=== PATIENT | male | born 1950 | race Caucasian/White ===

== ENCOUNTER 2017-04-11 03:19 | Observation (INO) | payer MEDICAID ==
[2017-04-11] MEDS ORDERED: Enoxaparin(*) 40 MG/0.4 ML SYR SUBCUT SCH (07:00)
[2017-04-11] MEDS ORDERED: LORazepam TAB(*) 0.5 MG PO PRN (07:48)
[2017-04-11] MEDS ORDERED: hydrOXYzine HCL TAB* 25 MG PO PRN (07:48)
[2017-04-11] MEDS ORDERED: Nitroglycerin TAB 0.4 MG* 0.4 MG TAB SL PRN (07:48)
[2017-04-11] MEDS ORDERED: Acetaminophen TAB* 325 MG PO PRN (07:48)
[2017-04-11] MEDS ORDERED: Metoprolol Tartrate TAB* 25 MG PO SCH (09:00)
[2017-04-11] MEDS: Mometasone/Formoter 100/5 MDI INH SCH ×2 (09:47→20:17)
[2017-04-11] MEDS: Rivaroxaban TAB(*) 20 MG TAB PO SCH (10:11)
[2017-04-11] MEDS: levETIRAcetam TAB* 500 MG PO SCH ×2 (10:11→21:23)
[2017-04-11] MEDS: Tamsulosin CAP* 0.4 MG PO SCH (10:12)
[2017-04-11] MEDS: Metoprolol Tartrate TAB* 25 MG PO SCH ×2 (10:12→21:23)
[2017-04-11] MEDS: Omeprazole CAP* 20 MG PO SCH (10:12)
[2017-04-11] MEDS: Docusate CAP* 100 MG PO SCH ×2 (10:12→21:23)
[2017-04-11] MEDS: Aspirin Low Dose CHEW TAB* 81 MG PO SCH (10:13)
[2017-04-11] MEDS: Magnesium Oxide TAB* 400 MG PO SCH (10:13)
[2017-04-11] MEDS: hydrALAZINE TAB* 25 MG PO SCH ×3 (10:13→21:23)
[2017-04-11] MEDS: Multivitamins/Minerals TAB PO SCH (10:14)
[2017-04-11] MEDS: busPIRone TAB* 5 MG PO SCH ×2 (10:14→21:23)
[2017-04-11] MEDS: IPRATROPIUM BROMIDE 0.03% BOTH NARES SCH ×2 (10:35→21:24)
[2017-04-11] MEDS: CMC:Varenicline (NF) 1 MG TAB PO SCH ×2 (10:38→21:23)
--- NOTE | 2017-04-11 12:17 | HP ---
CC: Dr. Zeus Sandoval, [facility] HISTORY AND PHYSICAL: DATE OF ADMISSION: 04/11/17 TIME OF EVALUATION: 7:15 a.m. PRIMARY CARE PROVIDER: Dr. Zeus Sandoval at [facility]. CHIEF COMPLAINT: Chest pain. HISTORY OF PRESENT ILLNESS: Mr. Aguilera is a 66-year-old male with a past medical history of schizop hrenia, seizure disorder, COPD, diverticulosis, hypertension, tobacco abuse, who presented to [facility]'s Emergency Room with complaints of chest pain. The patient states he was in his usual state of health until 4 days ago when he started to have left -sided chest pain, radiating to his axilla, rated at 8/10. He is unable to describe its nature. He states that he was lying in bed watching TV and he did not want to worry anyone, so he just stayed in bed and after 10 to 15 minutes, the pain resolved. It was not associated with dizziness, lighthe adedness, palpitations, shortness of breath, diaphoresis, nausea, vomiting, or other symptoms. He s tates the next day, he was walking to his room and he had another similar episode. He laid in his b ed and after 10 to 15 minutes, the pain resolved once more. Yesterday, as he had an episode for the third time, he decided to ask for help and was taken to the emergency room for further evaluation. The patient states that he received 2 nitroglycerins in the emergency room and his pain resolved, and he states that he is still chest pain-free at this time. As per records from [place], the patient's EKG showed sinus rhythm with a left axis deviation and a right ventricular conduction delay. His first troponin was 0.007 and a repeat one had increased to 0.021, and for that reason, they consulted [place] [facility] [place] t o a facility with a cardiology service. The patient states that 20 years ago, he had a "heart attack." He does not remember in which hospit al he was admitted, but he denies having a stress test or a heart cath. He states that the pain he felt this time is different from the chest pain he experienced in the past. He states he last saw his primary care provider 3 weeks ago and was told that "everything was okay." At the time of our interview, the patient's only complaint is that he is hungry. PAST MEDICAL HISTORY: 1. Hypertension. 2. COPD. 3. Tobacco abuse. 4. Seizure disorder. 5. Schizophrenia. MEDICATION LIST: 1. Acetaminophen 650 mg p.o. q.4 hours p.r.n. pain or fever. 2. Ativan 0.5 mg p.o. daily as needed for anxiety. 3. Buspirone 15 mg p.o. b.i.d. 4. Colace 100 mg p.o. b.i.d. 5. Hydralazine 25 mg p.o. t.i.d. 6. Hydroxyzine 25 mg p.o. at bedtime as needed for insomnia. 7. Ipratropium nasal spray 0.03% to both nares b.i.d. 8. Keppra 1000 mg p.o. b.i.d. 9. Metoprolol tartrate 25 mg p.o. b.i.d. 10. Dulera 100/5 one puff inhaled b.i.d. 11. Multivitamin 1 tablet p.o. daily. 12. Nitroglycerin 0.4 mg sublingual q.5 minutes as needed for chest pain, maximum 3 doses. 13. Olanzapine 15 mg p.o. at bedtime. 14. Omeprazole 20 mg p.o. daily. 15. Xarelto 20 mg p.o. daily. 16. Tamsulosin 0.4 mg p.o. daily. 17. Chantix 1 mg p.o. b.i.d. ALLERGIES: With PENICILLIN and THORAZINE, the patient experienced swelling of his face. FAMILY HISTORY: The patient states he was adopted and does not know his family history. SOCIAL HISTORY: The patient is a smoker since age 17. He states that at his peak, he used to smoke 2 packs a day, but now he is down to 5 cigarettes a day. He denies alcohol use. He states when he was younger, he used marijuana, but denied any recent drug use. Surrogate decision maker is Vasyl Napoles, caregiver at [facility], phone number is [phone]. REVIEW OF SYSTEMS: A 14-point review of systems was performed and all the pertinent negative and po sitive findings are in the HPI. PHYSICAL EXAMINATION GENERAL: The patient is a pleasant elderly male, lying in bed, in no acute distress. VITAL SIGNS: Temperature 98.2, heart rate 62, respiratory rate is 18, oxygen saturation 97% on 2 L nasal cannula, blood pressure is 162/94. HEENT: Pupils are equal, moist mucous membranes. The patient is edentulous. CHEST: Breath sounds present bilaterally with no added sounds. CVS: Normal S1, S2. Regular rate and rhythm. ABDOMEN: Soft. Bowel sounds present. EXTREMITIES: No edema. NEUROLOGIC: He is alert, awake, and oriented x3. Able to move all 4 extremities. SKIN: There are no rashes. The patient has multiple tattoos. LABORATORY AND IMAGING DATA: At [facility], the patient had a troponin that was 0.007 and w ent up to 0.021. INR was 1.06. Urine toxicology was negative for opiates, oxycodone, barbiturates, tricyclic antidepressants, PCP, amphetamines, benzos, cocaine, and cannabis. Urinalysis was normal . Chemistries showed a sodium of 137, potassium of 3.9, chloride of 103, bicarb of 24, BUN of 5, cr eatinine of 1, glucose of 132, calcium of 8.6, third bilirubin of 0.3, AST 27, ALT 24, alk phos 83, CPK 202. CK-MB 3, serum total protein 7.2, albumin 3.8, D-dimer less than 400. CBC showed a WBC of 10, hemoglobin 14.3, hematocrit of 42, platelets 246 with 65% neutrophils. Chest x-ray done at [facility] was read as basilar scarring in the left lung base with no acu te cardiopulmonary disease and no interval change from prior. I did see his film and I did not see any acute pulmonary disease. EKG done at [place] showed sinus rhythm at 66 beats per minute with incomplete right bundle branch block. Left inferior fascicular block, but he had movement artifact. So another one was done and i t showed sinus bradycardia at 52 beats per minute with incomplete right bundle branch block, abnorma l left axis deviation, but no acute ischemic changes. Another E[place] [facility] [place] and it showed sin us rhythm at 62 beats per minute and no other significant changes from his prior EKGs done at [facility]. ASSESSMENT AND PLAN: Mr. Aguilera is a 66-year-old male with a past medical history of hypertension, chronic obstructive pulmonary disease, schizophrenia, seizure disorder, who was sent from [facility] for concern of chest pain with increase in troponins. 1. Chest pain. Rule out acute coronary syndrome. The patient is unable to give much more details about his pain, but it seems to be atypical in joe burger. He will be admitted to telemetry floor. He will be monitored on telemetry. He will have serial tro ponins. The patient states he had a workup for chest pain 20 years ago, but he is unable to give de tails of where it was done or test results. As outpatient, he is on aspirin and metoprolol. So, I will try to obtain records from Dr. Sandoval. The patient is also on Xarelto, but he does not know exactly why and I cannot find any specific dawson cation on his records at this time. We will obtain records from Dr. Sandoval to clarify it. If acute coronary syndrome is ruled out, the patient will undergo an exercise nuclear stress test. He is chest pain-free with no acute EKG changes. So, at this point, I do not think he needs to be a nticoagulated with heparin. If he develops further symptoms or if his troponins continue to trend u p, he may require it and at that point, he may need a Cardiology consultation. 2. Hypertension. We will continue metoprolol and hydralazine. 3. Schizophrenia. We will continue lorazepam, olanzapine, hydroxyzine. 4. Seizure disorder. We will continue Keppra. 5. DVT prophylaxis. The patient has a score of 4 on the DVT Prophylaxis Risk Assessment Guide and eveline burger is already on Xarelto. 6. Code status is full. TIME SPENT: Approximately 65 minutes was spent with the patient interview, medical record review, p hysical examination to complete this admission, and more than half this time was spent [id number] with the patient in coordination of care. [id number]/[facility] #: [id number]
[2017-04-11] MEDS ORDERED: OLANzapine TAB* 5 MG PO SCH (21:00)
[2017-04-12 05:13] LABS: Hematocrit 39 % (42-52); Hemoglobin 13.3 g/dl (14.0-18.0); Mean Corpuscular HGB Conc 34 g/dl (31-36); Mean Corpuscular Hemoglobin 28 pg (27-31); Mean Corpuscular Volume 83 fL (80-94); Mean Platelet Volume 10 um3 (7.4-10.4); Red Blood Count 4.77 10^6/ul (4.0-5.4); Red Cell Distribution Width 14 % (10.5-15); White Blood Count 9.8 10^3/ul (3.5-10.8)
[2017-04-12 05:27] LABS: BUN/Creatinine Ratio 13.3 (8-20); Calcium 8.8 mg/dL (8.6-10.3); EGFR Non-African American 93.3 (>60); HDL Cholesterol 26.9 mg/dL; Potassium 3.5 mmol/L (3.5-5.0)
[2017-04-12] MEDS: Multivitamins/Minerals TAB PO SCH (08:38)
[2017-04-12] MEDS: Rivaroxaban TAB(*) 20 MG TAB PO SCH (08:38)
[2017-04-12] MEDS: Omeprazole CAP* 20 MG PO SCH (08:38)
[2017-04-12] MEDS: CMC:Varenicline (NF) 1 MG TAB PO SCH (08:38)
[2017-04-12] MEDS: Docusate CAP* 100 MG PO SCH (08:39)
[2017-04-12] MEDS: Tamsulosin CAP* 0.4 MG PO SCH (08:39)
[2017-04-12] MEDS: hydrALAZINE TAB* 25 MG PO SCH ×2 (08:39→17:40)
[2017-04-12] MEDS: busPIRone TAB* 5 MG PO SCH (08:40)
[2017-04-12] MEDS: Aspirin Low Dose CHEW TAB* 81 MG PO SCH (08:40)
[2017-04-12] MEDS: Magnesium Oxide TAB* 400 MG PO SCH (08:40)
[2017-04-12] MEDS: levETIRAcetam TAB* 500 MG PO SCH (08:40)
[2017-04-12] MEDS: IPRATROPIUM BROMIDE 0.03% BOTH NARES SCH (08:41)
[2017-04-12] MEDS: Mometasone/Formoter 100/5 MDI INH SCH (09:34)
[2017-04-12] MEDS ORDERED: Regadenoson* 0.4 MG/5 ML SYRINGE ONE ×2 (13:18)
--- NOTE | 2017-04-12 14:08 | RAD ---
Edited for charges. INDICATION: Chest pain, shortness of breath, hypertension, tobacco use. COMPARISON: No relevant prior exams available on the [facility] PACS for comparison. TECHNIQUE: 10.990 mCi of Tc-99m Myoview were administered IV. SPECT images of the heart were obtained. Later on the same day. Under the direction of Dr. Ware, the patient was given an IV injection of a pharmacologic stress agent. Subsequently, the patient was given an IV injection of 25.580 mCi Tc-99m Myoview. SPECT images of the heart were obtained and a gated wall motion study was performed. FINDINGS: Gated wall motion images were obtained at stress and demonstrate wall motion to be within normal limits. The calculated left ventricular ejection fraction is 76 % at stress. Estimated LEFT ventricular end diastolic volume is 67 mL. TID 0.89. Diaphragmatic attenuation and inferior gut activity noted. Based on review of the attenuation corrected and non corrected images the distribution of radiopharmaceutical within the myocardium on the stress and rest images is within normal limits. No fixed or reversible regions of hypoperfusion evident. IMPRESSION: 1. No compelling evidence for stress-induced ischemia or infarct. 2. Normal LEFT ventricular wall motion and estimated ejection fraction. Normal range estimated LEFT ventricular end-diastolic volume. ASSESSMENT: LOW RISK. Based on imaging criteria from ACC/AHA 2002 Guideline Update for the Management of Patients With Chronic Stable Angina Table 23. Noninvasive Risk Stratification. MTDD
--- NOTE | 2017-04-12 15:11 | PN ---
Subjective Date of Service: 04/12/17 Interval History: Mr. Aguilera denies complaint today and is eager for discharge. He specifically denies chest pain, SOB, nausea, or abdominal pain. Objective Active Medications: Acetaminophen (Tylenol Tab*) 650 mg PO Q4HR PRN Aspirin (Aspirin Low Dose Tab*) 81 mg PO DAILY [facility] Buspirone HCl (Buspar Tab*) 15 mg PO BID [facility] Docusate Sodium (Colace Cap*) 100 mg PO BID [facility] Hydralazine HCl (Apresoline Tab*) 25 mg PO TID [facility] Hydroxyzine HCl (Atarax Tab*) 25 mg PO BEDTIME PRN Levetiracetam (Keppra Tab*) 1,000 mg PO BID [facility] Lorazepam (Ativan Tab(*)) 0.5 mg PO DAILY PRN Magnesium Oxide (Magox 400 Tab*) 400 mg PO DAILY [facility] Mometasone Furoate/Formoterol Fumar (Dulera 100/5 Mdi*) 1 puff INH BID [facility] Multivitamins/Minerals (Theragran/Minerals Tab*) 1 tab PO DAILY [facility] Nitroglycerin (Nitroglycerin Tab 0.4 Mg*) 0.4 mg SL Q5M PRN Nf:(Ipratropium [place] (Nasal) [ Ipratropium [place]] 0.03 %) 0.03 % BOTH NARES BID [facility] Olanzapine (Zyprexa Tab*) 15 mg PO BEDTIME [facility] Omeprazole (Prilosec Cap*) 20 mg PO DAILY [facility] Rivaroxaban (Xarelto (*)) 20 mg PO DAILY [facility] Tamsulosin HCl (Flomax Cap*) 0.4 mg PO DAILY [facility] Varenicline (Chantix (Nf)) 1 mg PO BID [facility] Vital Signs 04/11/17 04/11/17 04/11/17 15:14 19:28 23:22 Temperature 98.3 F 99.1 F 98.3 F Pulse Rate 62 82 81 Respiratory 16 16 22 Rate Blood Pressure 130/56 151/73 155/73 (mmHg) O2 Sat by Pulse 94 94 91 Oximetry 04/12/17 04/12/17 04/12/17 02:46 07:36 11:40 Temperature 99.2 F 97.7 F 98.4 F Pulse Rate 70 59 72 Respiratory 22 24 24 Rate Blood Pressure 139/51 148/73 138/73 (mmHg) O2 Sat by Pulse 91 95 90 Oximetry Oxygen Devices in Use Now: None Appearance: Male lying in bed in NAD Eyes: No Scleral Icterus Ears/Nose/Mouth/Throat: Mucous Membranes Moist Neck: NL Appearance and Movements; NL JVP Respiratory: Symmetrical Chest Expansion and Respiratory Effort, Clear to Auscultation Cardiovascular: NL Sounds; No Murmurs; No JVD, No Edema Abdominal: NL Sounds; No Tenderness; No Distention Lymphatic: No Cervical Adenopathy Extremities: No Edema Skin: No Rash or Ulcers Neurological: Alert and Oriented x 3, NL Muscle Strength and Tone Nutrition: Taking PO's Result Diagrams: 04/12/17 04:37 04/12/17 04:37 Microbiology and Other Data: Microbiology 04/11/17 07:30 Nasal Screen MRSA (PCR)(TAYLER) - Final Nasal Mrsa Negative Assess/Plan/Problems-Billing Assessment: Mr. Aguilera is a 66 yo male with a PMH of nicotine abuse, schizophrenia, and COPD who was admitted on 04/12/17 with chest pain. - Patient Problems (1) Chest pain Comment: - Trops negative, EKG without ischemia. - Stress test read as low risk with no evidence of reversible ischemia. (2) COPD (chronic obstructive pulmonary disease) Comment: - No evidence of exacerbation. - Continue dulera. (3) Nicotine abuse Comment: - Continue chantix. (4) Full code status (5) Seizure disorder Comment: - Continue keppra. (6) DVT prophylaxis Comment: - Patient on xarelto without clear indication. Have left a message with [facility] and Dr. Sandoval's nurse (his PCP). Status and Disposition: OBV. Discharge to home.
[2017-04-12 16:29] VITALS: BP 141/80
--- NOTE | 2017-04-13 02:17 | DS ---
CC: Dr. Zeus Sandoval, [place] * DISCHARGE SUMMARY: DATE OF ADMISSION: 04/11/17 DATE OF DISCHARGE: 04/12/17 PRIMARY CARE PROVIDER: Dr. Zeus Sandoval at [place]. ATTENDING PHYSICIAN: Dr. Venkat Morocho * (dictation provided by Umu Zimmer NP ). PRIMARY DIAGNOSIS: Chest pain. SECONDARY DIAGNOSES: 1. Hypertension. 2. Chronic obstructive pulmonary disease. 3. Tobacco abuse. 4. Seizure disorder. 5. Schizophrenia. MEDICATIONS AT THE TIME OF DISCHARGE: Unchanged that are: 1. Tylenol 650 mg p.o. q.4 hours p.r.n. pain or fever. 2. Ativan 0.5 mg p.o. daily as needed for anxiety. 3. BuSpar 15 mg p.o. b.i.d. 4. Colace 100 mg p.o. b.i.d. 5. Hydralazine 25 mg p.o. t.i.d. 6. Hydroxyzine 25 mg p.o. at bedtime as needed for insomnia. 7. Ipratropium nasal spray 0.03% to both nares b.i.d. 8. Keppra 1000 mg p.o. b.i.d. 9. Metoprolol tartrate 25 mg p.o. b.i.d. 10. Dulera 100/5 one puff inhaled b.i.d. 11. Multivitamin 1 tab p.o. daily. 12. Nitroglycerin 0.4 mg sublingually q.5 minutes as needed for chest pain. 13. Olanzapine 15 mg p.o. at bedtime. 14. Omeprazole 20 mg p.o. daily. 15. Xarelto 20 mg p.o. daily. 16. Tamsulosin 0.4 mg p.o. daily. 17. Chantix 1 mg p.o. b.i.d. HOSPITAL COURSE: Mr. Aguilera is a 66-year-old male with past medical history as outlined above, who presented to the emergency room on 04/11/17 with concern for chest pain. Please see the dictated H and P from Dr. Mariola Moncada for complete details. In brief, the patient had chest pain intermittently for about 4 days. In the emergency room, he had an EKG, which showed no evidence of ischemia and troponin, which was negative. Mr. Aguilera was placed on observation in the hospital. He had labs, which showed negative troponins x3. He had a stress test today, which was read as low risk with no evidence of reversible ischemia. Mr. Aguilera has been doing well since admission. He is not complaining of chest pain. His vital signs are stable. His exam is benign. Please see my daily progress note for complete details. Mr. Aguilera is medically stable for discharge back to Dr. Sandoval. I will note that the patient is on Xarelto and I cannot find a clear indication for that medication thoughI have called Dr. Sandoval's office and the [facility]. The [facility] reports that he was admitted there on Xarelto for DVT prophylaxis. It is not clear per our records that there is any history of DVT, PE or AFib. I have left a message both at the [facility] and with Dr. Sandoval's nurse, Annabelle , regarding this and asked them to make sure that they can verify indication for the Xarelto going forward. DISPOSITION: Home. DIET: Low-salt. ACTIVITY: As tolerated. FOLLOWUP PLANS: Please follow up with Dr. Sandoval per routine in the next 1 to 2 weeks regarding this acute hospitalization. UMU ZIMMER NP [id number]/[facility] #: [id number] MATTHIAS
== END 2017-04-12 18:33 | disposition home or self-care (01) ==
LOC: MEDTELE 06:20
PROVIDERS: ADMIT Internal Medicine; ATTEND Internal Medicine
DX: R07.9 Chest pain, unspecified (principal); I10 Essential (primary) hypertension; J44.9 Chronic obstructive pulmonary disease, unspecified; F17.200 Nicotine dependence, unspecified, uncomplicated; G40.909 Epilepsy, unspecified, not intractable, without status epilepticus; F20.9 Schizophrenia, unspecified; Z79.01 Long term (current) use of anticoagulants; Z88.0 Allergy status to penicillin; Z79.82 Long term (current) use of aspirin
CPT/HCPCS: 36415; 78452; 80048; 80061; 84484; 85025; 87641; 93005; 93017; 94640; A9270-GY; A9502; G0378; J2785

== ENCOUNTER 2018-10-13 11:13 | Inpatient (IN) | payer MEDICARE, MEDICAID ==
--- NOTE | 2018-10-13 12:16 | ED ---
Psychiatric Complaint - HPI Summary HPI Summary: 68 year old M brought in by police 941 to [facility] with a chief complaint of suicidal ideation since three days ago, worse since this morning. The patient rates the pain 2/10 in severity. Symptoms aggravated by nothing. Symptoms alleviated by nothing. Patient reports insomnia. He reports suicidal plan to cut his arms. Patient denies decreased appetite. Per police, patient refused to take his medication today. Patient is staying at [facility] in [place]. Patient has hx cutting. - History Of Current Complaint Chief Complaint: EDMentalHealth Time Seen by Provider: 10/13/18 11:53 Hx Obtained From: Patient, Other: - police Onset/Duration: Lasting Days - 3, Still Present, Worse Since - this morning Timing: Constant Severity Currently: Mild Aggravating Factor(s): Nothing Alleviating Factor(s): Nothing Has Suicidal: Reports: Thoughts, With A Plan - Allergies/Home Medications Allergies/Adverse Reactions: Allergies Allergy/AdvReac Type Severity Reaction Status Date / Time chlorpromazine Allergy Swelling Verified 10/13/18 11:54 [From Thorazine] Penicillins Allergy Swelling Verified 10/13/18 11:54 Home Medications: Home Medications Fluticasone-Salmeterol 250-50* [Advair Diskus 250-50*] 1 puff INH BID 10/13/18 [ History Confirmed 10/13/18] OLANzapine TAB* [Zyprexa 10 MG TAB*] 10 mg PO DAILY 10/13/18 [History Confirmed 10/13/18] Sertraline* [Zoloft*] 50 mg PO BEDTIME 10/13/18 [History Confirmed 10/13/18] traMADol TAB* [Ultram*] 50 mg PO DAILY 10/13/18 [History Confirmed 10/13/18] PMH/Surg Hx/FS Hx/Imm Hx Previously Healthy: No Endocrine/Hematology History: Denies: Hx Diabetes Cardiovascular History: Reports: Hx Angina, Hx Hypertension Denies: Hx Coronary Artery Disease, Hx Hypercholesterolemia, Hx Myocardial Infarction, Hx Valvular Heart Disease Respiratory History: Reports: Hx Chronic Obstructive Pulmonary Disease (COPD) Denies: Hx Asthma GI History: Comment Only: Other GI Disorders - c/o intermittent heartburn Sensory History: Reports: Hx Contacts or Glasses Denies: Hx Deafness, Hx Hearing Aid Opthamlomology History: Reports: Hx Contacts or Glasses Neurological History: Reports: Hx Headaches, Hx Seizures Psychiatric History: Reports: Hx Depression, Hx Inpatient Treatment, Hx Community Mental Health Tx, Hx Schizophrenia, Hx Suicide Attempt, Hx Substance Abuse Denies: Hx Eating Disorder, Hx of Violent Episodes Against Others - Surgical History Surgery Procedure, Year, and Place: rhinoplasty 1971. undescended L testicle 1968 Hx Anesthesia Reactions: No Infectious Disease History: No Infectious Disease History: Denies: Traveled Outside the [place] in Last 30 Days - Family History Known Family History: Positive: Other - patient is adopted so he does not know his family history - Social History Alcohol Amount: "as much as I can get" Hx Substance Use: Yes Substance Use Type: Reports: Marijuana Hx Tobacco Use: Yes Smoking Status (MU): Heavy Every Day Tobacco Smoker Type: Cigarettes Amount Used/How Often: 1 PPD Length of Time of Smoking/Using Tobacco: "years" Review of Systems Gastrointestinal: Negative - decreased appetite Positive: Other - suicidal ideation, suicidal plan, insomnia All Other Systems Reviewed And Are Negative: Yes Physical Exam - Summary Physical Exam Summary: Appearance: The patient is well-nourished in no acute distress and in no acute pain. Skin: Patient has well-healed scars on his L left forearm HEENT: The head is normocephalic and atraumatic. The pupils are equal and reactive. The conjunctivae are clear and without drainage. Nares are patent and without drainage. Mouth reveals moist mucous membranes and the throat is without erythema and exudate. The external ears are intact. The ear canals are patent and without drainage. The tympanic membranes are intact. Neck: The neck is supple with full range of motion and non-tender. There are no carotid bruits. There is no neck vein distension. Respiratory: Chest is non-tender. Lungs are clear to auscultation and breath sounds are symmetrical and equal. Cardiovascular: Heart is regular rate and rhythm. There is no murmur or rub auscultated. There is no peripheral edema and pulses are symmetrical and equal. Abdomen: The abdomen is soft and non-tender. There are normal bowel sounds heard in all four quadrants and there is no organomegaly palpated. Musculoskeletal: There is no back tenderness noted. Extremities are non-tender with full range of motion. There is good capillary refill. There is no peripheral edema or calf tenderness elicited. Neurological: Patient is alert and oriented to person, place and time. The patient has symmetrical motor strength in all four extremities. Cranial nerves are grossly intact. Deep tendon reflexes are symmetrical and equal in all four extremities. Psychiatric: The patient has an appropriate affect and does not exhibit any anxiety or depression Triage Information Reviewed: Yes Vital Signs On Initial Exam: Initial Vitals Temp Pulse Resp BP Pulse Ox 99.8 F 92 16 166/71 92 10/13/18 11:15 10/13/18 11:15 10/13/18 11:15 10/13/18 11:15 10/13/18 11:15 Vital Signs Reviewed: Yes Diagnostics - Vital Signs Vital Signs Temp Pulse Resp BP Pulse Ox 10/13/18 11:44 97 29 140/79 92 10/13/18 11:42 18 10/13/18 11:15 99.8 F 92 16 166/71 92 - Laboratory Result Diagrams: 10/13/18 12:52 10/13/18 16:10 Lab Statement: Any lab studies that have been ordered have been reviewed, and results considered in the medical decision making process. Course/Dx - Course Course Of Treatment: E spoke with Dr. Archer, psychiatry who offered Mr. Aguilera a voluntary admission which she accepted. - Differential Dx/Clinical Impression Provider Diagnosis: Unspecified mood [affective] disorder Discharge - Sign-Out/Discharge Documenting (check all that apply): Patient Departure - Admit Patient Received Moderate/Deep Sedation with Procedure: No - Discharge Plan Condition: Stable Disposition: PSYCHIATRIC FACILITY-OTHER - Billing Disposition and Condition Condition: STABLE Disposition: Psychiatric Facility Other - Attestation Statements Document Initiated by Scribe: Yes Documenting Scribe: Indy Carpenter Provider For Whom Gwen is Documenting (Include Credential): Juan José Frankel MD Scribe Attestation: IIndy, scribed for Juan José Frankel MD on 10/13/18 at 2044. Scribe Documentation Reviewed: Yes Provider Attestation: The documentation as recorded by the karinibIndy burger accurately reflects the service I personally performed and the decisions made by me, Juan José Frankel MD Status of Scribe Document: Viewed
[2018-10-13 13:07] LABS: ABS Basophils 0 10^3/ul (0-0.2); ABS Eosinophils 0 10^3/ul (0-0.6); ABS Lymphocytes 1.3 10^3/ul (1.0-4.8); ABS Monocytes 0.8 10^3/ul (0-0.8); ABS Neutrophils 5.7 10^3/ul (1.5-7.7); ABS Nucleated RBC 0 10^3/ul; Eosinophil % 0.6 %; Hematocrit 42 % (42-52); Hemoglobin 13.3 g/dl (14.0-18.0); Lymphocyte % 16.9 %; Mean Corpuscular HGB Conc 32 g/dl (31-36); Mean Corpuscular Hemoglobin 26 pg (27-31); Mean Corpuscular Volume 79 fL (80-94); Mean Platelet Volume 9.2 fL (7.4-10.4); Nucleated Red Blood Cells % 0; Platelet Count 175 10^3/ul (150-450); Red Blood Count 5.22 10^6/ul (4.00-5.40); Red Cell Distribution Width 16 % (10.5-15); White Blood Count 7.9 10^3/ul (3.5-10.8)
[2018-10-13 13:52] LABS: Acetaminophen < 15 mcg/mL; Alcohol < 10 mg/dL (<10); Salicylate < 2.50 mg/dL (<30)
[2018-10-13 15:40] LABS: Albumin 4.5 g/dL (3.2-5.2); Albumin/Globulin Ratio 1.8 (1-3); Alkaline Phosphatase 77 U/L (34-104); Anion Gap 15 mmol/L (2-11); BUN/Creatinine Ratio 6.8 (8-20); Blood Urea Nitrogen 7 mg/dL (6-24); CO2 Carbon Dioxide 17 mmol/L (22-32); Calcium 9.1 mg/dL (8.6-10.3); Chloride 106 mmol/L (101-111); EGFR African American 87.4 (>60); EGFR Non-African American 72.3 (>60); Globulin 2.5 g/dL (2-4); Glucose 86 mg/dL (70-100); Sodium 138 mmol/L (135-145)
[2018-10-13 15:41] LABS: ALT 12 U/L (7-52)
--- NOTE | 2018-10-13 16:07 | CONSULT ---
Consult Consult: Vital Signs Temp Pulse Resp BP Pulse Ox 98.8 F 66 16 171/67 97 10/13/18 15:06 10/13/18 15:06 10/13/18 15:06 10/13/18 15:06 10/13/18 15:06 Patient currently suicidal with plan to cut wrist with a razor. Patient requires Inpatient Psychiatric Hospitalization once medically cleared, Blood pressure currently 171/67.
[2018-10-13 16:46] LABS: Potassium Redraw 3.8 mmol/L (3.5-5.0)
[2018-10-13 17:03] LABS: TSH (Thyroid Stimulating Horm) 1.55 mcIU/mL (0.34-5.60)
[2018-10-13] MEDS ORDERED: Metoprolol Tartrate TAB* 25 MG PO ONE (17:41)
[2018-10-13] MEDS ORDERED: traMADol TAB* 50 MG PO ONE (17:41)
[2018-10-13] MEDS ORDERED: hydrALAZINE TAB* 25 MG PO ONE (17:41)
[2018-10-13 18:22] LABS: Urine Appearance Clear; Urine Bilirubin Negative (Negative); Urine Blood Negative (Negative); Urine Color Yellow; Urine Glucose Negative (Negative); Urine Ketones Negative (Negative); Urine Nitrite Negative (Negative); Urine Protein Negative (Negative); Urine Specific Gravity 1.012 (1.010-1.030); Urine Urobilinogen Negative (Negative)
[2018-10-13 18:40] LABS: Barbiturates Urine Screen None Detected (None Detect); Benzodiazepine Urine Screen None Detected (None Detect); Urine Cannabinoids Screen None Detected (None Detect)
[2018-10-13] MEDS ORDERED: Acetaminophen TAB* 325 MG PO PRN (21:15)
[2018-10-13] MEDS ORDERED: Nicotine GUM* 2 MG PO PRN (21:15)
[2018-10-13] MEDS ORDERED: Al Hydrox/Mg Hydrox/Simet LIQ* 30 ML UDC PO PRN (21:15)
[2018-10-13] MEDS ORDERED: Nitroglycerin TAB 0.4 MG* 0.4 MG TAB SL PRN (21:44)
[2018-10-13] MEDS ORDERED: Sertraline* 50 MG TAB PO SCH (22:15)
[2018-10-13] MEDS: Metoprolol Tartrate TAB* 25 MG PO SCH (22:55)
[2018-10-13] MEDS: hydrALAZINE TAB* 25 MG PO SCH (22:55)
[2018-10-13] MEDS: busPIRone TAB* 15 MG PO SCH (22:55)
[2018-10-13] MEDS: levETIRAcetam TAB* 500 MG PO SCH (22:55)
[2018-10-14 06:58] LABS: HDL Cholesterol 30.2 mg/dL
[2018-10-14] MEDS: Tamsulosin CAP* 0.4 MG PO SCH (12:39)
[2018-10-14] MEDS: Pantoprazole TAB * 40 MG TAB PO SCH (12:39)
[2018-10-14] MEDS: busPIRone TAB* 15 MG PO SCH ×2 (12:39→22:06)
[2018-10-14] MEDS: Vitamin THERAPEUTIC TAB PO SCH (12:39)
[2018-10-14] MEDS: levETIRAcetam TAB* 500 MG PO SCH ×2 (12:40→22:06)
[2018-10-14] MEDS: hydrALAZINE TAB* 25 MG PO SCH ×3 (12:40→22:06)
[2018-10-14] MEDS: traMADol TAB* 50 MG PO SCH (12:40)
[2018-10-14] MEDS: Rivaroxaban TAB(*) 20 MG TAB PO SCH (12:40)
[2018-10-14] MEDS: Metoprolol Tartrate TAB* 25 MG PO SCH ×2 (12:40→22:06)
[2018-10-14] MEDS: OLANzapine TAB* 10 MG PO SCH (12:41)
[2018-10-14] MEDS: FLUTICASONE SALMETEROL INH SCH ×2 (13:31→19:05)
--- NOTE | 2018-10-14 13:48 | HP ---
H&P (Free Text) History and Physical: Justification for admission: Immediate Safety. CC " I thought about cutting my wrist" The patient was brought to [facility] by ambulance after he stated he was going to the bathroom and cut his wrist with a razor blade. He denied access to firearms or stockpiles of medications. He reported adequate sleep and appetite. He reports that he has been staying at the [facility] and doesnt get to do the things he wants to do and that makes him feel depressed . He did not note what things he would like to do. He reported taking his medications The patient denied homicidal ideation intent or plan. The patient denied auditory and/ or visual hallucinations. MDD He reported feeling depressed for most of the time, lasting more than 2 weeks. He reported feelings of hopelessness and unintentional weight loss. Denied interruption of sleep or feeling tired throughout the day. He reported loss of energy or lack of motivation to complete tasks. He denied overwhelming feelings of guilt, or decreased concentration. Bipolar Denied symptoms of jocelynn such as having many ideas at once. Denied increased talkativeness where no one can interrupt. Denied feeling irritable most of the time while having an persistent abundance of energy most of the day without the use of energy drinks, stimulants, or recreational drug use. Denied an increase in intensity in goal directed activities. Denied having the decreased need to sleep for days , having prolonged elevated heighted mood , or feeling on top of the world. Denied impulsive risky sexual encounters. Denied spending money recklessly , going on spending sprees wiping out savings. Denied impulsively traveling out of town or country, having super fragoso, and unrealistic wealth or fame. Anxiety Denied having symptoms of anxiety such as having times where heart feels that it is beating out of chest , sweaty palms, or shallow breathing. Denied having uncomfortable or intrusive thoughts. Denied feeling restless, high strung, or worrying too much most of the time. Psychosis Does not endorse hearing things that other people do not hear or seeing things other people do not see. Denied feeling that TV is making references. Denied feeling that people are spying , following , or reading their thoughts. Phobias: Patient denied having excessive fear of a particular thing or situation. Eating disorders: Patient denied having excessive eating habits or feelings of guilt after eating. Denied repeated episodes of self induced vomiting after eating. PTSD Denied flashbacks, nightmares and avoidance of a prior traumatic event. PAST PSYCHIATRIC HISTORY: Prior Diagnosis : Major Depressive Disorder History of past Psychiatric Hospitalizations: 1 prior psychiatric admission in 1978 for cutting his wrist History of past suicide/homicide attempts : 1 past suicide attempt in 1978. Denied past homicidal incidents. Outpatient follow-up: Unable to recall the name of his doctor Medications: Past trials of medications include zoloft 50mg and buspar 15mg BID, zyprexa 10mg daily FAMILY HISTORY: - Suicide: Denied family history of suicide. - Mental illness: Denied history mental health in the family. - Substance abuse: Denied substance abuse among family members. SUBSTANCE ABUSE HISTORY: Denied using alcohol, heroin and cocaine other illicit substances. Denied abusing pills not prescribed . Denied past Substance abuse treatment. - Tobacco: 1/2 Pack per day SOCIAL HISTORY: - Childhood: Born and raised in [facility]. Raised by both parents who are both from unknown causes. 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 He is currently retired and living at the [facility]. He has no supportive contacts of family or friends. PAST MEDICAL HISTORY: Hypertension - Allergies: Penicillin and Thorazine Physical Exam: Please see ED note Mental Status Exam on Admission APPEARANCE : 68 year old white male who appears much older than stated age. He is laying in bed with long cadet and appears disheveled. BEHAVIOR: Cooperative , calm EYE CONTACT: Fair PSYCHOMOTOR ACTIVITY: psychomotor retardation. MOVEMENTS: No abnormal movements observed. SPEECH : Normal rate, rhythm, volume and tone. MOOD : " Okay " AFFECT : Constricted THOUGHT PROCESS: formulated and organized in a logical, linear goal directed manner. THOUGHT CONTENT: no delusions, preoccupations, obsessions, phobias or preoccupations. PERCEPTION: No current auditory or visual hallucinations. Doesnt appear to be responding to internal cues. No evidence of depersonalization , de-realization, or illusions SUICIDALITY Suicidal with plan to cut wrist HOMICIDALITY Denied homicidal ideation, intent or plan. ORIENTATION: Oriented to self, location, and time. Insight/judgment: Poor insight and judgment Diagnosis on Admission: Major depressive disorder. Nicotine use disorder Assessment: 68 year old with history of Major depressive disorder with plan to cut wrist with razor came to the hospital and was admitted to the [facility] at [facility]. Plan # Justification for Admission: For immediate safety per outlined in the [facility] Hygiene Code. # Voluntary admission. The patient requires inpatient admission at this time to assure safety, receive treatment and work toward stabilization. # Labs ordered: CBC, CMP, UDS, TSH, HbA1c, TSH, EKG #Admit to BSU, Q15 minute observation. Start regular diet. Encourage participation in activities on the milieu. # Obtain collateral information once release is signed. #Patient evaluated in ED and was determined by the emergency room Physician to be medically stable for admission to the BSU. # Collaboration with Social Work to work toward discharge planning. #Fall precautions #Order for wheelchair if he requires it to ambulate with constant observation. He currently has a walker. #Increase Zoloft to 75mg at nighttime. #Medicine consult placed for uncontrolled hypertension which seems to be fluctuating erratically during the times of medication administration #Goals before discharge include: Decrease depression and eradicate suicidal thoughts The risks, benefits, and alternative treatment options were discussed as well as of the risks of refusing treatment. After this discussion and an acknowledgement of this understanding was made. A risk benefit assessment of treatment was considered and discussed with the patient. When comparing the risks of treatment with the dangers of current clinical presentation. The benefits of treatment outweigh the treatment risks at this time. Risks of behavioral changes, Serotonin syndrome, metabolic risks and were among some of the risks discussed. Acetaminophen (Tylenol Tab*) 650 mg PO Q4H PRN PRN Reason: PAIN or TEMP > 101 F Last Admin: 10/13/18 23:01 Dose: 650 mg Al Hydrox/Mg Hydrox/Simethicone (Maalox Plus*) 30 ml PO Q4H PRN PRN Reason: INDIGESTION Buspirone HCl (Buspar Tab *) 15 mg PO BID [facility] Last Admin: 10/14/18 12:39 Dose: 15 mg Hydralazine HCl (Apresoline Tab*) 25 mg PO TID [facility] Last Admin: 10/14/18 13:31 Dose: Not Given Levetiracetam (Keppra Tab*) 1,000 mg PO BID [facility] Last Admin: 10/14/18 12:40 Dose: 1,000 mg Metoprolol Tartrate (Lopressor Tab*) 25 mg PO BID [facility] Last Admin: 10/14/18 12:40 Dose: 25 mg Multivitamins (Theragran Tab*) 1 tab PO DAILY [facility] Last Admin: 10/14/18 12:39 Dose: 1 tab Nicotine (Nicotine Inhaler*) 10 mg INH Q2H PRN PRN Reason: CRAVING Nicotine Polacrilex (Nicotine Gum*) 2 mg PO Q2H PRN PRN Reason: CRAVING Nitroglycerin (Nitroglycerin Tab 0.4 Mg*) 0.4 mg SL Q5M PRN PRN Reason: CHEST PAIN Olanzapine (Zyprexa Tab*) 10 mg PO DAILY [facility] Last Admin: 10/14/18 12:41 Dose: 10 mg Pantoprazole Sodium (Protonix Tab*) 40 mg PO DAILY [facility] Last Admin: 10/14/18 12:39 Dose: 40 mg Rivaroxaban (Xarelto(*)) 20 mg PO DAILY [facility] Last Admin: 10/14/18 12:40 Dose: 20 mg Fluticasone/Salmeterol (Advair Diskus 250-50*) 1 puff INH RT.BID [facility] Last Admin: 10/14/18 13:31 Dose: Not Given Sertraline HCl (Zoloft*) 75 mg PO BEDTIME [facility] Tamsulosin HCl (Flomax Cap*) 0.4 mg PO DAILY [facility] Last Admin: 10/14/18 12:39 Dose: 0.4 mg Tramadol HCl (Ultram*) 50 mg PO DAILY [facility] Last Admin: 10/14/18 12:40 Dose: 50 mg Sodium 138 mmol/L (135-145) 10/13/18 12:52 Potassium 3.8 mmol/L (3.5-5.0) 10/13/18 16:10 BUN 7 mg/dL (6-24) 10/13/18 12:52 Creatinine 1.03 mg/dL (0.67-1.17) 10/13/18 12:52 Hemoglobin A1c 5.6 % (4.0-5.6) 10/14/18 06:17 Calcium 9.1 mg/dL (8.6-10.3) 10/13/18 12:52 AST 17 U/L (13-39) 10/13/18 16:10 ALT 12 U/L (7-52) 10/13/18 12:52 Triglycerides 171 mg/dL 10/14/18 06:17 Cholesterol 163 mg/dL 10/14/18 06:17 LDL Cholesterol 99 mg/dL 10/14/18 06:17 Acetaminophen (Tylenol Tab*) 650 mg PO Q4H PRN PRN Reason: PAIN or TEMP > 101 F Last Admin: 10/13/18 23:01 Dose: 650 mg Al Hydrox/Mg Hydrox/Simethicone (Maalox Plus*) 30 ml PO Q4H PRN PRN Reason: INDIGESTION Buspirone HCl (Buspar Tab *) 15 mg PO BID [facility] Last Admin: 10/14/18 12:39 Dose: 15 mg Hydralazine HCl (Apresoline Tab*) 25 mg PO TID [facility] Last Admin: 10/14/18 13:31 Dose: Not Given Levetiracetam (Keppra Tab*) 1,000 mg PO BID [facility] Last Admin: 10/14/18 12:40 Dose: 1,000 mg Metoprolol Tartrate (Lopressor Tab*) 25 mg PO BID [facility] Last Admin: 10/14/18 12:40 Dose: 25 mg Multivitamins (Theragran Tab*) 1 tab PO DAILY [facility] Last Admin: 10/14/18 12:39 Dose: 1 tab Nicotine (Nicotine Inhaler*) 10 mg INH Q2H PRN PRN Reason: CRAVING Nicotine Polacrilex (Nicotine Gum*) 2 mg PO Q2H PRN PRN Reason: CRAVING Nitroglycerin (Nitroglycerin Tab 0.4 Mg*) 0.4 mg SL Q5M PRN PRN Reason: CHEST PAIN Olanzapine (Zyprexa Tab*) 10 mg PO DAILY [facility] Last Admin: 10/14/18 12:41 Dose: 10 mg Pantoprazole Sodium (Protonix Tab*) 40 mg PO DAILY [facility] Last Admin: 10/14/18 12:39 Dose: 40 mg Rivaroxaban (Xarelto(*)) 20 mg PO DAILY [facility] Last Admin: 10/14/18 12:40 Dose: 20 mg Fluticasone/Salmeterol (Advair Diskus 250-50*) 1 puff INH RT.BID [facility] Last Admin: 10/14/18 13:31 Dose: Not Given Sertraline HCl (Zoloft*) 75 mg PO BEDTIME [facility] Tamsulosin HCl (Flomax Cap*) 0.4 mg PO DAILY [facility] Last Admin: 10/14/18 12:39 Dose: 0.4 mg Tramadol HCl (Ultram*) 50 mg PO DAILY [facility] Last Admin: 10/14/18 12:40 Dose: 50 mg Vital Signs Temp Pulse Resp BP Pulse Ox 98.1 F 68 16 120/43 95 10/14/18 08:28 10/14/18 14:07 10/14/18 14:07 10/14/18 14:07 10/14/18 14:07
--- NOTE | 2018-10-14 19:06 | CONS ---
CC: Dr. Sandoval * CONSULTATION REPORT: DATE OF CONSULT: 10/14/18 PRIMARY CARE PROVIDER: Dr. Sandoval. MY ATTENDING WHILE IN THE HOSPITAL: Dr. Mariola Moncada. CONSULTING PROVIDER: Dr. Ramsey Archer. REASON FOR CONSULTATION: Hypertension. HISTORY OF PRESENT ILLNESS: Mr. Aguilera is a 68-year-old male with past medical history significant for hypertension, COPD, seizure disorder, schizophrenia, and depression who is currently admitted to behavioral services unit for management of suicidal ideation and thoughts of self-harm. The patient is otherwise feeling well. The patient has not had any recent illnesses. The patient has had some unintentional weight loss, but has been eating much less than he normally does. The patient at the time of evaluation is lying in bed. He denies chest pain, shortness of breath. The patient states he occasionally gets dizzy upon standing, but this usually passes after several seconds. The patient cannot put a time-frame on how long this has occurred. The patient has never passed out from this. The patient denies shortness of breath, swelling in his legs, nausea, vomiting, dyspnea on exertion, orthopnea, PND. The patient denies changes in his urine, abdominal pain, diarrhea, fevers, chills, sick contacts, or recent changes in his medication. The patient seems very disinterested in the conversation, however, and the patient denies recent seizures. The patient states he has been taking all of his medications as prescribed. The patient's blood pressure at the time of evaluation was 120/68. PAST MEDICAL HISTORY: Hypertension, COPD, tobacco abuse, seizure disorder, schizophrenia, depression. PAST SURGICAL HISTORY: None. MEDICATIONS: On admission: 1. Xarelto 20 mg p.o. daily. 2. Lopressor 25 mg p.o. b.i.d. 3. Tamsulosin 0.4 mg p.o. daily. 4. Keppra 1000 units p.o. b.i.d. 5. BuSpar 15 p.o. b.i.d. 6. Omeprazole 20 mg p.o. daily. 7. Nitroglycerin 0.4 mg sublingually q.5 minutes as needed for chest pain. 8. Hydralazine 25 mg p.o. t.i.d. 9. Tylenol 325 mg p.o. q.4 hours as needed. 10. Olanzapine 10 mg p.o. daily. 11. Sertraline 50 mg p.o. at bedtime. 12. Tramadol 50 mg p.o. daily. 13. Advair Diskus 1 puff inhalation b.i.d. ALLERGIES: PENICILLIN, CHLORPROMAZINE. FAMILY HISTORY: The patient is unable or unwilling to provide any family history. He states he noticed nothing about it. SOCIAL HISTORY: The patient smokes about a pack a day. Denies alcohol or illicit drug abuse. The patient used to work training horses. The patient has never been and has no children. The patient declines to appoint a surrogate decision maker. REVIEW OF SYSTEMS: A 14-point review of systems was reviewed and is negative except as above in the HPI. PHYSICAL EXAM: General: The patient is a 68-year-old male who appears older than stated age, sitting comfortably in the bed, in no acute distress. Vital Signs: At the time of evaluation, temperature 98.1, pulse rate 68, respiratory rate 16, oxygen saturation 98% on room air, blood pressure 120/43. HEENT: Head : Normocephalic, atraumatic. Sclerae anicteric. No conjunctival injection. Nasal mucosa moist. Oral mucosa moist. No pharyngeal erythema, discharge, or exudate. Neck: Supple, nontender. No lymphadenopathy. No carotid bruit auscultated. No JVD. Cardiac: Regular rate and rhythm. No clicks, murmurs, gallops, or rubs. Pulses are 2+ in the bilateral dorsalis pedis, posterior tibialis, and radial areas. Respiratory: Clear to auscultation bilaterally. No wheezes, rales, or rhonchi. Good air exchange bilaterally. Abdomen: Soft, nontender, nondistended. Bowel sounds present and normoactive in all 4 quadrants. No hepatospleno-megaly. No abdominal bruits auscultated. No hepatojugular reflux. Genitourinary: No suprapubic or CVA tenderness. Skin: Clean, dry, and intact. No rash. Neuro: Cranial nerves II through XII intact. No focal deficits. Alert and oriented x3. Psychiatric: Flat affect. Minimally interactive. DIAGNOSTIC STUDIES/LAB DATA: White blood cell count 7.9, hemoglobin 13.3, MCV 79, MCH 26, RDW 16, platelet count 175. Sodium 138, potassium 3.8, chloride 106 , carbon dioxide 17, anion gap 15, BUN 17, creatinine 1.03, glucose 86, hemoglobin A1c 5.6, calcium 9.1. Bilirubin 0.3, AST 17, ALT 12, alkaline phosphatase 77. Total protein 7, albumin 4.5, globulin 2.5. Triglycerides 171, cholesterol 163, LDL cholesterol 99, HDL cholesterol 30. TSH 1.55. Urine and tox screen unremarkable. Studies: Electrocardiogram shows normal sinus rhythm, left axis deviation, no ST segment abnormalities, rate of 61, QTc of 446, type 1 AV block; no other blocks, hypertrophy, or enlargement. ASSESSMENT AND PLAN: Impression: Mr. Aguilera is a 68-year-old male with a past medical history significant for hypertension, chronic obstructive pulmonary disease, schizophrenia, depression, seizure disorder who is currently admitted to behavioral services unit for suicidal ideation. The patient was found to be hypertensive, but is now normotensive on his home medications. The patient will be monitored closely. 1. Hypertension. The patient is currently normotensive. The patient also complains of orthostatic dizziness. Orthostatic vital signs will be obtained. Consideration will be made for holding the patient's tamsulosin. The patient's blood pressure will be continued to be monitored. No further changes will be made at this time pending further blood pressure readings. The patient is not symptomatic and has no signs of end-organ damage. 2. Chronic obstructive pulmonary disease. The patient is currently in exacerbation. Continue nicotine inhaler and controller medication. 3. Depression. Management per Psychiatry. The patient still seems depressed. 4. DVT prophylaxis. The patient is currently on Xarelto for unknown reason. We will attempt ascertain what this reason is by obtaining old records from his primary care provider. 5. Seizure disorder. Continue the patient's Keppra. This may be contributing to the patient's depression and consideration should be made to transitioning him to a different medication at some point in the future. 6. Disposition per Psychiatry. TIME SPENT: Approximately 60 minutes was spent on this consultation, 30 of which was spent [id number] with the patient obtaining history and physical and discussing treatment plan. This plan was discussed with my attending, Dr. Mariola Moncada; she is in agreement. GAEL HOFF [id number]/[facility] #: [id number] MATTHIAS
[2018-10-14] MEDS ORDERED: Fluticasone-Salmeterol 250-50* DISKUS INH SCH (21:00)
[2018-10-14] MEDS: Sertraline* 50 MG TAB PO SCH (22:07)
[2018-10-15] MEDS: Mouth Piece, Nicotine* 1 EACH CARTRIDGE INH ONE ×2 (02:31→14:02)
[2018-10-15] MEDS: Tamsulosin CAP* 0.4 MG PO SCH (09:07)
[2018-10-15] MEDS: levETIRAcetam TAB* 500 MG PO SCH ×2 (09:07→20:03)
[2018-10-15] MEDS: Vitamin THERAPEUTIC TAB PO SCH (09:07)
[2018-10-15] MEDS: busPIRone TAB* 15 MG PO SCH ×2 (09:07→20:02)
[2018-10-15] MEDS: Rivaroxaban TAB(*) 20 MG TAB PO SCH (09:08)
[2018-10-15] MEDS: OLANzapine TAB* 10 MG PO SCH (09:08)
[2018-10-15] MEDS: Metoprolol Tartrate TAB* 25 MG PO SCH ×2 (09:08→20:03)
[2018-10-15] MEDS: Pantoprazole TAB * 40 MG TAB PO SCH (09:08)
[2018-10-15] MEDS: amLODIPine TAB* 5 MG PO SCH (09:09)
[2018-10-15] MEDS: traMADol TAB* 50 MG PO SCH (09:09)
[2018-10-15] MEDS: hydrALAZINE TAB* 25 MG PO SCH ×3 (09:09→20:03)
[2018-10-15] MEDS: FLUTICASONE SALMETEROL INH SCH ×2 (09:10→20:04)
--- NOTE | 2018-10-15 11:22 | PN ---
Subjective Date of Service: 10/15/18 Interval History: Patient more alert and interactive than previously. Patient has persistent dizziness on standing that has not changed. Patient denies CP, SOB, F/C, N/V, abdominal pain, diarrhea, or other pain. Family History: Unchanged from Admission Social History: Unchanged from Admission Past Medical History: Unchanged from Admission Objective Active Medications: Acetaminophen (Tylenol Tab*) 650 mg PO Q4H PRN PRN Reason: PAIN or TEMP > 101 F Last Admin: 10/13/18 23:01 Dose: 650 mg Al Hydrox/Mg Hydrox/Simethicone (Maalox Plus*) 30 ml PO Q4H PRN PRN Reason: INDIGESTION Amlodipine Besylate (Norvasc Tab*) 5 mg PO DAILY [facility] Last Admin: 10/15/18 09:09 Dose: 5 mg Buspirone HCl (Buspar Tab *) 15 mg PO BID [facility] Last Admin: 10/15/18 09:07 Dose: 15 mg Hydralazine HCl (Apresoline Tab*) 25 mg PO TID [facility] Last Admin: 10/15/18 09:09 Dose: 25 mg Levetiracetam (Keppra Tab*) 1,000 mg PO BID [facility] Last Admin: 10/15/18 09:07 Dose: 1,000 mg Metoprolol Tartrate (Lopressor Tab*) 25 mg PO BID [facility] Last Admin: 10/15/18 09:08 Dose: 25 mg Multivitamins (Theragran Tab*) 1 tab PO DAILY [facility] Last Admin: 10/15/18 09:07 Dose: 1 tab Nicotine (Nicotine Inhaler*) 10 mg INH Q2H PRN PRN Reason: CRAVING Nicotine Polacrilex (Nicotine Gum*) 2 mg PO Q2H PRN PRN Reason: CRAVING Nitroglycerin (Nitroglycerin Tab 0.4 Mg*) 0.4 mg SL Q5M PRN PRN Reason: CHEST PAIN Olanzapine (Zyprexa Tab*) 10 mg PO DAILY [facility] Last Admin: 10/15/18 09:08 Dose: 10 mg Pantoprazole Sodium (Protonix Tab*) 40 mg PO DAILY [facility] Last Admin: 10/15/18 09:08 Dose: 40 mg Rivaroxaban (Xarelto(*)) 20 mg PO DAILY [facility] Last Admin: 10/15/18 09:08 Dose: 20 mg Fluticasone/Salmeterol (Advair Diskus 250-50*) 1 puff INH RT.BID [facility] Last Admin: 10/15/18 09:10 Dose: Not Given Sertraline HCl (Zoloft*) 75 mg PO BEDTIME [facility] Last Admin: 10/14/18 22:07 Dose: 75 mg Tamsulosin HCl (Flomax Cap*) 0.4 mg PO DAILY [facility] Last Admin: 10/15/18 09:07 Dose: 0.4 mg Tramadol HCl (Ultram*) 50 mg PO DAILY [facility] Last Admin: 10/15/18 09:09 Dose: 50 mg Vital Signs - 8 hr 10/15/18 10/15/18 07:38 09:09 Temperature 98.9 F Pulse Rate 54 Respiratory 17 16 Rate Blood Pressure 144/60 (mmHg) O2 Sat by Pulse 94 Oximetry Oxygen Devices in Use Now: None Appearance: Patient is a 68yo male who appears older than stated age and is sitting in the bed in [facility]. Eyes: No Scleral Icterus, PERRLA Respiratory: Symmetrical Chest Expansion and Respiratory Effort, Clear to Auscultation Cardiovascular: NL Sounds; No Murmurs; No JVD, RRR, No Edema, - Skin: No Rash or Ulcers Neurological: Alert and Oriented x 3 Result Diagrams: 10/13/18 12:52 10/13/18 16:10 Assess/Plan/Problems-Billing Assessment: Patient is a 68yo male with a PMH for COPD, HTN, Schizophrenia, Depression, who is admitted to BSU involuntarily who is hypertensive and improving with treatment. - Patient Problems (1) HTN (hypertension) Current Visit: Yes Status: Acute Code(s): I10 - ESSENTIAL (PRIMARY) HYPERTENSION SNOMED Code(s): 92094185 Comment: - Improving on Amlodipine - Not Orthostatic - Continue Metoprolol, Amlodipine, and Hydralazine. (2) COPD (chronic obstructive pulmonary disease) Current Visit: No Status: Acute Code(s): J44.9 - CHRONIC OBSTRUCTIVE PULMONARY DISEASE, UNSPECIFIED SNOMED Code(s): 02656588 Comment: - No evidence of exacerbation. - Continue dulera. (3) Seizure disorder Current Visit: No Status: Acute Code(s): G40.909 - EPILEPSY, UNSP, NOT INTRACTABLE, WITHOUT STATUS EPILEPTICUS SNOMED Code(s): 674557823 Comment: - Continue keppra. - Consider outpatient transitioning to a different antiepileptic with positive psychiatric effects. (4) Full code status Current Visit: No Status: Acute Code(s): Z78.9 - OTHER SPECIFIED HEALTH STATUS SNOMED Code(s): 121002718 (5) DVT prophylaxis Current Visit: No Status: Acute Code(s): WFK8259 - SNOMED Code(s): 933596209 Comment: - Patient on xarelto without clear indication. Attempting to get records from PCP. Status and Disposition: -Disposition per Psychiatry, we will continue to follow along from afar. Please Feel Free to call with questions. Thank you for this consult.
[2018-10-15] MEDS: Nicotine Inhaler* 10 MG AMP INH PRN (14:02)
[2018-10-15] MEDS: Sertraline* 50 MG TAB PO SCH (20:02)
[2018-10-16] MEDS: levETIRAcetam TAB* 500 MG PO SCH ×2 (14:28→21:16)
[2018-10-16] MEDS: Vitamin THERAPEUTIC TAB PO SCH (14:28)
[2018-10-16] MEDS: OLANzapine TAB* 10 MG PO SCH (14:28)
[2018-10-16] MEDS: Rivaroxaban TAB(*) 20 MG TAB PO SCH (14:28)
[2018-10-16] MEDS: traMADol TAB* 50 MG PO SCH (14:29)
[2018-10-16] MEDS: busPIRone TAB* 15 MG PO SCH ×2 (14:29→21:16)
[2018-10-16] MEDS: hydrALAZINE TAB* 25 MG PO SCH ×3 (14:29→21:16)
[2018-10-16] MEDS: amLODIPine TAB* 5 MG PO SCH (14:29)
[2018-10-16] MEDS: Metoprolol Tartrate TAB* 25 MG PO SCH ×2 (14:29→21:16)
[2018-10-16] MEDS: Pantoprazole TAB * 40 MG TAB PO SCH (14:30)
[2018-10-16] MEDS: Tamsulosin CAP* 0.4 MG PO SCH (14:30)
[2018-10-16] MEDS: FLUTICASONE SALMETEROL INH SCH ×2 (14:32→21:15)
[2018-10-16] MEDS ORDERED: Mouth Piece, Nicotine* 1 EACH CARTRIDGE ONE (14:55)
[2018-10-16] MEDS: Mouth Piece, Nicotine* 1 EACH CARTRIDGE INH ONE (14:55)
[2018-10-16] MEDS: Nicotine Inhaler* 10 MG AMP INH PRN (14:56)
--- NOTE | 2018-10-16 18:16 | PN ---
Subjective - Subjective Date of Service: 10/15/18 Service Type: [id number] Hosp care 15 min low complexity Subjective: Franca stays to self mostly laying in bed, comes out for meals. Says he is doing great and no more suicidal. Also denies hallucinations or delusions. Meds have helped he reports. Objective - Appearance Appearance: Thin Framed Dysmorphic Features: No Hygiene: Mal-odorous Grooming: Disheveled - Behavior Psychomotor Activities: Abnormal-Decreased Exhibits Abnormal Movement: No - Attitude and Relatedness Attitude and Relatedness: Appropriate Eye Contact: Fair - Speech Quality: Unpressured Latencies: Normal Quantity: Appropriate - Mood Patient's Decription of Mood: "Fine" - Affect Observed Affect: Non-labile Affect Consistent with: Euthymia - Thought Process Patient's Thought Process: Coherent, Goal Directed Thought Content: No Passive Wish, No Suicidal Planning, No Homicidal Ideation, No Paranoid Ideation - Sensorium Experiencing Hallucinations: No, Sensorium is Clear Type of Hallucinations: Visual: No, Auditory: No, Command: No - Level of Consciousness Level of Consciousness: Alert Orientation: Yes Intact, Yes Orientated to Time, Yes Orientated to Place, Yes Orientated to Person - Impulse Control Impulse Control: Intact - Insight and Judgement Insight and Judgement: Fair - Group Participation Particating in Group Activities: No - Medication Management Medication Management Adherence: Yes Assessment - Assessment Merits Inpatient Hospitalization: Consolidate Improvements, Pending Safe DC Plan Clinical Impression: Franca appears to have improved significantly. Plan - Plan Treatment Plan: Name: FRANCA BERUMEN Birthdate: 1950 [id number] Continued Medication Management: Continue Outpt Medication Medications: Current Medications Acetaminophen (Tylenol Tab*) 650 mg PO Q4H PRN PRN Reason: PAIN or TEMP > 101 F Last Admin: 10/13/18 23:01 Dose: 650 mg Al Hydrox/Mg Hydrox/Simethicone (Maalox Plus*) 30 ml PO Q4H PRN PRN Reason: INDIGESTION Amlodipine Besylate (Norvasc Tab*) 5 mg PO DAILY [facility] Last Admin: 10/16/18 14:29 Dose: 5 mg Buspirone HCl (Buspar Tab *) 15 mg PO BID [facility] Last Admin: 10/16/18 14:29 Dose: 15 mg Hydralazine HCl (Apresoline Tab*) 25 mg PO TID [facility] Last Admin: 10/16/18 14:29 Dose: 25 mg Levetiracetam (Keppra Tab*) 1,000 mg PO BID [facility] Last Admin: 10/16/18 14:28 Dose: 1,000 mg Metoprolol Tartrate (Lopressor Tab*) 25 mg PO BID [facility] Last Admin: 10/16/18 14:29 Dose: 25 mg Multivitamins (Theragran Tab*) 1 tab PO DAILY [facility] Last Admin: 10/16/18 14:28 Dose: 1 tab Nicotine (Nicotine Inhaler*) 10 mg INH Q2H PRN PRN Reason: CRAVING Last Admin: 10/16/18 14:56 Dose: 10 mg Nicotine Polacrilex (Nicotine Gum*) 2 mg PO Q2H PRN PRN Reason: CRAVING Nitroglycerin (Nitroglycerin Tab 0.4 Mg*) 0.4 mg SL Q5M PRN PRN Reason: CHEST PAIN Olanzapine (Zyprexa Tab*) 10 mg PO DAILY [facility] Last Admin: 10/16/18 14:28 Dose: 10 mg Pantoprazole Sodium (Protonix Tab*) 40 mg PO DAILY [facility] Last Admin: 10/16/18 14:30 Dose: 40 mg Rivaroxaban (Xarelto(*)) 20 mg PO DAILY [facility] Last Admin: 10/16/18 14:28 Dose: 20 mg Fluticasone/Salmeterol (Advair Diskus 250-50*) 1 puff INH RT.BID [facility] Last Admin: 10/16/18 14:32 Dose: Not Given Sertraline HCl (Zoloft*) 75 mg PO BEDTIME [facility] Last Admin: 10/15/18 20:02 Dose: 75 mg Tamsulosin HCl (Flomax Cap*) 0.4 mg PO DAILY [facility] Last Admin: 10/16/18 14:30 Dose: 0.4 mg Tramadol HCl (Ultram*) 50 mg PO DAILY [facility] Last Admin: 10/16/18 14:29 Dose: 50 mg - Discharge Plan Discharge Plan: Outpatient Follow Up Outpatient Program: [facility]
[2018-10-16] MEDS: Sertraline* 50 MG TAB PO SCH (21:17)
[2018-10-17] MEDS: FLUTICASONE SALMETEROL INH SCH ×2 (09:42→18:46)
[2018-10-17] MEDS: Rivaroxaban TAB(*) 20 MG TAB PO SCH (10:00)
[2018-10-17] MEDS: traMADol TAB* 50 MG PO SCH (10:00)
[2018-10-17] MEDS: Vitamin THERAPEUTIC TAB PO SCH (10:00)
[2018-10-17] MEDS: Pantoprazole TAB * 40 MG TAB PO SCH (10:01)
[2018-10-17] MEDS: OLANzapine TAB* 10 MG PO SCH (10:01)
[2018-10-17] MEDS: Metoprolol Tartrate TAB* 25 MG PO SCH ×2 (10:01→20:07)
[2018-10-17] MEDS: levETIRAcetam TAB* 500 MG PO SCH ×2 (10:01→20:06)
[2018-10-17] MEDS: busPIRone TAB* 15 MG PO SCH ×2 (10:01→20:05)
[2018-10-17] MEDS: amLODIPine TAB* 5 MG PO SCH (10:01)
[2018-10-17] MEDS: hydrALAZINE TAB* 25 MG PO SCH ×3 (10:02→20:06)
[2018-10-17] MEDS: Tamsulosin CAP* 0.4 MG PO SCH (10:02)
--- NOTE | 2018-10-17 13:19 | PN ---
Subjective - Subjective Date of Service: 10/17/18 Service Type: [id number] Hosp care 35 min high complexity Subjective: Nursing Report: Patient was visible on unit, no chemical restraints or PRNs. Slept overnight without incident. NOT Attending group activities. CC: "[place] not [facility] [place]" Patient reported that he is unhappy with his current living situation. He reported he would be happy if he moved somewhere else. He reports sleeping most of the day and over the weekend. Patient was seen and evaluated by this provider. The patient reported he feels safe on the unit. He reported having an adequate appetite and sleep. The patient is not attending and participating in day groups. Per nursing no behavioral issues or overnight events reported. Patient reported that he is tolerating medications without side effects. He reported that he still felt suicidal. He denied homicidal ideation intent or plan. He denied auditory and or visual hallucinations. Objective - Appearance Appearance: Thin Framed Dysmorphic Features: No Hygiene: Mal-odorous Grooming: Disheveled - Behavior Psychomotor Activities: Abnormal-Decreased Exhibits Abnormal Movement: No - Attitude and Relatedness Attitude and Relatedness: Cooperative Eye Contact: Fair - Speech Quality: Unpressured Latencies: Normal Quantity: Appropriate - Mood Patient's Decription of Mood: "Fine" - Thought Process Thought Content: Yes Passive Wish, No Suicidal Planning, No Paranoid Ideation - Sensorium Experiencing Hallucinations: No, Sensorium is Clear Type of Hallucinations: Visual: No, Auditory: No, Command: No - Level of Consciousness Level of Consciousness: Alert Orientation: Yes Intact, Yes Orientated to Time, Yes Orientated to Place, Yes Orientated to Person - Impulse Control Impulse Control: Tenuous - Insight and Judgement Insight and Judgement: Fair - Group Participation Particating in Group Activities: No - Medication Management Medication Management Adherence: Yes Assessment - Assessment Merits Inpatient Hospitalization: For Immediate Safety Clinical Impression: 68 year old white male with a history of depression admitted for suicidal ideation, doesnt like living at his current assisted living facility. Plan - Plan Treatment Plan: Name: FRANCA BERUMEN Birthdate: 1950 [id number] # Patient continues to require psychiatric inpatient hospitalization to assure safety. # Collaboration with Social Work to work toward discharge planning. #Fall precautions #Continue Zoloft to 75mg at nighttime. #Medicine consult completed #Goals before discharge include: Increase mobility. Decrease depression and eradicate suicidal thoughts PT consult to increase mobility Vital Signs Temp Pulse Resp BP Pulse Ox 98.6 F 73 16 121/88 95 10/17/18 09:50 10/17/18 09:50 10/17/18 12:00 10/17/18 09:50 10/17/18 09:50 Vital Signs 10/16/18 10/16/18 10/16/18 14:26 14:29 14:51 Temperature Pulse Rate 80 Respiratory 16 16 16 Rate Blood Pressure 138/83 (mmHg) O2 Sat by Pulse 93 Oximetry 10/16/18 10/16/18 10/17/18 17:49 21:16 09:25 Temperature Pulse Rate 82 Respiratory 18 16 Rate Blood Pressure 141/55 (mmHg) O2 Sat by Pulse 95 Oximetry 10/17/18 10/17/18 10/17/18 09:50 10:00 12:00 Temperature 98.6 F Pulse Rate 73 Respiratory 16 16 16 Rate Blood Pressure 121/88 (mmHg) O2 Sat by Pulse 95 Oximetry Acetaminophen (Tylenol Tab*) 650 mg PO Q4H PRN PRN Reason: PAIN or TEMP > 101 F Last Admin: 10/13/18 23:01 Dose: 650 mg Al Hydrox/Mg Hydrox/Simethicone (Maalox Plus*) 30 ml PO Q4H PRN PRN Reason: INDIGESTION Amlodipine Besylate (Norvasc Tab*) 5 mg PO DAILY [facility] Last Admin: 10/17/18 10:01 Dose: 5 mg Buspirone HCl (Buspar Tab *) 15 mg PO BID [facility] Last Admin: 10/17/18 10:01 Dose: 15 mg Hydralazine HCl (Apresoline Tab*) 25 mg PO TID [facility] Last Admin: 10/17/18 10:02 Dose: 25 mg Levetiracetam (Keppra Tab*) 1,000 mg PO BID [facility] Last Admin: 10/17/18 10:01 Dose: 1,000 mg Metoprolol Tartrate (Lopressor Tab*) 25 mg PO BID [facility] Last Admin: 10/17/18 10:01 Dose: 25 mg Multivitamins (Theragran Tab*) 1 tab PO DAILY [facility] Last Admin: 10/17/18 10:00 Dose: 1 tab Nicotine (Nicotine Inhaler*) 10 mg INH Q2H PRN PRN Reason: CRAVING Last Admin: 10/16/18 14:56 Dose: 10 mg Nicotine Polacrilex (Nicotine Gum*) 2 mg PO Q2H PRN PRN Reason: CRAVING Nitroglycerin (Nitroglycerin Tab 0.4 Mg*) 0.4 mg SL Q5M PRN PRN Reason: CHEST PAIN Olanzapine (Zyprexa Tab*) 10 mg PO DAILY [facility] Last Admin: 10/17/18 10:01 Dose: 10 mg Pantoprazole Sodium (Protonix Tab*) 40 mg PO DAILY [facility] Last Admin: 10/17/18 10:01 Dose: 40 mg Rivaroxaban (Xarelto(*)) 20 mg PO DAILY [facility] Last Admin: 10/17/18 10:00 Dose: 20 mg Fluticasone/Salmeterol (Advair Diskus 250-50*) 1 puff INH RT.BID [facility] Last Admin: 10/17/18 09:42 Dose: 1 puff Sertraline HCl (Zoloft*) 75 mg PO BEDTIME [facility] Last Admin: 10/16/18 21:17 Dose: 75 mg Tamsulosin HCl (Flomax Cap*) 0.4 mg PO DAILY [facility] Last Admin: 10/17/18 10:02 Dose: 0.4 mg Tramadol HCl (Ultram*) 50 mg PO DAILY [facility] Last Admin: 10/17/18 10:00 Dose: 50 mg Continued Medication Management: Continue Outpt Medication Medications: Current Medications Acetaminophen (Tylenol Tab*) 650 mg PO Q4H PRN PRN Reason: PAIN or TEMP > 101 F Last Admin: 10/13/18 23:01 Dose: 650 mg Al Hydrox/Mg Hydrox/Simethicone (Maalox Plus*) 30 ml PO Q4H PRN PRN Reason: INDIGESTION Amlodipine Besylate (Norvasc Tab*) 5 mg PO DAILY [facility] Last Admin: 10/17/18 10:01 Dose: 5 mg Buspirone HCl (Buspar Tab *) 15 mg PO BID [facility] Last Admin: 10/17/18 10:01 Dose: 15 mg Hydralazine HCl (Apresoline Tab*) 25 mg PO TID [facility] Last Admin: 10/17/18 10:02 Dose: 25 mg Levetiracetam (Keppra Tab*) 1,000 mg PO BID [facility] Last Admin: 10/17/18 10:01 Dose: 1,000 mg Metoprolol Tartrate (Lopressor Tab*) 25 mg PO BID [facility] Last Admin: 10/17/18 10:01 Dose: 25 mg Multivitamins (Theragran Tab*) 1 tab PO DAILY [facility] Last Admin: 10/17/18 10:00 Dose: 1 tab Nicotine (Nicotine Inhaler*) 10 mg INH Q2H PRN PRN Reason: CRAVING Last Admin: 10/16/18 14:56 Dose: 10 mg Nicotine Polacrilex (Nicotine Gum*) 2 mg PO Q2H PRN PRN Reason: CRAVING Nitroglycerin (Nitroglycerin Tab 0.4 Mg*) 0.4 mg SL Q5M PRN PRN Reason: CHEST PAIN Olanzapine (Zyprexa Tab*) 10 mg PO DAILY [facility] Last Admin: 10/17/18 10:01 Dose: 10 mg Pantoprazole Sodium (Protonix Tab*) 40 mg PO DAILY [facility] Last Admin: 10/17/18 10:01 Dose: 40 mg Rivaroxaban (Xarelto(*)) 20 mg PO DAILY [facility] Last Admin: 10/17/18 10:00 Dose: 20 mg Fluticasone/Salmeterol (Advair Diskus 250-50*) 1 puff INH RT.BID [facility] Last Admin: 10/17/18 09:42 Dose: 1 puff Sertraline HCl (Zoloft*) 75 mg PO BEDTIME [facility] Last Admin: 10/16/18 21:17 Dose: 75 mg Tamsulosin HCl (Flomax Cap*) 0.4 mg PO DAILY [facility] Last Admin: 10/17/18 10:02 Dose: 0.4 mg Tramadol HCl (Ultram*) 50 mg PO DAILY [facility] Last Admin: 10/17/18 10:00 Dose: 50 mg - Discharge Plan Discharge Plan: Inpatient Hospitalization
[2018-10-17] MEDS: Nicotine PATCH 14 MG/24 HR* PATCH TRANSDERM SCH (14:42)
[2018-10-17] MEDS: Sertraline* 50 MG TAB PO SCH (20:07)
[2018-10-17] MEDS: Nicotine Patch Removal NOTE PATCH OFF SCH (20:10)
[2018-10-18] MEDS: Nicotine PATCH 14 MG/24 HR* PATCH TRANSDERM SCH (08:12)
[2018-10-18] MEDS: FLUTICASONE SALMETEROL INH SCH ×2 (08:12→19:49)
[2018-10-18] MEDS: Rivaroxaban TAB(*) 20 MG TAB PO SCH (08:13)
[2018-10-18] MEDS: Pantoprazole TAB * 40 MG TAB PO SCH (08:13)
[2018-10-18] MEDS: Vitamin THERAPEUTIC TAB PO SCH (08:13)
[2018-10-18] MEDS: amLODIPine TAB* 5 MG PO SCH (08:13)
[2018-10-18] MEDS: OLANzapine TAB* 10 MG PO SCH (08:13)
[2018-10-18] MEDS: Tamsulosin CAP* 0.4 MG PO SCH (08:13)
[2018-10-18] MEDS: levETIRAcetam TAB* 500 MG PO SCH ×2 (08:13→19:49)
[2018-10-18] MEDS: busPIRone TAB* 15 MG PO SCH ×2 (08:13→19:49)
[2018-10-18] MEDS: hydrALAZINE TAB* 25 MG PO SCH ×3 (08:13→19:49)
[2018-10-18] MEDS: Metoprolol Tartrate TAB* 25 MG PO SCH ×2 (08:14→19:49)
[2018-10-18] MEDS: traMADol TAB* 50 MG PO SCH (08:14)
--- NOTE | 2018-10-18 09:53 | PN ---
Subjective - Subjective Date of Service: 10/18/18 Service Type: 80657 Hosp care 35 min high complexity Subjective: Nursing Report: Patient was visible on unit, no chemical restraints or PRNs. Slept overnight without incident. He is not attending group activities. CC: " Patient was seen and evaluated in his room . The patient reported he feels safe on the unit. He reported having an adequate appetite and did not get very good sleep overnight. He reported that [place] Per nursing no behavioral issues or overnight events reported. Patient reported that he is tolerating medications without side effects. He denied suicidal ideation, intent or plan. He denied homicidal ideation intent or plan. He denied auditory and or visual hallucinations. Patient reported that he attended AA meeting yesterday evening. He said that he prefers to take zoloft during the daytime so it doesnt interfere with his sleep. He reported that he has been getting assistance with walking and mobility. Objective - Appearance Appearance: Thin Framed Dysmorphic Features: No Hygiene: Mal-odorous Grooming: Disheveled - Behavior Psychomotor Activities: Abnormal-Decreased Exhibits Abnormal Movement: No - Attitude and Relatedness Attitude and Relatedness: Cooperative Eye Contact: Fair - Speech Quality: Unpressured Latencies: Long Quantity: Appropriate - Mood Patient's Decription of Mood: "Okay" - Affect Observed Affect: Constricted Affect Consistent with: Euthymia - Thought Process Patient's Thought Process: Goal Directed Thought Content: No Passive Wish, No Suicidal Planning, No Homicidal Ideation, No Paranoid Ideation - Sensorium Experiencing Hallucinations: No, Sensorium is Clear Type of Hallucinations: Visual: No, Auditory: No, Command: No - Level of Consciousness Level of Consciousness: Alert Orientation: Yes Intact, Yes Orientated to Time, Yes Orientated to Place, Yes Orientated to Person - Impulse Control Impulse Control: Tenuous - Insight and Judgement Insight and Judgement: Fair - Group Participation Particating in Group Activities: No - Medication Management Medication Management Adherence: Yes Assessment - Assessment Clinical Impression: 68 year old white male with a history of depression admitted for suicidal ideation, doesnt like living at his current assisted living facility. Plan - Plan Treatment Plan: Name: FRANCA BERUMEN Birthdate: 1950 [id number] # Patient continues to require psychiatric inpatient hospitalization to assure safety. # Collaboration with Social Work to work toward discharge planning. #Fall precautions # Zoloft to 75mg PO daily #Medicine consult completed #Goals before discharge include: Increase mobility. Decrease depression and eradicate suicidal thoughts PT consult to increase mobility # Plan to discharge tomorrow. Acetaminophen (Tylenol Tab*) 650 mg PO Q4H PRN PRN Reason: PAIN or TEMP > 101 F Last Admin: 10/13/18 23:01 Dose: 650 mg Al Hydrox/Mg Hydrox/Simethicone (Maalox Plus*) 30 ml PO Q4H PRN PRN Reason: INDIGESTION Amlodipine Besylate (Norvasc Tab*) 5 mg PO DAILY [facility] Last Admin: 10/18/18 08:13 Dose: 5 mg Buspirone HCl (Buspar Tab *) 15 mg PO BID [facility] Last Admin: 10/18/18 08:13 Dose: 15 mg Hydralazine HCl (Apresoline Tab*) 25 mg PO TID [facility] Last Admin: 10/18/18 08:13 Dose: 25 mg Levetiracetam (Keppra Tab*) 1,000 mg PO BID [facility] Last Admin: 10/18/18 08:13 Dose: 1,000 mg Metoprolol Tartrate (Lopressor Tab*) 25 mg PO BID [facility] Last Admin: 10/18/18 08:14 Dose: 25 mg Multivitamins (Theragran Tab*) 1 tab PO DAILY [facility] Last Admin: 10/18/18 08:13 Dose: 1 tab Nicotine (Nicotine Inhaler*) 10 mg INH Q2H PRN PRN Reason: CRAVING Last Admin: 10/16/18 14:56 Dose: 10 mg Nicotine (Nicotine Patch 14 Mg/24 Hr*) 1 patch TRANSDERM DAILY [facility] Last Admin: 10/18/18 08:12 Dose: 1 patch Nicotine Polacrilex (Nicotine Gum*) 2 mg PO Q2H PRN PRN Reason: CRAVING Nitroglycerin (Nitroglycerin Tab 0.4 Mg*) 0.4 mg SL Q5M PRN PRN Reason: CHEST PAIN Olanzapine (Zyprexa Tab*) 10 mg PO DAILY [facility] Last Admin: 10/18/18 08:13 Dose: 10 mg Pantoprazole Sodium (Protonix Tab*) 40 mg PO DAILY [facility] Last Admin: 10/18/18 08:13 Dose: 40 mg Pharmacy Profile Note (Nicotine Patch Removal Note*) 1 note PATCH OFF 2100 [facility] Last Admin: 10/17/18 20:10 Dose: 1 note Rivaroxaban (Xarelto(*)) 20 mg PO DAILY [facility] Last Admin: 10/18/18 08:13 Dose: 20 mg Fluticasone/Salmeterol (Advair Diskus 250-50*) 1 puff INH RT.BID [facility] Last Admin: 10/18/18 08:12 Dose: 1 puff Sertraline HCl (Zoloft*) 75 mg PO [address] [facility] Tamsulosin HCl (Flomax Cap*) 0.4 mg PO DAILY [facility] Last Admin: 10/18/18 08:13 Dose: 0.4 mg Tramadol HCl (Ultram*) 50 mg PO DAILY [facility] Last Admin: 10/18/18 08:14 Dose: 50 mg Vital Signs Temp Pulse Resp BP Pulse Ox 98.9 F 75 16 109/41 91 10/18/18 07:34 10/18/18 07:34 10/18/18 09:02 10/18/18 07:34 10/18/18 07:34 Laboratory Results WBC 7.9 10^3/ul (3.5-10.8) 10/13/18 12:52 RBC 5.22 10^6/ul (4.00-5.40) 10/13/18 12:52 Hgb 13.3 g/dl (14.0-18.0) L 10/13/18 12:52 Hct 42 % (42-52) 10/13/18 12:52 MCV 79 fL (80-94) L 10/13/18 12:52 MCH 26 pg (27-31) L 10/13/18 12:52 MCHC 32 g/dl (31-36) 10/13/18 12:52 RDW 16 % (10.5-15) H 10/13/18 12:52 Plt Count 175 10^3/ul (150-450) 10/13/18 12:52 MPV 9.2 fL (7.4-10.4) 10/13/18 12:52 Neut % (Auto) 72.1 % 10/13/18 12:52 Lymph % (Auto) 16.9 % 10/13/18 12:52 [place] % (Auto) 10.2 % 10/13/18 12:52 Eos % (Auto) 0.6 % 10/13/18 12:52 Baso % (Auto) 0.2 % 10/13/18 12:52 Absolute Neuts (auto) 5.7 10^3/ul (1.5-7.7) 10/13/18 12:52 Absolute Lymphs (auto) 1.3 10^3/ul (1.0-4.8) 10/13/18 12:52 Absolute Monos (auto) 0.8 10^3/ul (0-0.8) 10/13/18 12:52 Absolute Eos (auto) 0 10^3/ul (0-0.6) 10/13/18 12:52 Absolute Basos (auto) 0 10^3/ul (0-0.2) 10/13/18 12:52 Absolute Nucleated RBC 0 10^3/ul 10/13/18 12:52 Nucleated RBC % 0 10/13/18 12:52 Sodium 138 mmol/L (135-145) 10/13/18 12:52 Potassium 3.8 mmol/L (3.5-5.0) 10/13/18 16:10 Chloride 106 mmol/L (101-111) 10/13/18 12:52 Carbon Dioxide 17 mmol/L (22-32) L 10/13/18 12:52 Anion Gap 15 mmol/L (2-11) H 10/13/18 12:52 BUN 7 mg/dL (6-24) 10/13/18 12:52 Creatinine 1.03 mg/dL (0.67-1.17) 10/13/18 12:52 Est GFR ( Amer) 87.4 (>60) 10/13/18 12:52 Est GFR (Non-Af Amer) 72.3 (>60) 10/13/18 12:52 BUN/Creatinine Ratio 6.8 (8-20) L 10/13/18 12:52 Glucose 86 mg/dL (70-100) 10/13/18 12:52 Hemoglobin A1c 5.6 % (4.0-5.6) 10/14/18 06:17 Calcium 9.1 mg/dL (8.6-10.3) 10/13/18 12:52 Total Bilirubin 0.30 mg/dL (0.2-1.0) 10/13/18 12:52 AST 17 U/L (13-39) 10/13/18 16:10 ALT 12 U/L (7-52) 10/13/18 12:52 Alkaline Phosphatase 77 U/L (34-104) 10/13/18 12:52 Total Protein 7.0 g/dL (6.4-8.9) 10/13/18 12:52 Albumin 4.5 g/dL (3.2-5.2) 10/13/18 12:52 Globulin 2.5 g/dL (2-4) 10/13/18 12:52 Albumin/Globulin Ratio 1.8 (1-3) 10/13/18 12:52 Triglycerides 171 mg/dL 10/14/18 06:17 Cholesterol 163 mg/dL 10/14/18 06:17 LDL Cholesterol 99 mg/dL 10/14/18 06:17 HDL Cholesterol 30.2 mg/dL 10/14/18 06:17 TSH 1.55 mcIU/mL (0.34-5.60) 10/13/18 16:10 Urine Color Yellow 10/13/18 17:40 Urine Appearance Clear 10/13/18 17:40 Urine pH 6.0 (5-9) 10/13/18 17:40 Ur Specific [place] 1.012 (1.010-1.030) 10/13/18 17:40 Urine Protein Negative (Negative) 10/13/18 17:40 Urine Ketones Negative (Negative) 10/13/18 17:40 Urine Blood Negative (Negative) 10/13/18 17:40 Urine Nitrate Negative (Negative) 10/13/18 17:40 Urine Bilirubin Negative (Negative) 10/13/18 17:40 Urine Urobilinogen Negative (Negative) 10/13/18 17:40 Ur Leukocyte Esterase Negative (Negative) 10/13/18 17:40 Urine Glucose Negative (Negative) 10/13/18 17:40 Salicylates < 2.50 mg/dL (<30) 10/13/18 12:52 Urine Opiates Screen None detected (None Detect) 10/13/18 17:40 Acetaminophen < 15 mcg/mL 10/13/18 12:52 Ur Barbiturates Screen None detected (None Detect) 10/13/18 17:40 Ur Phencyclidine Scrn None detected (None Detect) 10/13/18 17:40 Ur Amphetamines Screen None detected (None Detect) 10/13/18 17:40 U Benzodiazepines Scrn None detected (None Detect) 10/13/18 17:40 Urine Cocaine Screen None detected (None Detect) 10/13/18 17:40 U Cannabinoids Screen None detected (None Detect) 10/13/18 17:40 Serum Alcohol < 10 mg/dL (<10) 10/13/18 12:52 Continued Medication Management: Continue Outpt Medication Medications: Current Medications Acetaminophen (Tylenol Tab*) 650 mg PO Q4H PRN PRN Reason: PAIN or TEMP > 101 F Last Admin: 10/13/18 23:01 Dose: 650 mg Al Hydrox/Mg Hydrox/Simethicone (Maalox Plus*) 30 ml PO Q4H PRN PRN Reason: INDIGESTION Amlodipine Besylate (Norvasc Tab*) 5 mg PO DAILY [facility] Last Admin: 10/18/18 08:13 Dose: 5 mg Buspirone HCl (Buspar Tab *) 15 mg PO BID [facility] Last Admin: 10/18/18 08:13 Dose: 15 mg Hydralazine HCl (Apresoline Tab*) 25 mg PO TID [facility] Last Admin: 10/18/18 08:13 Dose: 25 mg Levetiracetam (Keppra Tab*) 1,000 mg PO BID [facility] Last Admin: 10/18/18 08:13 Dose: 1,000 mg Metoprolol Tartrate (Lopressor Tab*) 25 mg PO BID [facility] Last Admin: 10/18/18 08:14 Dose: 25 mg Multivitamins (Theragran Tab*) 1 tab PO DAILY [facility] Last Admin: 10/18/18 08:13 Dose: 1 tab Nicotine (Nicotine Inhaler*) 10 mg INH Q2H PRN PRN Reason: CRAVING Last Admin: 10/16/18 14:56 Dose: 10 mg Nicotine (Nicotine Patch 14 Mg/24 Hr*) 1 patch TRANSDERM DAILY [facility] Last Admin: 10/18/18 08:12 Dose: 1 patch Nicotine Polacrilex (Nicotine Gum*) 2 mg PO Q2H PRN PRN Reason: CRAVING Nitroglycerin (Nitroglycerin Tab 0.4 Mg*) 0.4 mg SL Q5M PRN PRN Reason: CHEST PAIN Olanzapine (Zyprexa Tab*) 10 mg PO DAILY [facility] Last Admin: 10/18/18 08:13 Dose: 10 mg Pantoprazole Sodium (Protonix Tab*) 40 mg PO DAILY [facility] Last Admin: 10/18/18 08:13 Dose: 40 mg Pharmacy Profile Note (Nicotine Patch Removal Note*) 1 note PATCH OFF 2100 [facility] Last Admin: 10/17/18 20:10 Dose: 1 note Rivaroxaban (Xarelto(*)) 20 mg PO DAILY [facility] Last Admin: 10/18/18 08:13 Dose: 20 mg Fluticasone/Salmeterol (Advair Diskus 250-50*) 1 puff INH RT.BID [facility] Last Admin: 10/18/18 08:12 Dose: 1 puff Sertraline HCl (Zoloft*) 75 mg PO 1100 [facility] Tamsulosin HCl (Flomax Cap*) 0.4 mg PO DAILY [facility] Last Admin: 10/18/18 08:13 Dose: 0.4 mg Tramadol HCl (Ultram*) 50 mg PO DAILY [facility] Last Admin: 10/18/18 08:14 Dose: 50 mg - Discharge Plan Discharge Plan: Inpatient Hospitalization
[2018-10-18] MEDS: Sertraline* 25 MG TAB PO SCH (11:00)
[2018-10-18] MEDS: Nicotine Patch Removal NOTE PATCH OFF SCH (19:51)
--- NOTE | 2018-10-19 10:39 | DS ---
Subjective - Subjective Service Types: [id number] [facility] Day Mgmt complex over 30 min Discharge Date: 10/19/18 Subjective: CC" I am ready to go" Patient was seen and evaluated in his room today. He was future orientated about getting cataract surgery. He did not have suicidal ideation intent or plan. He has been compliant with medications. The patient denied auditory and/ or visual hallucinations. No behavioral issues overnight. Slept overnight. Justification for admission: Immediate Safety. CC " I thought about cutting my wrist" The patient was brought to [facility] by ambulance after he stated he was going to the bathroom and cut his wrist with a razor blade. He denied access to firearms or stockpiles of medications. He reported adequate sleep and appetite. He reports that he has been staying at the [facility] and doesnt get to do the things he wants to do and that makes him feel depressed . He did not note what things he would like to do. He reported taking his medications The patient denied homicidal ideation intent or plan. The patient denied auditory and/ or visual hallucinations. MDD He reported feeling depressed for most of the time, lasting more than 2 weeks. He reported feelings of hopelessness and unintentional weight loss. Denied interruption of sleep or feeling tired throughout the day. He reported loss of energy or lack of motivation to complete tasks. He denied overwhelming feelings of guilt, or decreased concentration. Bipolar Denied symptoms of jocelynn such as having many ideas at once. Denied increased talkativeness where no one can interrupt. Denied feeling irritable most of the time while having an persistent abundance of energy most of the day without the use of energy drinks, stimulants, or recreational drug use. Denied an increase in intensity in goal directed activities. Denied having the decreased need to sleep for days , having prolonged elevated heighted mood , or feeling on top of the world. Denied impulsive risky sexual encounters. Denied spending money recklessly , going on spending sprees wiping out savings. Denied impulsively traveling out of town or country, having super fragoso, and unrealistic wealth or fame. Anxiety Denied having symptoms of anxiety such as having times where heart feels that it is beating out of chest , sweaty palms, or shallow breathing. Denied having uncomfortable or intrusive thoughts. Denied feeling restless, high strung, or worrying too much most of the time. Psychosis Does not endorse hearing things that other people do not hear or seeing things other people do not see. Denied feeling that TV is making references. Denied feeling that people are spying , following , or reading their thoughts. Phobias: Patient denied having excessive fear of a particular thing or situation. Eating disorders: Patient denied having excessive eating habits or feelings of guilt after eating. Denied repeated episodes of self induced vomiting after eating. PTSD Denied flashbacks, nightmares and avoidance of a prior traumatic event. PAST PSYCHIATRIC HISTORY: Prior Diagnosis : Major Depressive Disorder History of past Psychiatric Hospitalizations: 1 prior psychiatric admission in 1978 for cutting his wrist History of past suicide/homicide attempts : 1 past suicide attempt in 1978. Denied past homicidal incidents. Outpatient follow-up: Unable to recall the name of his doctor Medications: Past trials of medications include zoloft 50mg and buspar 15mg BID, zyprexa 10mg daily FAMILY HISTORY: - Suicide: Denied family history of suicide. - Mental illness: Denied history mental health in the family. - Substance abuse: Denied substance abuse among family members. SUBSTANCE ABUSE HISTORY: Denied using alcohol, heroin and cocaine other illicit substances. Denied abusing pills not prescribed . Denied past Substance abuse treatment. - Tobacco: 1/2 Pack per day SOCIAL HISTORY: - Childhood: Born and raised in [facility]. Raised by both parents who are both from unknown causes. 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 He is currently retired and living at the [facility]. He has no supportive contacts of family or friends. PAST MEDICAL HISTORY: Hypertension - Allergies: Penicillin and Thorazine Physical Exam: Please see ED note Mental Status Exam on Admission APPEARANCE : 68 year old white male who appears much older than stated age. He is laying in bed with long cadet and appears disheveled. BEHAVIOR: Cooperative , calm EYE CONTACT: Fair PSYCHOMOTOR ACTIVITY: psychomotor retardation. MOVEMENTS: No abnormal movements observed. SPEECH : Normal rate, rhythm, volume and tone. MOOD : " Okay " AFFECT : Constricted THOUGHT PROCESS: formulated and organized in a logical, linear goal directed manner. THOUGHT CONTENT: no delusions, preoccupations, obsessions, phobias or preoccupations. PERCEPTION: No current auditory or visual hallucinations. Doesnt appear to be responding to internal cues. No evidence of depersonalization , de-realization, or illusions SUICIDALITY Suicidal with plan to cut wrist HOMICIDALITY Denied homicidal ideation, intent or plan. ORIENTATION: Oriented to self, location, and time. Insight/judgment: Poor insight and judgment Diagnosis on Admission: Major depressive disorder. Nicotine use disorder Assessment: 68 year old with history of Major depressive disorder with plan to cut wrist with razor came to the hospital and was admitted to the [facility] at [facility]. Diagnosis on Discharge:Schizophrenia, Nicotine use disorder, Hypertension, Seizure Disorder, COPD, Coronary Artery Disease. Condition at the time of discharge: At the time of discharge patient showed improvement of sleep and appetite. The patient was not a danger to self or others. The patient denied suicidal ideations , intent or plans. The patient denied homicidal targets, ideations, intents or plans. The patient took medication as prescribed. The patient denied side effects of medication and objective signs of side effects were not evident. Therapy Resources were offered to the patient. Patient was given a supply of prescriptions at the time of discharge. The patient plans to attend follow up care with the follow up arrangements that were discussed and put in place. Patient was asked to keep appointments as scheduled, take medication as prescribed, have routine follow up care with their primary care physician and refrain from any use of alcohol or drugs. Objective - Appearance Appearance: Thin Framed Dysmorphic Features: No Hygiene: Normal Grooming: Disheveled - Behavior Psychomotor Activities: Abnormal-Decreased Exhibits Abnormal Movement: No - Attitude and Relatedness Attitude and Relatedness: Cooperative Eye Contact: Fair - Speech Quality: Unpressured Latencies: Normal Quantity: Appropriate - Mood Patient's Decription of Mood: "Okay" - Affect Observed Affect: Constricted Affect Consistent with: Euthymia - Thought Process Patient's Thought Process: Goal Directed Thought Content: No Passive Wish, No Suicidal Planning, No Homicidal Ideation, No Paranoid Ideation - Sensorium Experiencing Hallucinations: No, Sensorium is Clear Type of Hallucinations: Visual: No, Auditory: No, Command: No - Level of Consciousness Level of Consciousness: Alert Orientation: Yes Intact, Yes Orientated to Time, Yes Orientated to Place, Yes Orientated to Person - Impulse Control Impulse Control: Tenuous - Insight and Judgement Insight and Judgement: Fair - Group Participation Particating in Group Activities: No - Medication Management Medication Management Adherence: Yes Treatment Course & Assessment Clinical Course & Impression: Hospital course part A: 68 year old white male with a history of schizophrenia admitted for suicidal ideation, Hospital course part B: Labs ordered included CBC, CMP, UDS, TSH, HBA1c, TSH, EKG, Toxicology screen, Urine analysis, and lipid profile. EKG performed and evaluated by medical team and determined to be normal. Vital signs were monitored and consult was placed for treatment of medical conditions during the course of his admission. His blood pressure was addressed and controlled over the course of admission. The patient was admitted to the adult behavioral unit and placed on 15 minute check for safety. PT was consulted to help with mobility and strength. Speech therapy was consulted to help with swallowing. Patient tolerated medication changes without side effects. Group therapy and services were offered. The risks , benefits, and alternative treatment options were discussed as well as of the risks of refusing treatment. Treatment associated risks discussed . After this discussion and an acknowledgement of this understanding , made the decision for the current type of treatment. Follow up care appointments were put in place for follow up care within 7 days of discharge. AUDIO VISUAL TECHNICIAN was checked no indications of prescription abuse or diversion were present. Patient advised of the lethality and dangerousness of combining medications with pain medications and/ or with alcohol and acknowledged this understanding. AIMS was not significant for signs of TD. Dr. Sandoval PCP was contacted and verified diagnosis and medications. The patient was informed of the dangers of using antipsychotics in the elderly. The patient was in bed and mobility was encouraged. He was picked up by the [facility] staff before discharge. He reported that he would tell staff member if he had thoughts of suicide. He was future orientated about getting cataract surgery. The patient was advised of the 24 hour / 7 days a week availability of the emergency room and to call 911 in the event of becoming suicidal and/ or homicidal and for all other emergencies. The patient was informed of the contact information for [facility], Suicide Prevention and Crisis Services, National Suicide Prevention Lifeline, [facility], Alcoholics Anonymous, and [facility]. His Medications were restarted. Zoloft was increased from 50mg at night to 75mg daily. He receives medication from staff at the [facility] assisted living facility. Improvements in patient from the time of admission include: No longer suicidal and no longer having feelings of hopelessness. Risk factors:Patient has a history of mental illness is male, white, single, history of service, has history of suicide attempt, multiple physical illnesses. Protective factors: Doesnt have current substance abuse, future orientation of going to [facility], adherence to treatment.Doesnt have access to firearms. Has support from staff at the [facility]. No recent stressors such as break up or of loved one. He was future orientated about getting cataract surgery. Vital Signs Temp Pulse Resp BP Pulse Ox 98.3 F 72 16 138/61 93 10/19/18 07:27 10/19/18 07:27 10/19/18 13:25 10/19/18 07:27 10/19/18 07:27 Laboratory Tests 10/13/18 10/13/18 10/13/18 12:52 12:52 16:10 WBC 7.9 RBC 5.22 Hgb 13.3 L Hct 42 MCV 79 L MCH 26 L MCHC 32 RDW 16 H Plt Count 175 MPV 9.2 Neut % (Auto) 72.1 Lymph % (Auto) 16.9 Powell % (Auto) 10.2 Eos % (Auto) 0.6 Baso % (Auto) 0.2 Absolute Neuts (auto) 5.7 Absolute Lymphs (auto) 1.3 Absolute Monos (auto) 0.8 Absolute Eos (auto) 0 Absolute Basos (auto) 0 Absolute Nucleated RBC 0 Nucleated RBC % 0 Sodium 138 Potassium TNP 3.8 Chloride 106 Carbon Dioxide 17 L Anion Gap 15 H BUN 7 Creatinine 1.03 Est GFR ( Amer) 87.4 Est GFR (Non-Af Amer) 72.3 BUN/Creatinine Ratio 6.8 L Glucose 86 Hemoglobin A1c Calcium 9.1 Total Bilirubin 0.30 AST TNP 17 ALT 12 Alkaline Phosphatase 77 Total Protein 7.0 Albumin 4.5 Globulin 2.5 Albumin/Globulin Ratio 1.8 Triglycerides Cholesterol LDL Cholesterol HDL Cholesterol TSH Cancelled 1.55 Urine Color Urine Appearance Urine pH Ur Specific [place] Urine Protein Urine Ketones Urine Blood Urine Nitrate Urine Bilirubin Urine Urobilinogen Ur Leukocyte Esterase Urine Glucose Salicylates < 2.50 Urine Opiates Screen Acetaminophen < 15 Ur Barbiturates Screen Ur Phencyclidine Scrn Ur Amphetamines Screen U Benzodiazepines Scrn Urine Cocaine Screen U Cannabinoids Screen Serum Alcohol < 10 10/13/18 10/13/18 10/14/18 17:40 17:40 06:17 WBC RBC Hgb Hct MCV MCH MCHC RDW Plt Count MPV Neut % (Auto) Lymph % (Auto) Powell % (Auto) Eos % (Auto) Baso % (Auto) Absolute Neuts (auto) Absolute Lymphs (auto) Absolute Monos (auto) Absolute Eos (auto) Absolute Basos (auto) Absolute Nucleated RBC Nucleated RBC % Sodium Potassium Chloride Carbon Dioxide Anion Gap BUN Creatinine Est GFR ( Amer) Est GFR (Non-Af Amer) BUN/Creatinine Ratio Glucose Hemoglobin A1c Calcium Total Bilirubin AST ALT Alkaline Phosphatase Total Protein Albumin Globulin Albumin/Globulin Ratio Triglycerides 171 Cholesterol 163 LDL Cholesterol 99 HDL Cholesterol 30.2 TSH Urine Color Yellow Urine Appearance Clear Urine pH 6.0 Ur Specific [place] 1.012 Urine Protein Negative Urine Ketones Negative Urine Blood Negative Urine Nitrate Negative Urine Bilirubin Negative Urine Urobilinogen Negative Ur Leukocyte Esterase Negative Urine Glucose Negative Salicylates Urine Opiates Screen None detected Acetaminophen Ur Barbiturates Screen None detected Ur Phencyclidine Scrn None detected Ur Amphetamines Screen None detected U Benzodiazepines Scrn None detected Urine Cocaine Screen None detected U Cannabinoids Screen None detected Serum Alcohol 10/14/18 06:17 WBC RBC Hgb Hct MCV MCH MCHC RDW Plt Count MPV Neut % (Auto) Lymph % (Auto) Powell % (Auto) Eos % (Auto) Baso % (Auto) Absolute Neuts (auto) Absolute Lymphs (auto) Absolute Monos (auto) Absolute Eos (auto) Absolute Basos (auto) Absolute Nucleated RBC Nucleated RBC % Sodium Potassium Chloride Carbon Dioxide Anion Gap BUN Creatinine Est GFR ( Amer) Est GFR (Non-Af Amer) BUN/Creatinine Ratio Glucose Hemoglobin A1c 5.6 Calcium Total Bilirubin AST ALT Alkaline Phosphatase Total Protein Albumin Globulin Albumin/Globulin Ratio Triglycerides Cholesterol LDL Cholesterol HDL Cholesterol TSH Urine Color Urine Appearance Urine pH Ur Specific [place] Urine Protein Urine Ketones Urine Blood Urine Nitrate Urine Bilirubin Urine Urobilinogen Ur Leukocyte Esterase Urine Glucose Salicylates Urine Opiates Screen Acetaminophen Ur Barbiturates Screen Ur Phencyclidine Scrn Ur Amphetamines Screen U Benzodiazepines Scrn Urine Cocaine Screen U Cannabinoids Screen Serum Alcohol Merits Inpatient Hospitalization: No Clear for Discharge: Adequate Clinical Respons Discharge Planning - Discharge Planning Discharge Plan: Outpatient Follow Up Outpatient Program: Private Clinician(s) Recommendations for Continuing Care: Medication Management Medications: Current Medications Acetaminophen (Tylenol Tab*) 650 mg PO Q4H PRN PRN Reason: PAIN or TEMP > 101 F Last Admin: 10/13/18 23:01 Dose: 650 mg Al Hydrox/Mg Hydrox/Simethicone (Maalox Plus*) 30 ml PO Q4H PRN PRN Reason: INDIGESTION Amlodipine Besylate (Norvasc Tab*) 5 mg PO DAILY [facility] Last Admin: 10/18/18 08:13 Dose: 5 mg Buspirone HCl (Buspar Tab *) 15 mg PO BID [facility] Last Admin: 10/18/18 19:49 Dose: 15 mg Hydralazine HCl (Apresoline Tab*) 25 mg PO TID [facility] Last Admin: 10/18/18 19:49 Dose: 25 mg Levetiracetam (Keppra Tab*) 1,000 mg PO BID [facility] Last Admin: 10/18/18 19:49 Dose: 1,000 mg Metoprolol Tartrate (Lopressor Tab*) 25 mg PO BID [facility] Last Admin: 10/18/18 19:49 Dose: 25 mg Multivitamins (Theragran Tab*) 1 tab PO DAILY [facility] Last Admin: 10/18/18 08:13 Dose: 1 tab Nicotine (Nicotine Inhaler*) 10 mg INH Q2H PRN PRN Reason: CRAVING Last Admin: 10/16/18 14:56 Dose: 10 mg Nicotine (Nicotine Patch 14 Mg/24 Hr*) 1 patch TRANSDERM DAILY [facility] Last Admin: 10/18/18 08:12 Dose: 1 patch Nicotine Polacrilex (Nicotine Gum*) 2 mg PO Q2H PRN PRN Reason: CRAVING Nitroglycerin (Nitroglycerin Tab 0.4 Mg*) 0.4 mg SL Q5M PRN PRN Reason: CHEST PAIN Olanzapine (Zyprexa Tab*) 10 mg PO DAILY [facility] Last Admin: 10/18/18 08:13 Dose: 10 mg Pantoprazole Sodium (Protonix Tab*) 40 mg PO DAILY [facility] Last Admin: 10/18/18 08:13 Dose: 40 mg Pharmacy Profile Note (Nicotine Patch Removal Note*) 1 note PATCH OFF 2100 [facility] Last Admin: 10/18/18 19:51 Dose: 1 note Rivaroxaban (Xarelto(*)) 20 mg PO DAILY [facility] Last Admin: 10/18/18 08:13 Dose: 20 mg Fluticasone/Salmeterol (Advair Diskus 250-50*) 1 puff INH RT.BID [facility] Last Admin: 10/18/18 19:49 Dose: 1 puff Sertraline HCl (Zoloft*) 75 mg PO 1100 [facility] Last Admin: 10/18/18 11:00 Dose: 75 mg Tamsulosin HCl (Flomax Cap*) 0.4 mg PO DAILY [facility] Last Admin: 10/18/18 08:13 Dose: 0.4 mg Tramadol HCl (Ultram*) 50 mg PO DAILY [facility] Last Admin: 10/18/18 08:14 Dose: 50 mg Discharge Planning: Prescriptions provided for discharge [x] Yes [] No Follow up care details as per social work arrangements. Patient response to discharge plan: [] eager for discharge [x] agreeable with discharge plan [] ambivalent about discharge [] disagrees with discharge today
[2018-10-19 13:18] VITALS: BP 138/61
[2018-10-19] MEDS: FLUTICASONE SALMETEROL INH SCH (13:24)
[2018-10-19] MEDS: levETIRAcetam TAB* 500 MG PO SCH (13:25)
[2018-10-19] MEDS: Metoprolol Tartrate TAB* 25 MG PO SCH (13:25)
[2018-10-19] MEDS: traMADol TAB* 50 MG PO SCH (13:25)
[2018-10-19] MEDS: Vitamin THERAPEUTIC TAB PO SCH (13:25)
[2018-10-19] MEDS: amLODIPine TAB* 5 MG PO SCH (13:25)
[2018-10-19] MEDS: hydrALAZINE TAB* 25 MG PO SCH (13:26)
[2018-10-19] MEDS: Pantoprazole TAB * 40 MG TAB PO SCH (13:26)
[2018-10-19] MEDS: Tamsulosin CAP* 0.4 MG PO SCH (13:26)
[2018-10-19] MEDS: OLANzapine TAB* 10 MG PO SCH (13:26)
[2018-10-19] MEDS: Nicotine PATCH 14 MG/24 HR* PATCH TRANSDERM SCH (13:27)
[2018-10-19] MEDS: busPIRone TAB* 15 MG PO SCH (13:27)
[2018-10-19] MEDS: Rivaroxaban TAB(*) 20 MG TAB PO SCH (13:28)
[2018-10-19] MEDS: Sertraline* 25 MG TAB PO SCH (13:28)
== END 2018-10-19 13:00 | DRG 885 ==
LOC: ED 11:13 → BSU 18:51
PROVIDERS: ADMIT Psychiatry & Neurology Psychiatry; ATTEND Psychiatry & Neurology Psychiatry
DX: F20.9 Schizophrenia, unspecified (principal); R45.851 Suicidal ideations; G40.909 Epilepsy, unspecified, not intractable, without status epilepticus; J44.9 Chronic obstructive pulmonary disease, unspecified; I25.10 Atherosclerotic heart disease of native coronary artery without angina pectoris; I11.9 Hypertensive heart disease without heart failure; F17.210 Nicotine dependence, cigarettes, uncomplicated; Z88.0 Allergy status to penicillin; Z88.8 Allergy status to other drugs, medicaments and biological substances; Z79.1 Long term (current) use of non-steroidal anti-inflammatories (NSAID); Z79.51 Long term (current) use of inhaled steroids; Z79.899 Other long term (current) drug therapy
CPT/HCPCS: 36415; 80053; 80061; 80307; 80320; 80329; 81003; 83036; 84443; 85025; 93005; 99222; 99231; 99233; 99238; 99284; A9270-GY; G0480; G8978-GP-CI; G8979-GP-CI; G8980-GP-CI

== ENCOUNTER 2019-09-26 02:34 | Inpatient (IN) | payer MEDICARE, MEDICAID ==
--- NOTE | 2019-09-26 03:06 | ED ---
Psychiatric Complaint - HPI Summary HPI Summary: This pt is a 69 Y/O M presenting to [facility] with a CC of suicidal ideations and anxiety. He states that he usually takes Klonopin to help him sleep at night but his PCP canceled his prescription tonight. He states that he has been eating well and currently denies any HI, fevers, chills, headaches, SOB, N/V, and CP. He states no alleviating factors. He states that he has a PMHx of suicidal ideations, depression, and self-harm but denies any HI Hx. - History Of Current Complaint Chief Complaint: EDSuicidal Time Seen by Provider: 09/26/19 02:56 Hx Obtained From: Patient Onset/Duration: Sudden Onset, Lasting Hours - 3 Timing: Constant Severity Initially: Moderate Severity Currently: Moderate Character: Anxious Aggravating Factor(s): Other - pt reports his PCP cancelled his klonopin prescription Alleviating Factor(s): Nothing Associated Signs And Symptoms: Positive: Sleep Disturbance Related History: Positive For: Prior Psychiatric Issues Has Suicidal: Reports: Thoughts, Demonstrates Gesture, Has Prior Attempt(s) Has Homicidal: Denies: Thoughts, With A Plan Recent Stressor(s): medication prescription was cancelled - Allergies/Home Medications Allergies/Adverse Reactions: Allergies Allergy/AdvReac Type Severity Reaction Status Date / Time chlorpromazine Allergy Swelling Verified 09/26/19 02:39 [From Thorazine] Penicillins Allergy Swelling Verified 09/26/19 02:39 Home Medications: Home Medications Albuterol Sulfate 1.25 mg INH Q6H 09/26/19 [History Confirmed 09/26/19] Aspirin EC TAB* [Ecotrin EC Low Dose 81 MG*] 81 mg PO DAILY 09/26/19 [History Confirmed 09/26/19] Atorvastatin* [Lipitor*] 40 mg PO DAILY 09/26/19 [History Confirmed 09/26/19] Magnesium Oxide TAB* [MagOx 400 TAB*] 400 mg PO BEDTIME 09/26/19 [History Confirmed 09/26/19] Melatonin (NF) 1 tab PO BEDTIME 09/26/19 [History Confirmed 09/26/19] Multivitamins/Minerals TAB* [Theragran/minerals TAB*] 1 tab PO DAILY 09/26/19 [ History Confirmed 09/26/19] OLANzapine TAB* [Zyprexa 10 MG TAB*] 10 mg PO BEDTIME 09/26/19 [History Confirmed 09/26/19] Ondansetron HCl [Zofran] 8 mg PO Q8H PRN 09/26/19 [History Confirmed 09/26/19] Sertraline* [Zoloft*] 100 mg PO DAILY 09/26/19 [History Confirmed 09/26/19] clonazePAM TAB(*) [KlonoPIN TAB(*)] 0.5 mg PO BID PRN 09/26/19 [History Confirmed 09/26/19] hydrOXYzine pamoate [Vistaril] 25 mg PO BEDTIME 09/26/19 [History Confirmed 12/10] levETIRAcetam TAB* [Keppra TAB*] 500 mg PO BID 09/26/19 [History Confirmed 09/26] PMH/Surg Hx/FS Hx/Imm Hx Previously Healthy: Yes Endocrine/Hematology History: Denies: Hx Diabetes Cardiovascular History: Reports: Hx Angina, Hx Hypertension Denies: Hx Coronary Artery Disease, Hx Hypercholesterolemia, Hx Myocardial Infarction, Hx Valvular Heart Disease Respiratory History: Reports: Hx Chronic Obstructive Pulmonary Disease (COPD) Denies: Hx Asthma GI History: Reports: Hx Gastroesophageal Reflux Disease Comment Only: Other GI Disorders - c/o intermittent heartburn Sensory History: Reports: Hx Contacts or Glasses Denies: Hx Deafness, Hx Hearing Aid Opthamlomology History: Reports: Hx Contacts or Glasses Neurological History: Reports: Hx Headaches, Hx Seizures Psychiatric History: Reports: Hx Depression, Hx Inpatient Treatment, Hx Community Mental Health Tx, Hx Schizophrenia, Hx Suicide Attempt, Hx Substance Abuse Denies: Hx Eating Disorder, Hx of Violent Episodes Against Others - Cancer History Hx Chemotherapy: No Hx Radiation Therapy: No - Surgical History Surgical History: Yes Surgery Procedure, Year, and Place: rhinoplasty 1971. undescended L testicle 1968 Hx Anesthesia Reactions: No - Immunization History Immunizations Up to Date: Yes Infectious Disease History: No Infectious Disease History: Denies: Traveled Outside the [place] in Last 30 Days - Family History Known Family History: Positive: Other - patient is adopted so he does not know his family history - Social History Occupation: Retired Lives: [facility] [place] Alcohol Use: None Hx Substance Use: Yes Substance Use Type: Reports: Marijuana Hx Tobacco Use: Yes Smoking Status (MU): Heavy Every Day Tobacco Smoker Type: Cigarettes Amount Used/How Often: 1 PPD Length of Time of Smoking/Using Tobacco: "years" Review of Systems Negative: Fever, Chills Negative: Chest Pain Negative: Shortness Of Breath Negative: Vomiting, Nausea Negative: Headache Psychological: Other - POSITIVE: SI NEGATIVE: HI Positive: Anxious All Other Systems Reviewed And Are Negative: Yes Physical Exam - Summary Physical Exam Summary: Appearance: Well-appearing, Well-nourished, lying in bed comfortable Skin: Warm, dry, no obvious rash Eyes: sclera anicteric, no conjunctival pallor ENT: mucous membranes moist Neck: deferred Respiratory: No signs of respiratory distress Cardiovascular: Appears well perfused, pulses are nml Abdomen: deferred Musculoskeletal: Moving all 4 extremities without obvious discomfort Neurological: Awake and alert, mentation is normal, speech is fluent and appropriate Psychiatric: affect is normal, does not appear anxious or depressed Triage Information Reviewed: Yes Vital Signs On Initial Exam: Initial Vitals Temp Pulse Resp BP Pulse Ox 97.8 F 62 16 138/65 93 09/26/19 02:35 09/26/19 02:35 09/26/19 02:35 09/26/19 02:35 09/26/19 02:35 Vital Signs Reviewed: Yes Procedures - Sedation Patient Received Moderate/Deep Sedation with Procedure: No Diagnostics - Vital Signs Vital Signs Temp Pulse Resp BP Pulse Ox 09/26/19 02:35 97.8 F 62 16 138/65 93 - Laboratory Result Diagrams: 09/26/19 03:57 09/26/19 03:57 Lab Statement: Any lab studies that have been ordered have been reviewed, and results considered in the medical decision making process. Course/Dx - Course Course Of Treatment: This pt is a 69 Y/O M presenting to [facility] with a CC of suicidal ideations. He states that he usually takes Klinopin to help him sleep at night but his PCP canceled his prescription tonight. He states that he has been eating well and currently denies any HI, fevers, chills, headaches, SOB, N/ V, and CP. He states no alleviating factors. He states that he has a PMHx of suicidal ideations and self-harm but denies any HI Hx. His PE found no acute abnormalities. Pt was medically cleared for a MHE at 0300. This pt will be a sign out to Dr. Montemayor at shift change 0700 09/26/2019 pending a MHE and disposition. - Differential Dx/Clinical Impression Provider Diagnosis: Depressive disorder - Physician Notifications Patient Is Medically Stable For: Psych Evaluation - 0300 Discharge ED - Sign-Out/Discharge Documenting (check all that apply): Sign-Out Patient Signing out patient TO: Ephraim Montemayor - Discharge Plan Condition: Stable [place] [place] Disposition and Condition Condition: STABLE Disposition: [place] [facility] [place] Attestation Statements Document Initiated by Mattiibe: Yes Documenting Scribe: Dayton Maradiaga Provider For Whom Gwen is Documenting (Include Credential): Juan José Yeager MD Scribe Attestation: Dayton Roy scribed for Juan José Yeager MD on 09/27/19 at 0522. Scribe Documentation Reviewed: Yes Provider Attestation: The documentation as recorded by the Dayton cavazos accurately reflects the service I personally performed and the decisions made by me, Juan José Yeager MD Status of Scribe Document: Viewed
[2019-09-26 04:06] LABS: ABS Eosinophils 0.1 10^3/ul (0-0.6); ABS Lymphocytes 2.2 10^3/ul (1.0-4.8); ABS Neutrophils 5.3 10^3/ul (1.5-7.7); Eosinophil % 1.7 %; Hematocrit 36 % (42-52); Hemoglobin 11.6 g/dL (14.0-18.0); Lymphocyte % 24.8 %; Mean Corpuscular HGB Conc 32 g/dL (31-36); Mean Corpuscular Hemoglobin 25 pg (27-31); Mean Corpuscular Volume 76 fL (80-94); Mean Platelet Volume 9.4 fL (7.4-10.4); Nucleated Red Blood Cells % 0.1; Platelet Count 151 10^3/uL (150-450); Red Blood Count 4.73 10^6 /uL (4.18-5.48); Red Cell Distribution Width 18 % (10-15); White Blood Count 8.7 10^3/uL (3.5-10.8)
[2019-09-26 04:12] LABS: Urine Appearance Clear; Urine Bilirubin Negative (Negative); Urine Blood Negative (Negative); Urine Color Straw; Urine Glucose Negative (Negative); Urine Ketones Negative (Negative); Urine Nitrite Negative (Negative); Urine Protein Negative (Negative); Urine Specific Gravity 1.005 (1.010-1.030); Urine Urobilinogen Negative (Negative)
[2019-09-26 04:27] LABS: Urine Benzodiazepine Screen None Detected (None Detect); Urine Opiates Screen None Detected (None Detect)
[2019-09-26 04:31] LABS: ALT 12 U/L (7-52); AST 14 U/L (13-39); Albumin/Globulin Ratio 1.8 (1-3); Alkaline Phosphatase 67 U/L (34-104); Anion Gap 6 mmol/L (2-11); BUN/Creatinine Ratio 18.8 (8-20); Blood Urea Nitrogen 15 mg/dL (6-24); CO2 Carbon Dioxide 26 mmol/L (22-32); Calcium 8.9 mg/dL (8.6-10.3); Chloride 106 mmol/L (101-111); EGFR African American 116.7 (>60); EGFR Non-African American 96.4 (>60); Globulin 2.2 g/dL (2-4); Glucose 73 mg/dL (70-100); Potassium 3.6 mmol/L (3.5-5.0); Sodium 138 mmol/L (135-145); Total Protein 6.2 g/dL (6.4-8.9)
[2019-09-26 04:34] LABS: Acetaminophen < 15 mcg/mL; Alcohol < 10 mg/dL (<10); Salicylate < 2.50 mg/dL (<30)
[2019-09-26 04:50] LABS: TSH (Thyroid Stimulating Horm) 3.14 mcIU/mL (0.34-5.60)
--- NOTE | 2019-09-26 07:19 | ED ---
Progress - Progress Note Progress Note: The patient is a sign-out from Dr. Juan José Yeager MD, to Dr. James Montemayor DO, at change of shift at 0700 on 09/26/19, pending mental health evaluation and disposition. Dr. Salas and mental health staff have evaluated the patient and determined that he is appropriate for admission, which the patient agrees to voluntarily. Dr. Archer has placed admission orders. Course/Dx - Course Course Of Treatment: The patient is a sign-out from Dr. Juan José Yeager MD, to Dr. James Montemayor DO, at change of shift at 0700 on 09/26/19, pending mental health evaluation and disposition. Dr. Salas and mental health staff have evaluated the patient and determined that he is appropriate for admission, which the patient agrees to voluntarily. Dr. Archer has placed admission orders. - Diagnoses Provider Diagnoses: Depressive disorder - Provider Notifications Discussed Care Of Patient With: Frank Salas - psychiatry Time Discussed With Above Provider: 10:15 Instructed by Provider To: Admit As Inpatient - Dr. Salas and mental health staff have evaluated the patient and determined that he is appropriate for admission, which the patient agrees to voluntarily. Discharge ED - Sign-Out/Discharge Documenting (check all that apply): Patient Departure - Patient admitted by Dr. Salas., Receiving Sign-Out Receiving patient FROM: Juan José Yeager - Patient is a sign-out from Dr. Juan José Yeager MD, at change of shift at 0700 on 09/26/19, pending MHE and disposition. - Discharge Plan Condition: Stable [place] [place]errals: Zeus Sandoval MD [Primary Care Provider] - - Billing Disposition and Condition Condition: STABLE Disposition: [place] [facility] [place] Attestation Statements Document Initiated by Mattiibtao: Yes Documenting Scribe: Nickie Foster Provider For Whom Gwen is Documenting (Include Credential): Dr. James Montemayor DO Scribe Attestation: Nickie Roy scribed for Dr. James Montemayor DO on 09/26/19 at 1246. Scribe Documentation Reviewed: Yes Provider Attestation: The documentation as recorded by the Nickie cavazos accurately reflects the service I personally performed and the decisions made by me, Dr. James Montemayor, DO Status of Scribe Document: Viewed Procedures - Sedation Patient Received Moderate/Deep Sedation with Procedure: No
[2019-09-26] MEDS ORDERED: Nicotine* 4MG (FRUIT FLAVOR) GUM PO PRN (10:14)
[2019-09-26] MEDS ORDERED: Nitroglycerin TAB 0.4 MG* 0.4 MG TAB SL PRN (10:15)
--- NOTE | 2019-09-26 13:28 | HP ---
H&P (Free Text) History and Physical: Justification for admission: Immediate Safety. CC " I want to cut myself with a razor " The patient was brought to [facility] by ambulance after he expressed to a staff member at the [place] home that he was going to cut his wrist with a razor. Patient did not note any recent changes or stressful life events in his life. He reported that he is getting along with others at the [place]. He enjoys watching TV. He denied access to firearms or stockpiles of medications. He reported adequate sleep and appetite. He reported taking his medications that are provided by the staff at the [place]. He reported that yesterday he went to see his primary care doctor and he discontinued klonopin that he was taking for the last 2 months. He denied tremor or seizures. The patient denied homicidal ideation intent or plan. The patient denied auditory and/ or visual hallucinations. MDD He reported feeling depressed for most of the time, lasting more than 2 weeks. He reported feelings of hopelessness and unintentional weight loss. Denied interruption of sleep or feeling tired throughout the day. He reported loss of energy or lack of motivation to complete tasks. He denied overwhelming feelings of guilt, or decreased concentration. Bipolar Denied symptoms of jocelynn such as having many ideas at once. Denied increased talkativeness where no one can interrupt. Denied feeling irritable most of the time while having an persistent abundance of energy most of the day without the use of energy drinks, stimulants, or recreational drug use. Denied an increase in intensity in goal directed activities. Denied having the decreased need to sleep for days , having prolonged elevated heighted mood , or feeling on top of the world. Denied impulsive risky sexual encounters. Denied spending money recklessly , going on spending sprees wiping out savings. Denied impulsively traveling out of town or country, having super fragoso, and unrealistic wealth or fame. Anxiety Denied having symptoms of anxiety such as having times where heart feels that it is beating out of chest , sweaty palms, or shallow breathing. Denied having uncomfortable or intrusive thoughts. Denied feeling restless, high strung, or worrying too much most of the time. Psychosis Does not endorse hearing things that other people do not hear or seeing things other people do not see. Denied feeling that TV is making references. Denied feeling that people are spying , following , or reading their thoughts. Phobias: Patient denied having excessive fear of a particular thing or situation. Eating disorders: Patient denied having excessive eating habits or feelings of guilt after eating. Denied repeated episodes of self induced vomiting after eating. PTSD Denied flashbacks, nightmares and avoidance of a prior traumatic event. PAST PSYCHIATRIC HISTORY: Prior Diagnosis : Major Depressive Disorder History of past Psychiatric Hospitalizations: 3 prior psychiatric admission in 1978 for cutting his wrist, 2015, and last admission at [facility] in September 2018 History of past suicide/homicide attempts : 1 past suicide attempt in 1978 by cutting his wrist. Denied past homicidal incidents. [facility] PCP Dr[facility] Sandoval Medications: Past trials of medications include zoloft 75mg and buspar 15mg BID, zyprexa 10mg daily FAMILY HISTORY: - Suicide: Denied family history of suicide. - Mental illness: Denied history mental health in the family. - Substance abuse: Denied substance abuse among family members. SUBSTANCE ABUSE HISTORY: Denied using alcohol, heroin and cocaine other illicit substances. Denied abusing pills not prescribed . Denied past Substance abuse treatment. - Tobacco: 1/2 Pack per day SOCIAL HISTORY: - Childhood: Born and raised in [place]. Raised by both parents who are both from unknown causes. 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 He is currently retired and living at the [facility]. He has no supportive contacts of family or friends. PAST MEDICAL HISTORY: Hypertension, COPD, BPH, seizure disorder - Allergies: Penicillin and Thorazine Physical Exam: Please see ED note Mental Status Exam on Admission APPEARANCE : 68 year old white male who appears much older than stated age. He is laying in bed with long cadet and appears disheveled. BEHAVIOR: Cooperative , calm EYE CONTACT: Fair PSYCHOMOTOR ACTIVITY: psychomotor retardation. MOVEMENTS: No abnormal movements observed. SPEECH : Normal rate, rhythm, volume and tone. MOOD : " Sad " AFFECT : Constricted THOUGHT PROCESS: formulated and organized in a logical, linear goal directed manner. THOUGHT CONTENT: no delusions, preoccupations, obsessions, phobias or preoccupations. PERCEPTION: No current auditory or visual hallucinations. Doesnt appear to be responding to internal cues. No evidence of depersonalization , de-realization, or illusions SUICIDALITY Suicidal with plan to cut wrist with a razor HOMICIDALITY Denied homicidal ideation, intent or plan. ORIENTATION: Oriented to self, location, and time. Insight/judgment: Poor insight and judgment Diagnosis on Admission: Schizophrenia. 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 Plan # Admit to BSU, Q15 minute observation. Start regular diet. Encourage participation in activities on the milieu. # Patient evaluated in ED and was determined by the emergency room Physician to be medically stable for admission to the BSU. # Justification for Admission: For immediate safety per outlined in the [facility] Hygiene Code. # Voluntary admission. The patient requires inpatient admission at this time to assure safety, receive treatment and work toward stabilization. # Labs ordered: CBC, CMP, UDS, TSH, HbA1c, TSH, EKG # Obtain collateral information once release is signed. # Collaboration with Social Work #Fall precautions/ Seizure precautions #Order for walker and PT #Continue home medications and Zoloft to 75mg po qhs. # Will not continue benzodiazepines due to cognitive and fall risk and will monitor for signs of withdrawal, given dose 0.5mg BID, half life of clonazepam withdrawal protocol not indicated. #Goals before discharge include: Reduce/ eliminate suicidal thoughts The risks, benefits, and alternative treatment options were discussed as well as the risks of refusing treatment. After this discussion and an acknowledgement of this understanding was made. A risk/ benefit assessment of treatment was considered and discussed with the patient. When comparing the risks of treatment with the dangers of not receiving treatment, the benefits of treatment outweigh the treatment risks at this time. Risks of allergy, suicidal ideation, behavioral changes, dystonia, rashes, electrolyte imbalances, movement disorders, cardiac conduction changes, serotonin syndrome, metabolic risks and NMS were among some of the risks discussed. Buspirone HCl (Buspar Tab *) 15 mg PO BID HONG Hydralazine HCl (Apresoline Tab*) 25 mg PO TID HONG Levetiracetam (Keppra Tab*) 1,000 mg PO BID HONG Metoprolol Tartrate (Lopressor Tab*) 25 mg PO BID HONG Mometasone Furoate/Formoterol Fumar (Dulera 200/5 Mdi*) 2 puff INH BID HONG Nicotine Polacrilex (Nicotine Gum*) 4 mg PO Q2H PRN PRN Reason: CRAVING Nitroglycerin (Nitroglycerin Tab 0.4 Mg*) 0.4 mg SL Q5M PRN PRN Reason: ANGINA Olanzapine (Zyprexa Tab*) 10 mg PO DAILY [facility] Last Admin: 09/26/19 13:48 Dose: Not Given Pantoprazole Sodium (Protonix Tab*) 40 mg PO DAILY [facility] Last Admin: 09/26/19 13:48 Dose: Not Given Rivaroxaban (Xarelto(*)) 20 mg PO DAILY [facility] Last Admin: 09/26/19 13:48 Dose: Not Given Sertraline HCl (Zoloft*) 75 mg PO DAILY [facility] Last Admin: 09/26/19 13:48 Dose: Not Given Tamsulosin HCl (Flomax Cap*) 0.4 mg PO DAILY [facility] Last Admin: 09/26/19 13:48 Dose: Not Given Tramadol HCl (Ultram*) 50 mg PO DAILY [facility] Last Admin: 09/26/19 13:48 Dose: Not Given Sodium 138 mmol/L (135-145) 09/26/19 03:57 Potassium 3.6 mmol/L (3.5-5.0) 09/26/19 03:57 BUN 15 mg/dL (6-24) 09/26/19 03:57 Creatinine 0.80 mg/dL (0.67-1.17) 09/26/19 03:57 Hemoglobin A1c 5.7 % (4.0-5.6) H 09/27/19 07:35 Calcium 8.9 mg/dL (8.6-10.3) 09/26/19 03:57 AST 14 U/L (13-39) 09/26/19 03:57 ALT 12 U/L (7-52) 09/26/19 03:57 Triglycerides 100 mg/dL 09/27/19 07:35 Cholesterol 101 mg/dL 09/27/19 07:35 LDL Cholesterol 43 mg/dL 09/27/19 07:35
[2019-09-26] MEDS: Rivaroxaban TAB(*) 20 MG TAB PO SCH (13:48)
[2019-09-26] MEDS: Tamsulosin CAP* 0.4 MG PO SCH (13:48)
[2019-09-26] MEDS: traMADol TAB* 50 MG PO SCH (13:48)
[2019-09-26] MEDS: Pantoprazole TAB * 40 MG TAB PO SCH (13:48)
[2019-09-26] MEDS: OLANzapine TAB* 10 MG PO SCH (13:48)
[2019-09-26] MEDS: Sertraline* 25 MG TAB PO SCH (13:48)
[2019-09-26] MEDS: hydrALAZINE TAB* 25 MG PO SCH ×2 (15:34→20:36)
[2019-09-26] MEDS ORDERED: Acetaminophen TAB* 325 MG PO PRN (15:53)
[2019-09-26] MEDS ORDERED: Al Hydrox/Mg Hydrox/Simet LIQ* 30 ML UDC PO PRN (15:54)
[2019-09-26] MEDS: levETIRAcetam TAB* 500 MG PO SCH (20:36)
[2019-09-26] MEDS: busPIRone TAB* 15 MG PO SCH (20:36)
[2019-09-26] MEDS: Metoprolol Tartrate TAB* 25 MG PO SCH (20:37)
[2019-09-26] MEDS: Mometasone/Formoter 200/5 MDI INH SCH (20:38)
[2019-09-27 08:13] LABS: HDL Cholesterol 38.2 mg/dL
[2019-09-27] MEDS: Mometasone/Formoter 200/5 MDI INH SCH ×2 (09:28→20:26)
[2019-09-27] MEDS: busPIRone TAB* 15 MG PO SCH ×2 (09:28→20:25)
[2019-09-27] MEDS: levETIRAcetam TAB* 500 MG PO SCH ×2 (09:29→20:24)
[2019-09-27] MEDS: OLANzapine TAB* 10 MG PO SCH (09:29)
[2019-09-27] MEDS: Vitamin THERAPEUTIC TAB PO SCH (09:30)
[2019-09-27] MEDS: Tamsulosin CAP* 0.4 MG PO SCH (09:30)
[2019-09-27] MEDS: Pantoprazole TAB * 40 MG TAB PO SCH (09:30)
[2019-09-27] MEDS: Rivaroxaban TAB(*) 20 MG TAB PO SCH (09:31)
[2019-09-27] MEDS: Sertraline* 25 MG TAB PO SCH (09:31)
[2019-09-27] MEDS: Metoprolol Tartrate TAB* 25 MG PO SCH ×2 (09:32→20:24)
[2019-09-27] MEDS: traMADol TAB* 50 MG PO SCH (09:32)
[2019-09-27] MEDS: hydrALAZINE TAB* 25 MG PO SCH ×3 (09:33→20:25)
--- NOTE | 2019-09-27 13:19 | PN ---
Subjective - Subjective Date of Service: 09/27/19 Service Type: 94605 Hosp care 35 min high complexity Subjective: Nursing Report: Patient mostly in his room, no behavioral incidents. CC: "okay" Patient was seen and evaluated in his room. The patient denied tremor, seizures , hallucinations. He reported having adequate appetite and sleep. Per nursing no behavioral issues or overnight events reported. Patient reported that he is tolerating medications without side effects. Patient reported feeling tired with low energy throughout the day. Objective - General Observations Appearance: Disheveled Appears Stated Age: Yes Stature: Thin Posture: Slumped Eye Contact: Average Behavior/Activity: Slowed - Interaction Observations Attitude Towards Examiner: Cooperative Stated Mood: Dysphoric Speech Pattern/Tone: Quiet Volume Thought Process: Coherent Perception: WNL Thought Content: Self-Deprecatory Hallucination Type: None Delusion Type: None - Cognitive Function Orientation: A&O x 4 Level of Consciousness: Awake - Medication Compliance Cooperative with Inpatient Medication Regimen: Yes - Group Participation Participates in Group Activities: No Assessment - Assessment Merits Inpatient Hospitalization: For Immediate Safety Clinical Impression: 69 year old with history of Major depressive disorder with plan to cut wrist with razor came to the hospital and was admitted to the [facility] at [facility]. Plan - Plan Treatment Plan: Name: FRANCA BERUMEN Birthdate: 1950 [id number] Plan #Q15 minute observation # The patient requires inpatient admission at this time to assure safety, receive treatment and work toward stabilization. # Collaboration with Handkerchief Maker Altagracia Henriquez # Fall precautions/ seizure precautions #Order for walker and PT #Increase Zoloft to 100mg po qhs. # Hospital consult placed to assess medical needs and abnormal CBC results #Goals before discharge include: Reduce suicidal ideation Sodium 138 mmol/L (135-145) 09/26/19 03:57 Potassium 3.6 mmol/L (3.5-5.0) 09/26/19 03:57 BUN 15 mg/dL (6-24) 09/26/19 03:57 Creatinine 0.80 mg/dL (0.67-1.17) 09/26/19 03:57 Hemoglobin A1c 5.7 % (4.0-5.6) H 09/27/19 07:35 Calcium 8.9 mg/dL (8.6-10.3) 09/26/19 03:57 AST 14 U/L (13-39) 09/26/19 03:57 ALT 12 U/L (7-52) 09/26/19 03:57 Triglycerides 100 mg/dL 09/27/19 07:35 Cholesterol 101 mg/dL 09/27/19 07:35 LDL Cholesterol 43 mg/dL 09/27/19 07:35 09/26/19 09/26/19 09/26/19 03:57 03:57 04:00 WBC 8.7 RBC 4.73 Hgb 11.6 L Hct 36 L MCV 76 L MCH 25 L MCHC 32 RDW 18 H Plt Count 151 MPV 9.4 Neut % (Auto) 61.3 Lymph % (Auto) 24.8 [place] % (Auto) 12.0 Eos % (Auto) 1.7 Baso % (Auto) 0.2 Absolute Neuts (auto) 5.3 Absolute Lymphs (auto) 2.2 Absolute Monos (auto) 1.0 H Absolute Eos (auto) 0.1 Absolute Basos (auto) 0.0 Absolute Nucleated RBC 0.0 Nucleated RBC % 0.1 Sodium 138 Potassium 3.6 Chloride 106 Carbon Dioxide 26 Anion Gap 6 BUN 15 Creatinine 0.80 Est GFR ( Amer) 116.7 Est GFR (Non-Af Amer) 96.4 BUN/Creatinine Ratio 18.8 Glucose 73 Hemoglobin A1c Calcium 8.9 Iron TIBC % Saturation Unsat Iron Binding Transferrin Ferritin Total Bilirubin 0.20 AST 14 ALT 12 Alkaline Phosphatase 67 Total Protein 6.2 L Albumin 4.0 Globulin 2.2 Albumin/Globulin Ratio 1.8 Triglycerides Cholesterol LDL Cholesterol HDL Cholesterol Vitamin B12 Folate TSH 3.14 Urine Color Straw Urine Appearance Clear Urine pH 6.0 Ur Specific [place] 1.005 L Urine Protein Negative Urine Ketones Negative Urine Blood Negative Urine Nitrate Negative Urine Bilirubin Negative Urine Urobilinogen Negative Ur Leukocyte Esterase Negative Urine Glucose Negative Salicylates < 2.50 Urine Opiates Screen Acetaminophen < 15 Ur Barbiturates Screen Ur Phencyclidine Scrn Ur Amphetamines Screen U Benzodiazepines Scrn Urine Cocaine Screen U Cannabinoids Screen Serum Alcohol < 10 09/26/19 09/27/19 09/27/19 04:00 07:35 07:35 WBC RBC Hgb Hct MCV MCH MCHC RDW Plt Count MPV Neut % (Auto) Lymph % (Auto) [place] % (Auto) Eos % (Auto) Baso % (Auto) Absolute Neuts (auto) Absolute Lymphs (auto) Absolute Monos (auto) Absolute Eos (auto) Absolute Basos (auto) Absolute Nucleated RBC Nucleated RBC % Sodium Potassium Chloride Carbon Dioxide Anion Gap BUN Creatinine Est GFR ( Amer) Est GFR (Non-Af Amer) BUN/Creatinine Ratio Glucose Hemoglobin A1c 5.7 H Calcium Iron TIBC % Saturation Unsat Iron Binding Transferrin Ferritin Total Bilirubin AST ALT Alkaline Phosphatase Total Protein Albumin Globulin Albumin/Globulin Ratio Triglycerides 100 Cholesterol 101 LDL Cholesterol 43 HDL Cholesterol 38.2 Vitamin B12 Folate TSH Urine Color Urine Appearance Urine pH Ur Specific [place] Urine Protein Urine Ketones Urine Blood Urine Nitrate Urine Bilirubin Urine Urobilinogen Ur Leukocyte Esterase Urine Glucose Salicylates Urine Opiates Screen None detected Acetaminophen Ur Barbiturates Screen None detected Ur Phencyclidine Scrn None detected Ur Amphetamines Screen None detected U Benzodiazepines Scrn None detected Urine Cocaine Screen None detected U Cannabinoids Screen None detected Serum Alcohol 09/28/19 09/28/19 08:16 08:16 WBC 8.0 RBC 5.17 Hgb 12.8 L Hct 39 L MCV 75 L MCH 25 L MCHC 33 RDW 18 H Plt Count 163 MPV 9.5 Neut % (Auto) 66.2 Lymph % (Auto) 21.2 [place] % (Auto) 10.4 Eos % (Auto) 1.9 Baso % (Auto) 0.3 Absolute Neuts (auto) 5.3 Absolute Lymphs (auto) 1.7 Absolute Monos (auto) 0.8 Absolute Eos (auto) 0.2 Absolute Basos (auto) 0.0 Absolute Nucleated RBC 0.0 Nucleated RBC % 0.0 Sodium Potassium Chloride Carbon Dioxide Anion Gap BUN Creatinine Est GFR ( Amer) Est GFR (Non-Af Amer) BUN/Creatinine Ratio Glucose Hemoglobin A1c Calcium Iron 26 L TIBC 451 H % Saturation 6 L Unsat Iron Binding < 436 Transferrin 322 Ferritin 8.4 L Total Bilirubin AST ALT Alkaline Phosphatase Total Protein Albumin Globulin Albumin/Globulin Ratio Triglycerides Cholesterol LDL Cholesterol HDL Cholesterol Vitamin B12 558 Folate > 20.00 TSH Urine Color Urine Appearance Urine pH Ur Specific [place] Urine Protein Urine Ketones Urine Blood Urine Nitrate Urine Bilirubin Urine Urobilinogen Ur Leukocyte Esterase Urine Glucose Salicylates Urine Opiates Screen Acetaminophen Ur Barbiturates Screen Ur Phencyclidine Scrn Ur Amphetamines Screen U Benzodiazepines Scrn Urine Cocaine Screen U Cannabinoids Screen Serum Alcohol Continued Medication Management: Continue Outpt Medication Medications: Current Medications Acetaminophen (Tylenol Tab*) 325 mg PO Q6H PRN PRN Reason: PAIN - MILD Last Admin: 09/26/19 18:20 Dose: 325 mg Al Hydrox/Mg Hydrox/Simethicone (Maalox Plus*) 30 ml PO Q4H PRN PRN Reason: INDIGESTION Buspirone HCl (Buspar Tab *) 15 mg PO BID [facility] Last Admin: 09/27/19 09:28 Dose: 15 mg Hydralazine HCl (Apresoline Tab*) 25 mg PO TID [facility] Last Admin: 09/27/19 09:33 Dose: 25 mg Levetiracetam (Keppra Tab*) 1,000 mg PO BID [facility] Last Admin: 09/27/19 09:29 Dose: 1,000 mg Metoprolol Tartrate (Lopressor Tab*) 25 mg PO BID [facility] Last Admin: 09/27/19 09:32 Dose: 25 mg Mometasone Furoate/Formoterol Fumar (Dulera 200/5 Mdi*) 2 puff INH BID [facility] Last Admin: 09/27/19 09:28 Dose: 2 puff Multivitamins (Theragran Tab*) 1 tab PO DAILY [facility] Last Admin: 09/27/19 09:30 Dose: 1 tab Nicotine Polacrilex (Nicotine Gum*) 4 mg PO Q2H PRN PRN Reason: CRAVING Nitroglycerin (Nitroglycerin Tab 0.4 Mg*) 0.4 mg SL Q5M PRN PRN Reason: ANGINA Olanzapine (Zyprexa Tab*) 10 mg PO DAILY [facility] Last Admin: 09/27/19 09:29 Dose: 10 mg Pantoprazole Sodium (Protonix Tab*) 40 mg PO DAILY [facility] Last Admin: 09/27/19 09:30 Dose: 40 mg Rivaroxaban (Xarelto(*)) 20 mg PO DAILY [facility] Last Admin: 09/27/19 09:31 Dose: 20 mg Sertraline HCl (Zoloft*) 75 mg PO DAILY [facility] Last Admin: 09/27/19 09:31 Dose: 75 mg Tamsulosin HCl (Flomax Cap*) 0.4 mg PO DAILY [facility] Last Admin: 09/27/19 09:30 Dose: 0.4 mg Tramadol HCl (Ultram*) 50 mg PO DAILY [facility] Last Admin: 09/27/19 09:32 Dose: 50 mg - Discharge Plan Discharge Plan: Inpatient Hospitalization
--- NOTE | 2019-09-27 20:14 | CONS ---
CONSULTATION REPORT: DATE OF CONSULT: 09/27/19 REQUESTED BY: Dr. Archer. REASON FOR CONSULT: Decrease in H and H. HISTORY OF PRESENT ILLNESS: Mr. Aguilera is a 56-year-old male, he presented to the emergency department on 09/26/19 with a chief complaint of suicidal ideation and anxiety. It was reported that his Klonopin prescription was not renewed, which he states made him very anxious and was the catalyst for this episode. Currently complains of a 6/10 headache to the frontal area, states that this is a sharp pain. Believes it will go away with rest. He states he gets headaches every couple of days, but believes that they have been slightly worse since he has been hospitalized. The patient states that he has been taking his usual medications, as he is a resident at the [facility]. He is unable to give specific information in relation to his last doctor's appointment or when this was. He states that he did have a colonoscopy about 1 year ago at [facility] and believes that the results were unremarkable. He denies any fevers, chills, shortness of breath, chest pain, nausea, vomiting , diarrhea, injuries or accidents, history of bleeding disorders or blood clots , rashes, wounds, unusual muscle aches or joint aches, blood in stool, blood in urine, difficulty with urination, palpitations. C/o feeling tired prior to his recent psychiatric episode but cannot say for how long this has been happening. He states he feels depressed, but denies any out of the ordinary anxiety at this time. PAST MEDICAL HISTORY: 1. Suicidal ideation. 2. Self-harm. 3. Anxiety. 4. Major depressive disorder. 5. Angina. 6. Hypertension. 7. COPD. 8. Headaches. 9. Seizures, last noted 2 years ago per his report. 10. BPH. 11. Schizophrenia. PAST SURGICAL HISTORY: 1. Rhinoplasty in 1971. 2. Repair of undescended left testicle in 1968. 3. Cataract surgery about 1 year ago. HOME MEDICATIONS: Please note that these are per hospital records as the patient is unsure of what he takes. 1. Amlodipine 5 mg p.o. daily. 2. Magnesium oxide 400 mg p.o. at bedtime. 3. Hydralazine 25 mg p.o. t.i.d. 4. Tamsulosin 0.4 mg p.o. daily. 5. Hydroxyzine pamoate 25 mg p.o. at bedtime. 6. Aspirin 81 mg p.o. daily. 7. Levetiracetam 500 mg p.o. b.i.d. 8. Melatonin 1 tab p.o. at bedtime. 9. Advair Diskus 250/50 one puff inhaled b.i.d. 10. Pantoprazole 40 mg p.o. daily. 11. Ondansetron 8 mg p.o. q.8 hours p.r.n. 12. Acetaminophen 650 mg p.o. q.6 hours p.r.n. 13. Sertraline 100 mg p.o. daily. 14. Olanzapine 10 mg p.o. at bedtime. 15. Albuterol sulfate 1.25 mg inhaled q.6 hours. 16. Multivitamins and minerals 1 tab p.o. daily. 17. Nitroglycerin 0.4 mg sublingual q.5 minutes p.r.n. 18. Atorvastatin 40 mg p.o. daily. ALLERGIES: PENICILLIN, THORAZINE. FAMILY HISTORY: The patient states he was adopted and does not know any history of first-degree relatives. SOCIAL HISTORY: Lives at the [facility]. 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 He smokes up to a half a pack per day. He states he started smoking when he was about 12 or 13 years old. Denies any alcohol use. Denies any illicit drug use. REVIEW OF SYSTEMS: A 10-point review of systems was completed with the patient. Please see HPI for all pertinent positives and negatives. PHYSICAL EXAM: Constitutional: The patient is lying in bed, appears to be in no acute distress. Last Vital Signs: Temp 98.4, heart rate 59, respiratory rate 16, O2 sat 95% on room air, blood pressure 145/64. HEENT: PERRL. Pupils are approximately 2 mm in diameter. No scleral icterus noted. Cardiovascular: Heart rate regular. S1 and S2 present. No murmurs, rubs or gallops noted. Extremities: Pedal pulses present 2+ bilaterally. No edema. Respiratory: Lung sounds clear throughout, but diminished. Regular rhythm and effort. GI: Bowel sounds x4. Soft, nontender. Musculoskeletal: Range of motion and strength within normal limits to all extremities. Skin: Warm, dry and intact. Neuro: Alert and oriented x4. Cranial nerves grossly intact. Psych: Responds appropriately. Flat affect at times, but does engage in conversation. DIAGNOSTIC STUDIES/LAB DATA: WBC 8.7, RBC 4.73, hemoglobin 11.6, hematocrit 36 , MCV 76, MCH 25, RDW 18, platelet count 151. Sodium 138, potassium 3.6, chloride 106, BUN 15, creatinine 0.8, estimated GFR 96.4, glucose 73, hemoglobin A1c 5.7, calcium 8.9, total protein 6.2, triglycerides 100, cholesterol 101, LDL 43, HDL 38.2, TSH 3.14. UA is unremarkable. ASSESSMENT AND PLAN: Mr. Aguilera is a pleasant 69-year-old male, who has a past medical history significant for hypertension, chronic obstructive pulmonary disease, headaches, seizures, angina, benign prostatic hypertrophy, schizophrenia, anxiety, major depressive disorder and inpatient psychiatric treatment. He presented to the emergency department on 09/26/19 for a suicidal ideation. He was admitted to BSU. Hospital Medicine has been asked to evaluate him regarding his drop in H and H and MCV. DIAGNOSES: 1. History of mental health disorders and inpatient management. Presented to ED on 09/26/19 with suicidal ideation. Continue management of various mental health disorders per Psychiatry. 2. Anemia. H and H 11.6 and 36. Most recent prior values from December 2018 were within normal limits. MCV is 76, which has been declining slowly since 2016. RDW 18. The patient states he had a colonoscopy about a year ago. Order entered to obtain prior endoscopy and PCP records. There is an H and P from 11/[address] Sandoval in [place] as the patient is a resident of [facility]. CBC, iron studies, B12 and folate are ordered for tomorrow morning, EKG ordered by Dr. Archer, but is yet to be captured. Hospital Medicine will follow up on results of tomorrow's CBC and anemia studies. Depending upon results the patient may need to follow up on this issue as an outpatient, but this is to be determined. 3. Hypertension. BP is stable. Continue current medication regimen. 4. Chronic obstructive pulmonary disease. No signs or symptoms of exacerbation. Continue current medication regimen. 5. FEN: Per Psychiatry. 6. Code status: Full code. 7. DVT prophylaxis: Per Psychiatry. DISPOSITION: BSU. CONDITION: Stable but guarded. Thank you for allowing us to participate in the care of this patient. We will follow up during this admission. The plan has been discussed with my attending physician, Dr. Morocho and he agrees with this plan. BAKARI CLARKE, BOX [employer] [id number]/CPS #: [id number] MATTHIAS
[2019-09-28 08:42] LABS: Hematocrit 39 % (42-52); Hemoglobin 12.8 g/dL (14.0-18.0); Mean Corpuscular HGB Conc 33 g/dL (31-36); Mean Corpuscular Hemoglobin 25 pg (27-31); Mean Corpuscular Volume 75 fL (80-94); Mean Platelet Volume 9.5 fL (7.4-10.4); Platelet Count 163 10^3/uL (150-450); Red Blood Count 5.17 10^6 /uL (4.18-5.48); Red Cell Distribution Width 18 % (10-15)
[2019-09-28 08:44] LABS: ABS Eosinophils 0.2 10^3/ul (0-0.6); ABS Lymphocytes 1.7 10^3/ul (1.0-4.8); ABS Monocytes 0.8 10^3/ul (0-0.8); ABS Neutrophils 5.3 10^3/ul (1.5-7.7); Eosinophil % 1.9 %; Lymphocyte % 21.2 %
[2019-09-28 09:13] LABS: % Iron Saturation 6 % (15-55); Iron 26 ug/dL (50-212); Total Iron Binding Capacity 451 mcg/dL (250-450); Transferrin 322 mg/dL (203-362)
[2019-09-28 09:34] LABS: Ferritin 8.4 ng/mL (24-336)
[2019-09-28 09:38] LABS: Folate > 20.00 ng/mL (>3.99)
[2019-09-28] MEDS: OLANzapine TAB* 10 MG PO SCH (10:10)
[2019-09-28] MEDS: busPIRone TAB* 15 MG PO SCH ×2 (10:10→20:15)
[2019-09-28] MEDS: Sertraline* 100 MG TAB PO SCH (10:10)
[2019-09-28] MEDS: traMADol TAB* 50 MG PO SCH (10:10)
[2019-09-28] MEDS: levETIRAcetam TAB* 500 MG PO SCH ×2 (10:11→20:17)
[2019-09-28] MEDS: hydrALAZINE TAB* 25 MG PO SCH ×3 (10:11→20:16)
[2019-09-28] MEDS: Pantoprazole TAB * 40 MG TAB PO SCH (10:11)
[2019-09-28] MEDS: Vitamin THERAPEUTIC TAB PO SCH (10:11)
[2019-09-28] MEDS: Tamsulosin CAP* 0.4 MG PO SCH (10:11)
[2019-09-28] MEDS: Metoprolol Tartrate TAB* 25 MG PO SCH ×2 (10:11→20:18)
[2019-09-28] MEDS: Rivaroxaban TAB(*) 20 MG TAB PO SCH (10:12)
--- NOTE | 2019-09-28 10:15 | PN ---
Subjective - Subjective Date of Service: 09/28/19 Service Type: 09053 Hosp care 35 min high complexity Subjective: Nursing Report: No behavioral incidents. mostly in his room. CC: "Alright" Patient was seen and evaluated in his room. The patient reported he feels okay and is requesting something to help him sleep. The patient doesnt interact much with others. He reported having adequate appetite. Per nursing no behavioral issues or overnight events reported. Patient reported that he is tolerating medications without side effects. Objective - General Observations Appearance: Disheveled Appears Stated Age: Yes Stature: Thin Posture: Slumped Eye Contact: Avoidant Behavior/Activity: Slowed - Interaction Observations Attitude Towards Examiner: Cooperative Stated Mood: Dysphoric Affect: Restricted Speech Pattern/Tone: Quiet Volume Thought Process: Impoverished Perception: WNL Thought Content: Self-Deprecatory Thought Process: Lethality: Passive Wish Hallucination Type: None Delusion Type: None - Cognitive Function Orientation: A&O x 4 Level of Consciousness: Awake - Medication Compliance Cooperative with Inpatient Medication Regimen: Yes - Group Participation Participates in Group Activities: No Assessment - Assessment Merits Inpatient Hospitalization: For Immediate Safety Clinical Impression: 69 year old with history of Major depressive disorder with plan to cut wrist with razor came to the hospital and was admitted to the B[facility] at [facility]. Plan - Plan Treatment Plan: Name: FRANCA BERUMEN Birthdate: 1950 [id number] Plan #Q15 minute observation # The patient requires inpatient admission at this time to assure safety, receive treatment and work toward stabilization. # Collaboration with Program Schedule Clerk Altagracia Henriquez # Fall precautions/ seizure precautions #Order for walker and PT # Continue Zoloft to 100mg po qhs. # Hospital consult completed and appreciate recommendations # Obtain Collateral information from the falls home and confirm that he can return # Start remeron 7.5mg qhs #EKG Ordered for being on QTc prolonging treatment # Nicotine replacement provided #Goals before discharge include: Reduce suicidal ideation # Tentative Discharge Wednesday Sodium 138 mmol/L (135-145) 09/26/19 03:57 Potassium 3.6 mmol/L (3.5-5.0) 09/26/19 03:57 BUN 15 mg/dL (6-24) 09/26/19 03:57 Creatinine 0.80 mg/dL (0.67-1.17) 09/26/19 03:57 Hemoglobin A1c 5.7 % (4.0-5.6) H 09/27/19 07:35 Calcium 8.9 mg/dL (8.6-10.3) 09/26/19 03:57 AST 14 U/L (13-39) 09/26/19 03:57 ALT 12 U/L (7-52) 09/26/19 03:57 Triglycerides 100 mg/dL 09/27/19 07:35 Cholesterol 101 mg/dL 09/27/19 07:35 LDL Cholesterol 43 mg/dL 09/27/19 07:35 09/26/19 09/26/19 09/26/19 03:57 03:57 04:00 WBC 8.7 RBC 4.73 Hgb 11.6 L Hct 36 L MCV 76 L MCH 25 L MCHC 32 RDW 18 H Plt Count 151 MPV 9.4 Neut % (Auto) 61.3 Lymph % (Auto) 24.8 [place] % (Auto) 12.0 Eos % (Auto) 1.7 Baso % (Auto) 0.2 Absolute Neuts (auto) 5.3 Absolute Lymphs (auto) 2.2 Absolute Monos (auto) 1.0 H Absolute Eos (auto) 0.1 Absolute Basos (auto) 0.0 Absolute Nucleated RBC 0.0 Nucleated RBC % 0.1 Sodium 138 Potassium 3.6 Chloride 106 Carbon Dioxide 26 Anion Gap 6 BUN 15 Creatinine 0.80 Est GFR ( Amer) 116.7 Est GFR (Non-Af Amer) 96.4 BUN/Creatinine Ratio 18.8 Glucose 73 Hemoglobin A1c Calcium 8.9 Iron TIBC % Saturation Unsat Iron Binding Transferrin Ferritin Total Bilirubin 0.20 AST 14 ALT 12 Alkaline Phosphatase 67 Total Protein 6.2 L Albumin 4.0 Globulin 2.2 Albumin/Globulin Ratio 1.8 Triglycerides Cholesterol LDL Cholesterol HDL Cholesterol Vitamin B12 Folate TSH 3.14 Urine Color Straw Urine Appearance Clear Urine pH 6.0 Ur Specific [place] 1.005 L Urine Protein Negative Urine Ketones Negative Urine Blood Negative Urine Nitrate Negative Urine Bilirubin Negative Urine Urobilinogen Negative Ur Leukocyte Esterase Negative Urine Glucose Negative Salicylates < 2.50 Urine Opiates Screen Acetaminophen < 15 Ur Barbiturates Screen Ur Phencyclidine Scrn Ur Amphetamines Screen U Benzodiazepines Scrn Urine Cocaine Screen U Cannabinoids Screen Serum Alcohol < 10 02/04/20 02/05/20 02/05/20 04:00 07:35 07:35 WBC RBC Hgb Hct MCV MCH MCHC RDW Plt Count MPV Neut % (Auto) Lymph % (Auto) [place] % (Auto) Eos % (Auto) Baso % (Auto) Absolute Neuts (auto) Absolute Lymphs (auto) Absolute Monos (auto) Absolute Eos (auto) Absolute Basos (auto) Absolute Nucleated RBC Nucleated RBC % Sodium Potassium Chloride Carbon Dioxide Anion Gap BUN Creatinine Est GFR ( Amer) Est GFR (Non-Af Amer) BUN/Creatinine Ratio Glucose Hemoglobin A1c 5.7 H Calcium Iron TIBC % Saturation Unsat Iron Binding Transferrin Ferritin Total Bilirubin AST ALT Alkaline Phosphatase Total Protein Albumin Globulin Albumin/Globulin Ratio Triglycerides 100 Cholesterol 101 LDL Cholesterol 43 HDL Cholesterol 38.2 Vitamin B12 Folate TSH Urine Color Urine Appearance Urine pH Ur Specific [place] Urine Protein Urine Ketones Urine Blood Urine Nitrate Urine Bilirubin Urine Urobilinogen Ur Leukocyte Esterase Urine Glucose Salicylates Urine Opiates Screen None detected Acetaminophen Ur Barbiturates Screen None detected Ur Phencyclidine Scrn None detected Ur Amphetamines Screen None detected U Benzodiazepines Scrn None detected Urine Cocaine Screen None detected U Cannabinoids Screen None detected Serum Alcohol 09/28/19 09/28/19 08:16 08:16 WBC 8.0 RBC 5.17 Hgb 12.8 L Hct 39 L MCV 75 L MCH 25 L MCHC 33 RDW 18 H Plt Count 163 MPV 9.5 Neut % (Auto) 66.2 Lymph % (Auto) 21.2 [place] % (Auto) 10.4 Eos % (Auto) 1.9 Baso % (Auto) 0.3 Absolute Neuts (auto) 5.3 Absolute Lymphs (auto) 1.7 Absolute Monos (auto) 0.8 Absolute Eos (auto) 0.2 Absolute Basos (auto) 0.0 Absolute Nucleated RBC 0.0 Nucleated RBC % 0.0 Sodium Potassium Chloride Carbon Dioxide Anion Gap BUN Creatinine Est GFR ( Amer) Est GFR (Non-Af Amer) BUN/Creatinine Ratio Glucose Hemoglobin A1c Calcium Iron 26 L TIBC 451 H % Saturation 6 L Unsat Iron Binding < 436 Transferrin 322 Ferritin 8.4 L Total Bilirubin AST ALT Alkaline Phosphatase Total Protein Albumin Globulin Albumin/Globulin Ratio Triglycerides Cholesterol LDL Cholesterol HDL Cholesterol Vitamin B12 558 Folate > 20.00 TSH Urine Color Urine Appearance Urine pH Ur Specific [place] Urine Protein Urine Ketones Urine Blood Urine Nitrate Urine Bilirubin Urine Urobilinogen Ur Leukocyte Esterase Urine Glucose Salicylates Urine Opiates Screen Acetaminophen Ur Barbiturates Screen Ur Phencyclidine Scrn Ur Amphetamines Screen U Benzodiazepines Scrn Urine Cocaine Screen U Cannabinoids Screen Serum Alcohol Continued Medication Management: Continue Outpt Medication Medications: Current Medications Acetaminophen (Tylenol Tab*) 325 mg PO Q6H PRN PRN Reason: PAIN - MILD Last Admin: 09/26/19 18:20 Dose: 325 mg Al Hydrox/Mg Hydrox/Simethicone (Maalox Plus*) 30 ml PO Q4H PRN PRN Reason: INDIGESTION Buspirone HCl (Buspar Tab *) 15 mg PO BID [facility] Last Admin: 09/27/19 20:25 Dose: 15 mg Ferrous Sulfate (Ferrous Sulfate Tab*) 325 mg PO DAILY [facility] Hydralazine HCl (Apresoline Tab*) 25 mg PO TID [facility] Last Admin: 09/27/19 20:25 Dose: 25 mg Levetiracetam (Keppra Tab*) 1,000 mg PO BID [facility] Last Admin: 09/27/19 20:24 Dose: 1,000 mg Metoprolol Tartrate (Lopressor Tab*) 25 mg PO BID [facility] Last Admin: 09/27/19 20:24 Dose: 25 mg Mirtazapine (Remeron Tab*) 7.5 mg PO BEDTIME [facility] Mometasone Furoate/Formoterol Fumar (Dulera 200/5 Mdi*) 2 puff INH BID [facility] Last Admin: 09/27/19 20:26 Dose: 2 puff Multivitamins (Theragran Tab*) 1 tab PO DAILY [facility] Last Admin: 09/27/19 09:30 Dose: 1 tab Nicotine Polacrilex (Nicotine Gum*) 4 mg PO Q2H PRN PRN Reason: CRAVING Nitroglycerin (Nitroglycerin Tab 0.4 Mg*) 0.4 mg SL Q5M PRN PRN Reason: ANGINA Olanzapine (Zyprexa Tab*) 10 mg PO DAILY [facility] Last Admin: 09/27/19 09:29 Dose: 10 mg Pantoprazole Sodium (Protonix Tab*) 40 mg PO DAILY [facility] Last Admin: 09/27/19 09:30 Dose: 40 mg Rivaroxaban (Xarelto(*)) 20 mg PO DAILY [facility] Last Admin: 09/27/19 09:31 Dose: 20 mg Sertraline HCl (Zoloft*) 100 mg PO DAILY [facility] Tamsulosin HCl (Flomax Cap*) 0.4 mg PO DAILY [facility] Last Admin: 09/27/19 09:30 Dose: 0.4 mg Tramadol HCl (Ultram*) 50 mg PO DAILY [facility] Last Admin: 09/27/19 09:32 Dose: 50 mg - Discharge Plan Discharge Plan: Inpatient Hospitalization
[2019-09-28] MEDS ORDERED: Nicotine PATCH 21 MG/24 HR* PATCH ONE (10:22)
[2019-09-28] MEDS: Ferrous Sulfate TAB* 325 MG PO SCH (10:23)
[2019-09-28] MEDS: Nicotine PATCH 21 MG/24 HR* PATCH TRANSDERM SCH (10:23)
[2019-09-28] MEDS: Mometasone/Formoter 200/5 MDI INH SCH ×2 (10:23→20:21)
--- NOTE | 2019-09-28 15:36 | PN ---
Hospitalist Progress Note Date of Service: 09/28/19 Following up on Mr. Aguilera's laboratory data, which suggests iron deficiency anemia. Recommendations: -daily iron supplementation -screening stool for occult blood -colonoscopy in the outpatient setting AT THIS TIME, THE HOSPITALIST TEAM WILL SIGN OFF ON MR. AGUILERA. THANK YOU FOR INVOLVING US IN HIS CARE, AND PLEASE DO NOT HESITATE TO RE-CONSULT FOR ANY CONCERNS.
[2019-09-28] MEDS: Mirtazapine TAB* 15 MG PO SCH (20:18)
[2019-09-28] MEDS: Nicotine Patch Removal NOTE PATCH OFF SCH (20:21)
--- NOTE | 2019-09-29 10:00 | PN ---
Subjective - Subjective Date of Service: 09/29/19 Service Type: 03364 Hosp care 35 min high complexity Subjective: Nursing Report: Patient mostly in his room. Attended some groups CC: "OKAY" Patient was seen and evaluated in his room. The patient reported he feels safe on the unit. He reported getting up and attending some groups. He reported adequate appetite and sleep. Per nursing no behavioral issues or overnight events reported. Patient reported that he is tolerating medications without side effects. Objective - General Observations Appearance: Disheveled Appears Stated Age: Yes Stature: Thin Posture: WNL Eye Contact: Average Behavior/Activity: Slowed - Interaction Observations Attitude Towards Examiner: Cooperative Stated Mood: Dysphoric Affect: Restricted Speech Pattern/Tone: Garbled Thought Process: Coherent Perception: WNL Thought Content: WNL Hallucination Type: Denies Delusion Type: Denies - Cognitive Function Orientation: A&O x 4 Level of Consciousness: Awake - Medication Compliance Cooperative with Inpatient Medication Regimen: Yes - Group Participation Participates in Group Activities: Partial Assessment - Assessment Merits Inpatient Hospitalization: For Immediate Safety Clinical Impression: 69 year old with history of Major depressive disorder with plan to cut wrist with razor came to the hospital and was admitted to the [facility] at [facility]. Plan - Plan Treatment Plan: Name: FRANCA BERUMEN Birthdate: 1950 [id number] Plan #Q30 minute observation with staff pass # The patient requires inpatient admission at this time to assure safety, receive treatment and work toward stabilization. # Collaboration with Development Officer Altagracia Henriquez # Fall precautions/ seizure precautions #Order for walker and PT #EKG QTc 416 # Continue Zoloft 100mg po qhs. # Hospital consult completed and appreciate recommendations # [facility] and confirm that he can return # Continue remeron 7.5mg qhs # Nicotine replacement provided #Goals before discharge include: Reduce suicidal ideation # Tentative Discharge Wednesday Sodium 138 mmol/L (135-145) 09/26/19 03:57 Potassium 3.6 mmol/L (3.5-5.0) 09/26/19 03:57 BUN 15 mg/dL (6-24) 09/26/19 03:57 Creatinine 0.80 mg/dL (0.67-1.17) 09/26/19 03:57 Hemoglobin A1c 5.7 % (4.0-5.6) H 09/27/19 07:35 Calcium 8.9 mg/dL (8.6-10.3) 09/26/19 03:57 AST 14 U/L (13-39) 09/26/19 03:57 ALT 12 U/L (7-52) 09/26/19 03:57 Triglycerides 100 mg/dL 09/27/19 07:35 Cholesterol 101 mg/dL 09/27/19 07:35 LDL Cholesterol 43 mg/dL 09/27/19 07:35 09/26/19 09/26/19 09/26/19 03:57 03:57 04:00 WBC 8.7 RBC 4.73 Hgb 11.6 L Hct 36 L MCV 76 L MCH 25 L MCHC 32 RDW 18 H Plt Count 151 MPV 9.4 Neut % (Auto) 61.3 Lymph % (Auto) 24.8 [place] % (Auto) 12.0 Eos % (Auto) 1.7 Baso % (Auto) 0.2 Absolute Neuts (auto) 5.3 Absolute Lymphs (auto) 2.2 Absolute Monos (auto) 1.0 H Absolute Eos (auto) 0.1 Absolute Basos (auto) 0.0 Absolute Nucleated RBC 0.0 Nucleated RBC % 0.1 Sodium 138 Potassium 3.6 Chloride 106 Carbon Dioxide 26 Anion Gap 6 BUN 15 Creatinine 0.80 Est GFR ( Amer) 116.7 Est GFR (Non-Af Amer) 96.4 BUN/Creatinine Ratio 18.8 Glucose 73 Hemoglobin A1c Calcium 8.9 Iron TIBC % Saturation Unsat Iron Binding Transferrin Ferritin Total Bilirubin 0.20 AST 14 ALT 12 Alkaline Phosphatase 67 Total Protein 6.2 L Albumin 4.0 Globulin 2.2 Albumin/Globulin Ratio 1.8 Triglycerides Cholesterol LDL Cholesterol HDL Cholesterol Vitamin B12 Folate TSH 3.14 Urine Color Straw Urine Appearance Clear Urine pH 6.0 Ur Specific [place] 1.005 L Urine Protein Negative Urine Ketones Negative Urine Blood Negative Urine Nitrate Negative Urine Bilirubin Negative Urine Urobilinogen Negative Ur Leukocyte Esterase Negative Urine Glucose Negative Salicylates < 2.50 Urine Opiates Screen Acetaminophen < 15 Ur Barbiturates Screen Ur Phencyclidine Scrn Ur Amphetamines Screen U Benzodiazepines Scrn Urine Cocaine Screen U Cannabinoids Screen Serum Alcohol < 10 02/04/20 02/05/20 02/05/20 04:00 07:35 07:35 WBC RBC Hgb Hct MCV MCH MCHC RDW Plt Count MPV Neut % (Auto) Lymph % (Auto) [place] % (Auto) Eos % (Auto) Baso % (Auto) Absolute Neuts (auto) Absolute Lymphs (auto) Absolute Monos (auto) Absolute Eos (auto) Absolute Basos (auto) Absolute Nucleated RBC Nucleated RBC % Sodium Potassium Chloride Carbon Dioxide Anion Gap BUN Creatinine Est GFR ( Amer) Est GFR (Non-Af Amer) BUN/Creatinine Ratio Glucose Hemoglobin A1c 5.7 H Calcium Iron TIBC % Saturation Unsat Iron Binding Transferrin Ferritin Total Bilirubin AST ALT Alkaline Phosphatase Total Protein Albumin Globulin Albumin/Globulin Ratio Triglycerides 100 Cholesterol 101 LDL Cholesterol 43 HDL Cholesterol 38.2 Vitamin B12 Folate TSH Urine Color Urine Appearance Urine pH Ur Specific [place] Urine Protein Urine Ketones Urine Blood Urine Nitrate Urine Bilirubin Urine Urobilinogen Ur Leukocyte Esterase Urine Glucose Salicylates Urine Opiates Screen None detected Acetaminophen Ur Barbiturates Screen None detected Ur Phencyclidine Scrn None detected Ur Amphetamines Screen None detected U Benzodiazepines Scrn None detected Urine Cocaine Screen None detected U Cannabinoids Screen None detected Serum Alcohol 09/28/19 09/28/19 08:16 08:16 WBC 8.0 RBC 5.17 Hgb 12.8 L Hct 39 L MCV 75 L MCH 25 L MCHC 33 RDW 18 H Plt Count 163 MPV 9.5 Neut % (Auto) 66.2 Lymph % (Auto) 21.2 [place] % (Auto) 10.4 Eos % (Auto) 1.9 Baso % (Auto) 0.3 Absolute Neuts (auto) 5.3 Absolute Lymphs (auto) 1.7 Absolute Monos (auto) 0.8 Absolute Eos (auto) 0.2 Absolute Basos (auto) 0.0 Absolute Nucleated RBC 0.0 Nucleated RBC % 0.0 Sodium Potassium Chloride Carbon Dioxide Anion Gap BUN Creatinine Est GFR ( Amer) Est GFR (Non-Af Amer) BUN/Creatinine Ratio Glucose Hemoglobin A1c Calcium Iron 26 L TIBC 451 H % Saturation 6 L Unsat Iron Binding < 436 Transferrin 322 Ferritin 8.4 L Total Bilirubin AST ALT Alkaline Phosphatase Total Protein Albumin Globulin Albumin/Globulin Ratio Triglycerides Cholesterol LDL Cholesterol HDL Cholesterol Vitamin B12 558 Folate > 20.00 TSH Urine Color Urine Appearance Urine pH Ur Specific [place] Urine Protein Urine Ketones Urine Blood Urine Nitrate Urine Bilirubin Urine Urobilinogen Ur Leukocyte Esterase Urine Glucose Salicylates Urine Opiates Screen Acetaminophen Ur Barbiturates Screen Ur Phencyclidine Scrn Ur Amphetamines Screen U Benzodiazepines Scrn Urine Cocaine Screen U Cannabinoids Screen Serum Alcohol Continued Medication Management: Continue Outpt Medication Medications: Current Medications Acetaminophen (Tylenol Tab*) 325 mg PO Q6H PRN PRN Reason: PAIN - MILD Last Admin: 09/26/19 18:20 Dose: 325 mg Al Hydrox/Mg Hydrox/Simethicone (Maalox Plus*) 30 ml PO Q4H PRN PRN Reason: INDIGESTION Buspirone HCl (Buspar Tab *) 15 mg PO BID [facility] Last Admin: 09/28/19 20:15 Dose: 15 mg Ferrous Sulfate (Ferrous Sulfate Tab*) 325 mg PO DAILY [facility] Last Admin: 09/28/19 10:23 Dose: 325 mg Hydralazine HCl (Apresoline Tab*) 25 mg PO TID [facility] Last Admin: 09/28/19 20:16 Dose: 25 mg Levetiracetam (Keppra Tab*) 1,000 mg PO BID [facility] Last Admin: 09/28/19 20:17 Dose: 1,000 mg Metoprolol Tartrate (Lopressor Tab*) 25 mg PO BID [facility] Last Admin: 09/28/19 20:18 Dose: 25 mg Mirtazapine (Remeron Tab*) 7.5 mg PO BEDTIME [facility] Last Admin: 09/28/19 20:18 Dose: 7.5 mg Mometasone Furoate/Formoterol Fumar (Dulera 200/5 Mdi*) 2 puff INH BID [facility] Last Admin: 09/28/19 20:21 Dose: 2 puff Multivitamins (Theragran Tab*) 1 tab PO DAILY [facility] Last Admin: 09/28/19 10:11 Dose: 1 tab Nicotine (Nicotine Patch 21 Mg/24 Hr*) 1 patch TRANSDERM DAILY@0800 [facility] Last Admin: 09/28/19 10:23 Dose: 1 patch Nicotine Polacrilex (Nicotine Gum*) 4 mg PO Q2H PRN PRN Reason: CRAVING Nitroglycerin (Nitroglycerin Tab 0.4 Mg*) 0.4 mg SL Q5M PRN PRN Reason: ANGINA Olanzapine (Zyprexa Tab*) 10 mg PO DAILY [facility] Last Admin: 09/28/19 10:10 Dose: 10 mg Pantoprazole Sodium (Protonix Tab*) 40 mg PO DAILY [facility] Last Admin: 09/28/19 10:11 Dose: 40 mg Pharmacy Profile Note (Nicotine Patch Removal Note*) 1 note PATCH OFF 0600 [facility] Last Admin: 09/28/19 20:21 Dose: 1 note Rivaroxaban (Xarelto(*)) 20 mg PO DAILY [facility] Last Admin: 09/28/19 10:12 Dose: 20 mg Sertraline HCl (Zoloft*) 100 mg PO DAILY [facility] Last Admin: 09/28/19 10:10 Dose: 100 mg Tamsulosin HCl (Flomax Cap*) 0.4 mg PO DAILY [facility] Last Admin: 09/28/19 10:11 Dose: 0.4 mg Tramadol HCl (Ultram*) 50 mg PO DAILY [facility] Last Admin: 09/28/19 10:10 Dose: 50 mg - Discharge Plan Discharge Plan: Inpatient Hospitalization
[2019-09-29] MEDS: Pantoprazole TAB * 40 MG TAB PO SCH (10:10)
[2019-09-29] MEDS: Tamsulosin CAP* 0.4 MG PO SCH (10:10)
[2019-09-29] MEDS: busPIRone TAB* 15 MG PO SCH ×2 (10:10→20:40)
[2019-09-29] MEDS: traMADol TAB* 50 MG PO SCH (10:11)
[2019-09-29] MEDS: levETIRAcetam TAB* 500 MG PO SCH ×2 (10:11→20:42)
[2019-09-29] MEDS: Ferrous Sulfate TAB* 325 MG PO SCH (10:12)
[2019-09-29] MEDS: Metoprolol Tartrate TAB* 25 MG PO SCH ×2 (10:12→20:42)
[2019-09-29] MEDS: OLANzapine TAB* 10 MG PO SCH (10:12)
[2019-09-29] MEDS: Vitamin THERAPEUTIC TAB PO SCH (10:12)
[2019-09-29] MEDS: hydrALAZINE TAB* 25 MG PO SCH ×2 (10:13→20:43)
[2019-09-29] MEDS: Rivaroxaban TAB(*) 20 MG TAB PO SCH (10:13)
[2019-09-29] MEDS: Sertraline* 100 MG TAB PO SCH (10:13)
[2019-09-29] MEDS: Mometasone/Formoter 200/5 MDI INH SCH ×2 (10:14→20:39)
[2019-09-29] MEDS: Nicotine Patch Removal NOTE PATCH OFF SCH (10:14)
[2019-09-29] MEDS: Nicotine PATCH 21 MG/24 HR* PATCH TRANSDERM SCH (10:14)
[2019-09-29] MEDS: Mirtazapine TAB* 15 MG PO SCH (20:44)
[2019-09-30] MEDS: levETIRAcetam TAB* 500 MG PO SCH ×2 (08:29→20:22)
[2019-09-30] MEDS: traMADol TAB* 50 MG PO SCH (08:30)
[2019-09-30] MEDS: busPIRone TAB* 15 MG PO SCH ×2 (08:30→20:23)
[2019-09-30] MEDS: Ferrous Sulfate TAB* 325 MG PO SCH (08:30)
[2019-09-30] MEDS: Rivaroxaban TAB(*) 20 MG TAB PO SCH (08:31)
[2019-09-30] MEDS: Sertraline* 100 MG TAB PO SCH (08:31)
[2019-09-30] MEDS: OLANzapine TAB* 10 MG PO SCH (08:31)
[2019-09-30] MEDS: Tamsulosin CAP* 0.4 MG PO SCH (08:31)
[2019-09-30] MEDS: Pantoprazole TAB * 40 MG TAB PO SCH (08:31)
[2019-09-30] MEDS: Vitamin THERAPEUTIC TAB PO SCH (08:32)
[2019-09-30] MEDS: Metoprolol Tartrate TAB* 25 MG PO SCH ×2 (08:32→20:23)
[2019-09-30] MEDS: Mometasone/Formoter 200/5 MDI INH SCH ×2 (08:33→20:21)
[2019-09-30] MEDS: Nicotine PATCH 21 MG/24 HR* PATCH TRANSDERM SCH (08:33)
[2019-09-30] MEDS: hydrALAZINE TAB* 25 MG PO SCH ×2 (08:35→20:23)
[2019-09-30] MEDS: Nicotine Patch Removal NOTE PATCH OFF SCH (08:35)
--- NOTE | 2019-09-30 15:02 | PN ---
Subjective - Subjective Date of Service: 09/30/19 Service Type: 12301 Hosp care 15 min low complexity Subjective: Franca is seen in weekend coverage for Dr. Archer. The patient is sleeping in his room in the middle of the afternoon and complains that he can't sleep at night. "I need my sleep meds doubled" he says without irony. The patient thinks he is "sort of" having suicidal ideations but says that he should be safe to [facility]. He is mostly seculsive to himself and tends not to participate in milieu activities such as groups. Objective - General Observations Appearance: Disheveled Appears Stated Age: Yes Stature: Thin Posture: WNL Eye Contact: Average Behavior/Activity: WNL - Interaction Observations Attitude Towards Examiner: Cooperative Stated Mood: Dysphoric Affect: Full Speech Pattern/Tone: Delayed, Quiet Volume Thought Process: Coherent Thought Content: Depressive Thought Process: Lethality: Passive Wish Hallucination Type: None Delusion Type: None - Cognitive Function Orientation: A&O x 4 Level of Consciousness: Awake Cognition: WNL Estimated Intelligence: Normal Insight: WNL Judgment Within Normal Limits: Yes - Medication Compliance Cooperative with Inpatient Medication Regimen: Yes - Group Participation Participates in Group Activities: No Assessment - Assessment Merits Inpatient Hospitalization: For Immediate Safety, For Stabilization Clinical Impression: 69 year old with history of Major depressive disorder with plan to cut wrist with razor came to the hospital and was admitted to the [facility] at [facility]. Plan - Plan Treatment Plan: Name: FRANCA BERUMEN Birthdate: 1950 [id number] Plan #Q30 minute observation with staff pass # The patient requires inpatient admission at this time to assure safety, receive treatment and work toward stabilization. # Collaboration with Music Intern Altagracia Henriquez # Fall precautions/ seizure precautions #Order for walker and PT #EKG QTc 416 # Continue Zoloft 100mg po qhs. # Hospital consult completed and appreciate recommendations # [facility] and confirm that he can return # Continue remeron 7.5mg qhs # Nicotine replacement provided #Goals before discharge include: Reduce suicidal ideation # Tentative Discharge Wednesday Sodium 138 mmol/L (135-145) 09/26/19 03:57 Potassium 3.6 mmol/L (3.5-5.0) 09/26/19 03:57 BUN 15 mg/dL (6-24) 09/26/19 03:57 Creatinine 0.80 mg/dL (0.67-1.17) 09/26/19 03:57 Hemoglobin A1c 5.7 % (4.0-5.6) H 09/27/19 07:35 Calcium 8.9 mg/dL (8.6-10.3) 09/26/19 03:57 AST 14 U/L (13-39) 09/26/19 03:57 ALT 12 U/L (7-52) 09/26/19 03:57 Triglycerides 100 mg/dL 09/27/19 07:35 Cholesterol 101 mg/dL 09/27/19 07:35 LDL Cholesterol 43 mg/dL 09/27/19 07:35 09/26/19 09/26/19 09/26/19 03:57 03:57 04:00 WBC 8.7 RBC 4.73 Hgb 11.6 L Hct 36 L MCV 76 L MCH 25 L MCHC 32 RDW 18 H Plt Count 151 MPV 9.4 Neut % (Auto) 61.3 Lymph % (Auto) 24.8 [place] % (Auto) 12.0 Eos % (Auto) 1.7 Baso % (Auto) 0.2 Absolute Neuts (auto) 5.3 Absolute Lymphs (auto) 2.2 Absolute Monos (auto) 1.0 H Absolute Eos (auto) 0.1 Absolute Basos (auto) 0.0 Absolute Nucleated RBC 0.0 Nucleated RBC % 0.1 Sodium 138 Potassium 3.6 Chloride 106 Carbon Dioxide 26 Anion Gap 6 BUN 15 Creatinine 0.80 Est GFR ( Amer) 116.7 Est GFR (Non-Af Amer) 96.4 BUN/Creatinine Ratio 18.8 Glucose 73 Hemoglobin A1c Calcium 8.9 Iron TIBC % Saturation Unsat Iron Binding Transferrin Ferritin Total Bilirubin 0.20 AST 14 ALT 12 Alkaline Phosphatase 67 Total Protein 6.2 L Albumin 4.0 Globulin 2.2 Albumin/Globulin Ratio 1.8 Triglycerides Cholesterol LDL Cholesterol HDL Cholesterol Vitamin B12 Folate TSH 3.14 Urine Color Straw Urine Appearance Clear Urine pH 6.0 Ur Specific [place] 1.005 L Urine Protein Negative Urine Ketones Negative Urine Blood Negative Urine Nitrate Negative Urine Bilirubin Negative Urine Urobilinogen Negative Ur Leukocyte Esterase Negative Urine Glucose Negative Salicylates < 2.50 Urine Opiates Screen Acetaminophen < 15 Ur Barbiturates Screen Ur Phencyclidine Scrn Ur Amphetamines Screen U Benzodiazepines Scrn Urine Cocaine Screen U Cannabinoids Screen Serum Alcohol < 10 09/26/19 09/27/19 09/27/19 04:00 07:35 07:35 WBC RBC Hgb Hct MCV MCH MCHC RDW Plt Count MPV Neut % (Auto) Lymph % (Auto) [place] % (Auto) Eos % (Auto) Baso % (Auto) Absolute Neuts (auto) Absolute Lymphs (auto) Absolute Monos (auto) Absolute Eos (auto) Absolute Basos (auto) Absolute Nucleated RBC Nucleated RBC % Sodium Potassium Chloride Carbon Dioxide Anion Gap BUN Creatinine Est GFR ( Amer) Est GFR (Non-Af Amer) BUN/Creatinine Ratio Glucose Hemoglobin A1c 5.7 H Calcium Iron TIBC % Saturation Unsat Iron Binding Transferrin Ferritin Total Bilirubin AST ALT Alkaline Phosphatase Total Protein Albumin Globulin Albumin/Globulin Ratio Triglycerides 100 Cholesterol 101 LDL Cholesterol 43 HDL Cholesterol 38.2 Vitamin B12 Folate TSH Urine Color Urine Appearance Urine pH Ur Specific [place] Urine Protein Urine Ketones Urine Blood Urine Nitrate Urine Bilirubin Urine Urobilinogen Ur Leukocyte Esterase Urine Glucose Salicylates Urine Opiates Screen None detected Acetaminophen Ur Barbiturates Screen None detected Ur Phencyclidine Scrn None detected Ur Amphetamines Screen None detected U Benzodiazepines Scrn None detected Urine Cocaine Screen None detected U Cannabinoids Screen None detected Serum Alcohol 09/28/19 09/28/19 08:16 08:16 WBC 8.0 RBC 5.17 Hgb 12.8 L Hct 39 L MCV 75 L MCH 25 L MCHC 33 RDW 18 H Plt Count 163 MPV 9.5 Neut % (Auto) 66.2 Lymph % (Auto) 21.2 [place] % (Auto) 10.4 Eos % (Auto) 1.9 Baso % (Auto) 0.3 Absolute Neuts (auto) 5.3 Absolute Lymphs (auto) 1.7 Absolute Monos (auto) 0.8 Absolute Eos (auto) 0.2 Absolute Basos (auto) 0.0 Absolute Nucleated RBC 0.0 Nucleated RBC % 0.0 Sodium Potassium Chloride Carbon Dioxide Anion Gap BUN Creatinine Est GFR ( Amer) Est GFR (Non-Af Amer) BUN/Creatinine Ratio Glucose Hemoglobin A1c Calcium Iron 26 L TIBC 451 H % Saturation 6 L Unsat Iron Binding < 436 Transferrin 322 Ferritin 8.4 L Total Bilirubin AST ALT Alkaline Phosphatase Total Protein Albumin Globulin Albumin/Globulin Ratio Triglycerides Cholesterol LDL Cholesterol HDL Cholesterol Vitamin B12 558 Folate > 20.00 TSH Urine Color Urine Appearance Urine pH Ur Specific [place] Urine Protein Urine Ketones Urine Blood Urine Nitrate Urine Bilirubin Urine Urobilinogen Ur Leukocyte Esterase Urine Glucose Salicylates Urine Opiates Screen Acetaminophen Ur Barbiturates Screen Ur Phencyclidine Scrn Ur Amphetamines Screen U Benzodiazepines Scrn Urine Cocaine Screen U Cannabinoids Screen Serum Alcohol Continued Medication Management: Different Medication Medications: Current Medications Acetaminophen (Tylenol Tab*) 325 mg PO Q6H PRN PRN Reason: PAIN - MILD Last Admin: 09/26/19 18:20 Dose: 325 mg Al Hydrox/Mg Hydrox/Simethicone (Maalox Plus*) 30 ml PO Q4H PRN PRN Reason: INDIGESTION Buspirone HCl (Buspar Tab *) 15 mg PO BID [facility] Last Admin: 09/30/19 08:30 Dose: 15 mg Ferrous Sulfate (Ferrous Sulfate Tab*) 325 mg PO DAILY [facility] Last Admin: 09/30/19 08:30 Dose: 325 mg Hydralazine HCl (Apresoline Tab*) 25 mg PO TID [facility] Last Admin: 09/30/19 08:35 Dose: 25 mg Levetiracetam (Keppra Tab*) 1,000 mg PO BID [facility] Last Admin: 09/30/19 08:29 Dose: 1,000 mg Metoprolol Tartrate (Lopressor Tab*) 25 mg PO BID [facility] Last Admin: 09/30/19 08:32 Dose: 25 mg Mirtazapine (Remeron Tab*) 7.5 mg PO BEDTIME [facility] Last Admin: 09/29/19 20:44 Dose: 7.5 mg Mometasone Furoate/Formoterol Fumar (Dulera 200/5 Mdi*) 2 puff INH BID [facility] Last Admin: 09/30/19 08:33 Dose: 2 puff Multivitamins (Theragran Tab*) 1 tab PO DAILY [facility] Last Admin: 09/30/19 08:32 Dose: 1 tab Nicotine (Nicotine Patch 21 Mg/24 Hr*) 1 patch TRANSDERM DAILY@0800 [facility] Last Admin: 09/30/19 08:33 Dose: 1 patch Nicotine Polacrilex (Nicotine Gum*) 4 mg PO Q2H PRN PRN Reason: CRAVING Nitroglycerin (Nitroglycerin Tab 0.4 Mg*) 0.4 mg SL Q5M PRN PRN Reason: ANGINA Olanzapine (Zyprexa Tab*) 10 mg PO DAILY [facility] Last Admin: 09/30/19 08:31 Dose: 10 mg Pantoprazole Sodium (Protonix Tab*) 40 mg PO DAILY [facility] Last Admin: 09/30/19 08:31 Dose: 40 mg Pharmacy Profile Note (Nicotine Patch Removal Note*) 1 note PATCH OFF 0600 [facility] Last Admin: 09/30/19 08:35 Dose: 1 note Rivaroxaban (Xarelto(*)) 20 mg PO DAILY [facility] Last Admin: 09/30/19 08:31 Dose: 20 mg Sertraline HCl (Zoloft*) 100 mg PO DAILY [facility] Last Admin: 09/30/19 08:31 Dose: 100 mg Tamsulosin HCl (Flomax Cap*) 0.4 mg PO DAILY [facility] Last Admin: 09/30/19 08:31 Dose: 0.4 mg Tramadol HCl (Ultram*) 50 mg PO DAILY [facility] Last Admin: 09/30/19 08:30 Dose: 50 mg - Discharge Plan Discharge Plan: Inpatient Hospitalization
[2019-09-30] MEDS: Mirtazapine TAB* 15 MG PO SCH (20:21)
[2019-10-01] MEDS: hydrALAZINE TAB* 25 MG PO SCH ×4 (01:08→20:14)
[2019-10-01] MEDS: Mometasone/Formoter 200/5 MDI INH SCH ×2 (09:40→20:16)
[2019-10-01] MEDS: levETIRAcetam TAB* 500 MG PO SCH ×2 (09:52→20:14)
[2019-10-01] MEDS: Rivaroxaban TAB(*) 20 MG TAB PO SCH (09:53)
[2019-10-01] MEDS: Sertraline* 100 MG TAB PO SCH (09:53)
[2019-10-01] MEDS: Tamsulosin CAP* 0.4 MG PO SCH (09:53)
[2019-10-01] MEDS: Vitamin THERAPEUTIC TAB PO SCH (09:53)
[2019-10-01] MEDS: Ferrous Sulfate TAB* 325 MG PO SCH (09:53)
[2019-10-01] MEDS: traMADol TAB* 50 MG PO SCH (09:53)
[2019-10-01] MEDS: Metoprolol Tartrate TAB* 25 MG PO SCH ×2 (09:54→20:14)
[2019-10-01] MEDS: Pantoprazole TAB * 40 MG TAB PO SCH (09:54)
[2019-10-01] MEDS: busPIRone TAB* 15 MG PO SCH ×2 (09:54→20:12)
[2019-10-01] MEDS: OLANzapine TAB* 10 MG PO SCH (09:54)
[2019-10-01] MEDS: Nicotine PATCH 21 MG/24 HR* PATCH TRANSDERM SCH (09:55)
[2019-10-01] MEDS: Nicotine Patch Removal NOTE PATCH OFF SCH (09:56)
[2019-10-01] MEDS: Mirtazapine TAB* 15 MG PO SCH (20:14)
[2019-10-02] MEDS: busPIRone TAB* 15 MG PO SCH ×2 (09:41→20:32)
[2019-10-02] MEDS: Ferrous Sulfate TAB* 325 MG PO SCH (09:41)
[2019-10-02] MEDS: OLANzapine TAB* 10 MG PO SCH (09:41)
[2019-10-02] MEDS: Metoprolol Tartrate TAB* 25 MG PO SCH ×2 (09:41→20:33)
[2019-10-02] MEDS: levETIRAcetam TAB* 500 MG PO SCH ×2 (09:41→20:33)
[2019-10-02] MEDS: Pantoprazole TAB * 40 MG TAB PO SCH (09:42)
[2019-10-02] MEDS: Sertraline* 100 MG TAB PO SCH (09:42)
[2019-10-02] MEDS: Tamsulosin CAP* 0.4 MG PO SCH (09:42)
[2019-10-02] MEDS: Vitamin THERAPEUTIC TAB PO SCH (09:42)
[2019-10-02] MEDS: traMADol TAB* 50 MG PO SCH (09:42)
[2019-10-02] MEDS: hydrALAZINE TAB* 25 MG PO SCH ×3 (09:43→20:33)
[2019-10-02] MEDS: Rivaroxaban TAB(*) 20 MG TAB PO SCH (09:43)
[2019-10-02] MEDS: Mometasone/Formoter 200/5 MDI INH SCH ×2 (09:46→20:34)
[2019-10-02] MEDS: Nicotine Patch Removal NOTE PATCH OFF SCH (09:50)
--- NOTE | 2019-10-02 12:07 | DS ---
Subjective - Subjective Service Types: [address] [facility] Day Mgmt complex over 30 min Discharge Date: 10/02/19 Subjective: Patient was discharged on 10/03/2019 CC: " Okay " Patient looks forward to watching TV. He looks forward to returning to the [facility]. The patient was seen and evaluated before discharge today. The patient reported having adequate appetite and sleep. The patient reports attending some groups groups. Per nursing no behavioral issues or overnight events reported. Patient reported tolerating medications without side effects. Justification for admission: Immediate Safety. CC " I want to cut myself with a razor " The patient was brought to [facility] by ambulance after he expressed to a staff member at the [facility] that he was going to cut his wrist with a razor. Patient did not note any recent changes or stressful life events in his life. He reported that he is getting along with others at the [facility]. He enjoys watching TV. He denied access to firearms or stockpiles of medications. He reported adequate sleep and appetite. He reported taking his medications that are provided by the staff at the [facility]. He reported that yesterday he went to see his primary care doctor and he discontinued klonopin that he was taking for the last 2 months. He denied tremor or seizures. The patient denied homicidal ideation intent or plan. The patient denied auditory and/ or visual hallucinations. MDD He reported feeling depressed for most of the time, lasting more than 2 weeks. He reported feelings of hopelessness and unintentional weight loss. Denied interruption of sleep or feeling tired throughout the day. He reported loss of energy or lack of motivation to complete tasks. He denied overwhelming feelings of guilt, or decreased concentration. Bipolar Denied symptoms of jocelynn such as having many ideas at once. Denied increased talkativeness where no one can interrupt. Denied feeling irritable most of the time while having an persistent abundance of energy most of the day without the use of energy drinks, stimulants, or recreational drug use. Denied an increase in intensity in goal directed activities. Denied having the decreased need to sleep for days , having prolonged elevated heighted mood , or feeling on top of the world. Denied impulsive risky sexual encounters. Denied spending money recklessly , going on spending sprees wiping out savings. Denied impulsively traveling out of town or country, having super fragoso, and unrealistic wealth or fame. Anxiety Denied having symptoms of anxiety such as having times where heart feels that it is beating out of chest , sweaty palms, or shallow breathing. Denied having uncomfortable or intrusive thoughts. Denied feeling restless, high strung, or worrying too much most of the time. Psychosis Does not endorse hearing things that other people do not hear or seeing things other people do not see. Denied feeling that TV is making references. Denied feeling that people are spying , following , or reading their thoughts. Phobias: Patient denied having excessive fear of a particular thing or situation. Eating disorders: Patient denied having excessive eating habits or feelings of guilt after eating. Denied repeated episodes of self induced vomiting after eating. PTSD Denied flashbacks, nightmares and avoidance of a prior traumatic event. PAST PSYCHIATRIC HISTORY: Prior Diagnosis : Major Depressive Disorder History of past Psychiatric Hospitalizations: 3 prior psychiatric admission in 1978 for cutting his wrist, 2015, and last admission at [facility] [place] History of past suicide/homicide attempts : 1 past suicide attempt in 1978 by cutting his wrist. Denied past homicidal incidents. Outpatient follow-up: [facility] PCP Dr. Sandoval Medications: Past trials of medications include zoloft 75mg and buspar 15mg BID, zyprexa 10mg daily FAMILY HISTORY: - Suicide: Denied family history of suicide. - Mental illness: Denied history mental health in the family. - Substance abuse: Denied substance abuse among family members. SUBSTANCE ABUSE HISTORY: Denied using alcohol, heroin and cocaine other illicit substances. Denied abusing pills not prescribed . Denied past Substance abuse treatment. - Tobacco: 1/2 Pack per day SOCIAL HISTORY: - Childhood: Born and raised in [place]. Raised by both parents who are both from unknown causes. 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 He is currently retired and living at the [facility]. He has no supportive contacts of family or friends. PAST MEDICAL HISTORY: Hypertension, COPD, BPH, seizure disorder - Allergies: Penicillin and Thorazine Physical Exam: Please see ED note Mental Status Exam on Admission APPEARANCE : 68 year old white male who appears much older than stated age. He is laying in bed with long cadet and appears disheveled. BEHAVIOR: Cooperative , calm EYE CONTACT: Fair PSYCHOMOTOR ACTIVITY: psychomotor retardation. MOVEMENTS: No abnormal movements observed. SPEECH : Normal rate, rhythm, volume and tone. MOOD : " Sad " AFFECT : Constricted THOUGHT PROCESS: formulated and organized in a logical, linear goal directed manner. THOUGHT CONTENT: no delusions, preoccupations, obsessions, phobias or preoccupations. PERCEPTION: No current auditory or visual hallucinations. Doesnt appear to be responding to internal cues. No evidence of depersonalization , de-realization, or illusions SUICIDALITY Suicidal with plan to cut wrist with a razor HOMICIDALITY Denied homicidal ideation, intent or plan. ORIENTATION: Oriented to self, location, and time. Insight/judgment: Poor insight and judgment Diagnosis on Admission: Schizophrenia. Nicotine use disorder, history of alcohol use disorder in full remission Diagnosis on Discharge: Schizophrenia. Nicotine use disorder, history of alcohol use disorder in full remission Condition at the time of discharge: At the time of discharge patient showed improvement of sleep and appetite. The patient was not a danger to self or others. The patient denied suicidal ideation, intent or plan. The patient denied homicidal targets, ideation, intent or plan. This patient participated in psychosocial rehabilitation and gained some insight into problems. The patient gained insight into mental illness, triggers, and treatment. The patient took medication as prescribed. The patient denied side effects of medication and objective signs of side effects were not evident. Therapy Resources were offered to the patient. Patient was given a supply of prescriptions at the time of discharge. The patient plans to attend follow up care with the follow up arrangements that were discussed and put in place. Patient was asked to keep appointments as scheduled, take medication as prescribed, have routine follow up care with their primary care physician and refrain from any use of alcohol or drugs. Objective - General Observations Appearance: Disheveled Appears Stated Age: Yes Stature: WNL Posture: WNL Eye Contact: Average Behavior/Activity: WNL - Interaction Observations Attitude Towards Examiner: Cooperative Stated Mood: Euthymic Affect: Restricted Speech Pattern/Tone: Slurred Thought Process: Coherent Perception: WNL Thought Content: WNL Hallucination Type: None Delusion Type: None - Cognitive Function Orientation: A&O x 4 Level of Consciousness: Awake Cognition: WNL - Medication Compliance Cooperative with Inpatient Medication Regimen: Yes - Group Participation Participates in Group Activities: Partial Treatment Course & Assessment Clinical Course & Impression: Hospital course part A: 69 year old with history of Major depressive disorder with plan to cut wrist with razor came to the hospital and was admitted to the [facility] at [facility]. Hospital course part B: Labs ordered included CBC, CMP, UDS, TSH, HBA1c, TSH, Toxicology screen, Urine analysis, and lipid profile. Labs were reviewed and vital signs were monitored during the course of admission.EKG ordered for risk of QT prolongation of antipsychotic medication. The patient was admitted to the adult behavioral unit and placed on 15 minute check for safety. At a later time the patient was on Q30 minute observation and staff pass privileges. With those limits being extended, patient was safe on all checks and there were no occurrence of behavioral incidents. The patient went to groups and had adequate sleep and regular appetite. Tolerated medication changes without side effects. Group therapy and services were offered. The risks, benefits, and alternative treatment options were discussed as well as of the risks of refusing treatment. Treatment associated risks discussed. After this discussion the patient made an acknowledgement of this understanding. Follow up care appointments were put in place. Monitoring for metabolic changes was reviewed and it was emphasized to the patient to be continued to be monitored upon discharge. The patient was informed not to abruptly stop or start new medications before consulting with a medical professional. Improvements shown from the time of admission include: Improved affect, sleep and decrease in anxiety. The patient expressed readiness for discharge home. The patient presents with a broader range of affect, and the absence of depressed mood, delusions, perceptual disturbance. The patient denied suicidal and or homicidal ideation intent or plan. Overall, the patient responded well to inpatient treatment as evidenced by their report of strengthening of coping mechanisms, reduced distress, and more positive outlook on circumstances. Of note there was an improvement of recognizing how emotional state can effect mood and behavior. Safety precautions were put in place which included involving the patient and care takers to closely monitor for changes in mental state. In addition, implementing follow up care, screening for the need to remove/securing firearms , weapons and stockpile of medications. Patient instructed to immediately call 911 should any safety concerns arise. Benzodiazepine medications were not continued and patient did not have signs of withdrawal. Patient advised of the lethality and dangerousness of taking medications in excess and combining medications with pain medications and/ or with alcohol and acknowledged this understanding. AIMS was performed and insignificant for involuntary movement disorders. The patient was advised of the 24 hour / 7 days a week availability of the emergency room and to call 911 in the event of an emergency such as being suicidal and/ or homicidal. The patient was informed of the contact information for [facility], Suicide Prevention and Crisis Services, National Suicide Prevention Lifeline, [facility], Alcoholics Anonymous, and [facility]. Nicotine replacement was provided to decrease nicotine cravings. Patient informed of the dangers of smoking and offered nicotine cessation resources and declined. Nicotine replacement was provided to decrease nicotine cravings. He was advised on how the days following discharge can be a vulnerable period and to look out for warning signs associated with decompensation and progression of mental illness. They were notified of the resources available in the event these situations arise. Patient was started on remeron 7.5mg qhs, ferrous sulfate 325mg po daily and zoloft was increased to 100mg po daily. Fall precautions/ Seizure precautions were put in place. A walker was provided and PT consult was placed for assistance with ambulation. Consults included to hospitalist team for anemia and recommendations for treatment of iron deficiency anemia was made. Patient advised to have regular follow up appointments with PCP. Patient was not assaultive or a behavioral problem during the course of admission. The patient showed fair hygiene and was able to carry out activities of daily living. Patient will be discharged to live at the [facility]. Contact with the [facility] was made to confirm that the patient is able to return. Medications that required refill included zoloft and new medications started remeron 7.5mg qhs and ferrous sulfate 325mg po daily Follow up appointment at [facility][1]. Patient informed of follow up appointment times. See more details for follow up care in the discharge plan. Risk factors were mitigated by establishing the patients baseline with close contacts and arranging a family meeting. Implemented precautionary safety measures by confirming no stockpiles of medications and no access to firearms, provided mental health treatment, offered substance abuse resources, treatment, and therapy groups, stabilization of depressive features, provided resources to outpatient services, as well as provided a supportive care environment and therapy resources during the course of hospitalization. Provided Trauma focused therapy. Safety plan was reviewed with the patient and treatment team. The patient verbalized options they would pursue to ensure their safety in the event they feel unsafe and not doing well. Risk factors: Male, , Age, single, history of a mental health condition, limited support system, Prior history of a suicide attempt. Trauma history. Chronic health conditions, recent hospitalization. Protective factors: At discharge patient did not have suicidal ideation, intent or plan. No suicide attempts in the last year. Currently no feelings of hopelessness, not in an occupation of social isolation , no family history of suicide, doesnt have access to firearms. Doesnt have command hallucinations and or psychotic features at this time. No current substance abuse. No current alcohol abuse. Not an anniversary of a loss of a loved one. No recent stressful life event. Currently future orientated. Patient engaged in treatment and compliant with medication. No barriers to seek mental health treatment. Not incarcerated. No history of repeated self- injurious behavior, doesnt have cultural belief that supports suicide. Sodium 138 mmol/L (135-145) 09/26/19 03:57 Potassium 3.6 mmol/L (3.5-5.0) 09/26/19 03:57 BUN 15 mg/dL (6-24) 09/26/19 03:57 Creatinine 0.80 mg/dL (0.67-1.17) 09/26/19 03:57 Hemoglobin A1c 5.7 % (4.0-5.6) H 09/27/19 07:35 Calcium 8.9 mg/dL (8.6-10.3) 09/26/19 03:57 AST 14 U/L (13-39) 09/26/19 03:57 ALT 12 U/L (7-52) 09/26/19 03:57 Triglycerides 100 mg/dL 09/27/19 07:35 Cholesterol 101 mg/dL 09/27/19 07:35 LDL Cholesterol 43 mg/dL 09/27/19 07:35 Merits Inpatient Hospitalization: No Clear for Discharge: Adequate Clinical Respons Discharge Planning - Discharge Planning Discharge Plan: Outpatient Follow Up Outpatient Program: [facility] Recommendations for Continuing Care: Medication Management, Primary Care Followup Medications: Current Medications Acetaminophen (Tylenol Tab*) 325 mg PO Q6H PRN PRN Reason: PAIN - MILD Last Admin: 09/26/19 18:20 Dose: 325 mg Al Hydrox/Mg Hydrox/Simethicone (Maalox Plus*) 30 ml PO Q4H PRN PRN Reason: INDIGESTION Buspirone HCl (Buspar Tab *) 15 mg PO BID [facility] Last Admin: 10/02/19 09:41 Dose: 15 mg Ferrous Sulfate (Ferrous Sulfate Tab*) 325 mg PO DAILY [facility] Last Admin: 10/02/19 09:41 Dose: 325 mg Hydralazine HCl (Apresoline Tab*) 25 mg PO TID [facility] Last Admin: 10/02/19 09:43 Dose: 25 mg Levetiracetam (Keppra Tab*) 1,000 mg PO BID [facility] Last Admin: 10/02/19 09:41 Dose: 1,000 mg Metoprolol Tartrate (Lopressor Tab*) 25 mg PO BID [facility] Last Admin: 10/02/19 09:41 Dose: 25 mg Mirtazapine (Remeron Tab*) 7.5 mg PO BEDTIME [facility] Last Admin: 10/01/19 20:14 Dose: 7.5 mg Mometasone Furoate/Formoterol Fumar (Dulera 200/5 Mdi*) 2 puff INH BID [facility] Last Admin: 10/02/19 09:46 Dose: 2 puff Multivitamins (Theragran Tab*) 1 tab PO DAILY [facility] Last Admin: 10/02/19 09:42 Dose: 1 tab Nicotine (Nicotine Patch 21 Mg/24 Hr*) 1 patch TRANSDERM DAILY@0800 [facility] Last Admin: 10/01/19 09:55 Dose: 1 patch Nicotine Polacrilex (Nicotine Gum*) 4 mg PO Q2H PRN PRN Reason: CRAVING Nitroglycerin (Nitroglycerin Tab 0.4 Mg*) 0.4 mg SL Q5M PRN PRN Reason: ANGINA Olanzapine (Zyprexa Tab*) 10 mg PO DAILY [facility] Last Admin: 10/02/19 09:41 Dose: 10 mg Pantoprazole Sodium (Protonix Tab*) 40 mg PO DAILY [facility] Last Admin: 10/02/19 09:42 Dose: 40 mg Pharmacy Profile Note (Nicotine Patch Removal Note*) 1 note PATCH OFF 0600 [facility] Last Admin: 10/02/19 09:50 Dose: 1 note Rivaroxaban (Xarelto(*)) 20 mg PO DAILY [facility] Last Admin: 10/02/19 09:43 Dose: 20 mg Sertraline HCl (Zoloft*) 100 mg PO DAILY [facility] Last Admin: 10/02/19 09:42 Dose: 100 mg Tamsulosin HCl (Flomax Cap*) 0.4 mg PO DAILY [facility] Last Admin: 10/02/19 09:42 Dose: 0.4 mg Tramadol HCl (Ultram*) 50 mg PO DAILY [facility] Last Admin: 10/02/19 09:42 Dose: 50 mg Discharge Planning: Prescriptions provided for discharge [x] Yes [] No Follow up care details as per social work arrangements. Patient response to discharge plan: [x] eager for discharge [] agreeable with discharge plan [] ambivalent about discharge [] disagrees with discharge today
[2019-10-02] MEDS: Nicotine PATCH 21 MG/24 HR* PATCH TRANSDERM SCH (15:09)
--- NOTE | 2019-10-02 15:36 | PN ---
Subjective - Subjective Date of Service: 10/02/19 Service Type: 30105 Hosp care 35 min high complexity Subjective: Nursing Report: Patient mostly in his room, no behavioral incidents. Slept overnight. CC: "Okay" Patient was seen and evaluated today. The patient reported he feels safe and would like to go back to the [facility]. He reported having adequate appetite and sleep. Per nursing no behavioral issues or overnight events reported. Patient reported that he is tolerating medications without side effects. Objective - General Observations Appearance: Disheveled Appears Stated Age: Yes Stature: Thin Posture: WNL Eye Contact: Average Behavior/Activity: WNL - Interaction Observations Attitude Towards Examiner: Cooperative Stated Mood: Euthymic Affect: Restricted Speech Pattern/Tone: Clear Thought Process: Coherent Perception: WNL Thought Content: WNL Hallucination Type: None Delusion Type: None - Cognitive Function Orientation: A&O x 4 Level of Consciousness: Awake - Medication Compliance Cooperative with Inpatient Medication Regimen: Yes - Group Participation Participates in Group Activities: Partial Assessment - Assessment Clinical Impression: Hospital course part A: 69 year old with history of Major depressive disorder with plan to cut wrist with razor came to the hospital and was admitted to the [facility] at [facility]. Sodium 138 mmol/L (135-145) 09/26/19 03:57 Potassium 3.6 mmol/L (3.5-5.0) 09/26/19 03:57 BUN 15 mg/dL (6-24) 09/26/19 03:57 Creatinine 0.80 mg/dL (0.67-1.17) 09/26/19 03:57 Hemoglobin A1c 5.7 % (4.0-5.6) H 09/27/19 07:35 Calcium 8.9 mg/dL (8.6-10.3) 09/26/19 03:57 AST 14 U/L (13-39) 09/26/19 03:57 ALT 12 U/L (7-52) 09/26/19 03:57 Triglycerides 100 mg/dL 09/27/19 07:35 Cholesterol 101 mg/dL 09/27/19 07:35 LDL Cholesterol 43 mg/dL 09/27/19 07:35 Plan - Plan Treatment Plan: Name: FRANCA BERUMEN Birthdate: 1950 [id number] Plan #Q30 minute observation with staff pass # The patient requires inpatient admission at this time to assure safety, receive treatment and work toward stabilization. # Collaboration with [facility] Altagracia Henriquez # Fall precautions/ seizure precautions #Order for walker and PT #EKG QTc 416 # Continue Zoloft 100mg po qhs. # Hospital consult completed and appreciate recommendations # [facility] and confirm that he can return # Continue remeron 7.5mg qhs # Nicotine replacement provided # [facility] to [facility] patient up tomorrow at 2pm #Goals before discharge include: Reduce suicidal ideation # Tentative Discharge 10/03/19 Sodium 138 mmol/L (135-145) 09/26/19 03:57 Potassium 3.6 mmol/L (3.5-5.0) 09/26/19 03:57 BUN 15 mg/dL (6-24) 09/26/19 03:57 Creatinine 0.80 mg/dL (0.67-1.17) 09/26/19 03:57 Hemoglobin A1c 5.7 % (4.0-5.6) H 09/27/19 07:35 Calcium 8.9 mg/dL (8.6-10.3) 09/26/19 03:57 AST 14 U/L (13-39) 09/26/19 03:57 ALT 12 U/L (7-52) 09/26/19 03:57 Triglycerides 100 mg/dL 09/27/19 07:35 Cholesterol 101 mg/dL 09/27/19 07:35 LDL Cholesterol 43 mg/dL 09/27/19 07:35 09/26/19 09/26/19 09/26/19 03:57 03:57 04:00 WBC 8.7 RBC 4.73 Hgb 11.6 L Hct 36 L MCV 76 L MCH 25 L MCHC 32 RDW 18 H Plt Count 151 MPV 9.4 Neut % (Auto) 61.3 Lymph % (Auto) 24.8 [place] % (Auto) 12.0 Eos % (Auto) 1.7 Baso % (Auto) 0.2 Absolute Neuts (auto) 5.3 Absolute Lymphs (auto) 2.2 Absolute Monos (auto) 1.0 H Absolute Eos (auto) 0.1 Absolute Basos (auto) 0.0 Absolute Nucleated RBC 0.0 Nucleated RBC % 0.1 Sodium 138 Potassium 3.6 Chloride 106 Carbon Dioxide 26 Anion Gap 6 BUN 15 Creatinine 0.80 Est GFR ( Amer) 116.7 Est GFR (Non-Af Amer) 96.4 BUN/Creatinine Ratio 18.8 Glucose 73 Hemoglobin A1c Calcium 8.9 Iron TIBC % Saturation Unsat Iron Binding Transferrin Ferritin Total Bilirubin 0.20 AST 14 ALT 12 Alkaline Phosphatase 67 Total Protein 6.2 L Albumin 4.0 Globulin 2.2 Albumin/Globulin Ratio 1.8 Triglycerides Cholesterol LDL Cholesterol HDL Cholesterol Vitamin B12 Folate TSH 3.14 Urine Color Straw Urine Appearance Clear Urine pH 6.0 Ur Specific [place] 1.005 L Urine Protein Negative Urine Ketones Negative Urine Blood Negative Urine Nitrate Negative Urine Bilirubin Negative Urine Urobilinogen Negative Ur Leukocyte Esterase Negative Urine Glucose Negative Salicylates < 2.50 Urine Opiates Screen Acetaminophen < 15 Ur Barbiturates Screen Ur Phencyclidine Scrn Ur Amphetamines Screen U Benzodiazepines Scrn Urine Cocaine Screen U Cannabinoids Screen Serum Alcohol < 10 09/26/19 09/27/19 09/27/19 04:00 07:35 07:35 WBC RBC Hgb Hct MCV MCH MCHC RDW Plt Count MPV Neut % (Auto) Lymph % (Auto) [place] % (Auto) Eos % (Auto) Baso % (Auto) Absolute Neuts (auto) Absolute Lymphs (auto) Absolute Monos (auto) Absolute Eos (auto) Absolute Basos (auto) Absolute Nucleated RBC Nucleated RBC % Sodium Potassium Chloride Carbon Dioxide Anion Gap BUN Creatinine Est GFR ( Amer) Est GFR (Non-Af Amer) BUN/Creatinine Ratio Glucose Hemoglobin A1c 5.7 H Calcium Iron TIBC % Saturation Unsat Iron Binding Transferrin Ferritin Total Bilirubin AST ALT Alkaline Phosphatase Total Protein Albumin Globulin Albumin/Globulin Ratio Triglycerides 100 Cholesterol 101 LDL Cholesterol 43 HDL Cholesterol 38.2 Vitamin B12 Folate TSH Urine Color Urine Appearance Urine pH Ur Specific [place] Urine Protein Urine Ketones Urine Blood Urine Nitrate Urine Bilirubin Urine Urobilinogen Ur Leukocyte Esterase Urine Glucose Salicylates Urine Opiates Screen None detected Acetaminophen Ur Barbiturates Screen None detected Ur Phencyclidine Scrn None detected Ur Amphetamines Screen None detected U Benzodiazepines Scrn None detected Urine Cocaine Screen None detected U Cannabinoids Screen None detected Serum Alcohol 09/28/19 09/28/19 08:16 08:16 WBC 8.0 RBC 5.17 Hgb 12.8 L Hct 39 L MCV 75 L MCH 25 L MCHC 33 RDW 18 H Plt Count 163 MPV 9.5 Neut % (Auto) 66.2 Lymph % (Auto) 21.2 [place] % (Auto) 10.4 Eos % (Auto) 1.9 Baso % (Auto) 0.3 Absolute Neuts (auto) 5.3 Absolute Lymphs (auto) 1.7 Absolute Monos (auto) 0.8 Absolute Eos (auto) 0.2 Absolute Basos (auto) 0.0 Absolute Nucleated RBC 0.0 Nucleated RBC % 0.0 Sodium Potassium Chloride Carbon Dioxide Anion Gap BUN Creatinine Est GFR ( Amer) Est GFR (Non-Af Amer) BUN/Creatinine Ratio Glucose Hemoglobin A1c Calcium Iron 26 L TIBC 451 H % Saturation 6 L Unsat Iron Binding < 436 Transferrin 322 Ferritin 8.4 L Total Bilirubin AST ALT Alkaline Phosphatase Total Protein Albumin Globulin Albumin/Globulin Ratio Triglycerides Cholesterol LDL Cholesterol HDL Cholesterol Vitamin B12 558 Folate > 20.00 TSH Urine Color Urine Appearance Urine pH Ur Specific [place] Urine Protein Urine Ketones Urine Blood Urine Nitrate Urine Bilirubin Urine Urobilinogen Ur Leukocyte Esterase Urine Glucose Salicylates Urine Opiates Screen Acetaminophen Ur Barbiturates Screen Ur Phencyclidine Scrn Ur Amphetamines Screen U Benzodiazepines Scrn Urine Cocaine Screen U Cannabinoids Screen Serum Alcohol Continued Medication Management: Continue Outpt Medication Medications: Current Medications Acetaminophen (Tylenol Tab*) 325 mg PO Q6H PRN PRN Reason: PAIN - MILD Last Admin: 09/26/19 18:20 Dose: 325 mg Al Hydrox/Mg Hydrox/Simethicone (Maalox Plus*) 30 ml PO Q4H PRN PRN Reason: INDIGESTION Buspirone HCl (Buspar Tab *) 15 mg PO BID [facility] Last Admin: 10/02/19 09:41 Dose: 15 mg Ferrous Sulfate (Ferrous Sulfate Tab*) 325 mg PO DAILY [facility] Last Admin: 10/02/19 09:41 Dose: 325 mg Hydralazine HCl (Apresoline Tab*) 25 mg PO TID [facility] Last Admin: 10/02/19 15:07 Dose: 25 mg Levetiracetam (Keppra Tab*) 1,000 mg PO BID [facility] Last Admin: 10/02/19 09:41 Dose: 1,000 mg Metoprolol Tartrate (Lopressor Tab*) 25 mg PO BID [facility] Last Admin: 10/02/19 09:41 Dose: 25 mg Mirtazapine (Remeron Tab*) 7.5 mg PO BEDTIME [facility] Last Admin: 10/01/19 20:14 Dose: 7.5 mg Mometasone Furoate/Formoterol Fumar (Dulera 200/5 Mdi*) 2 puff INH BID [facility] Last Admin: 10/02/19 09:46 Dose: 2 puff Multivitamins (Theragran Tab*) 1 tab PO DAILY [facility] Last Admin: 10/02/19 09:42 Dose: 1 tab Nicotine (Nicotine Patch 21 Mg/24 Hr*) 1 patch TRANSDERM DAILY@0800 [facility] Last Admin: 10/02/19 15:09 Dose: Not Given Nicotine Polacrilex (Nicotine Gum*) 4 mg PO Q2H PRN PRN Reason: CRAVING Nitroglycerin (Nitroglycerin Tab 0.4 Mg*) 0.4 mg SL Q5M PRN PRN Reason: ANGINA Olanzapine (Zyprexa Tab*) 10 mg PO DAILY [facility] Last Admin: 10/02/19 09:41 Dose: 10 mg Pantoprazole Sodium (Protonix Tab*) 40 mg PO DAILY [facility] Last Admin: 10/02/19 09:42 Dose: 40 mg Pharmacy Profile Note (Nicotine Patch Removal Note*) 1 note PATCH OFF 0600 [facility] Last Admin: 10/02/19 09:50 Dose: 1 note Rivaroxaban (Xarelto(*)) 20 mg PO DAILY [facility] Last Admin: 10/02/19 09:43 Dose: 20 mg Sertraline HCl (Zoloft*) 100 mg PO DAILY [facility] Last Admin: 10/02/19 09:42 Dose: 100 mg Tamsulosin HCl (Flomax Cap*) 0.4 mg PO DAILY [facility] Last Admin: 10/02/19 09:42 Dose: 0.4 mg Tramadol HCl (Ultram*) 50 mg PO DAILY [facility] Last Admin: 10/02/19 09:42 Dose: 50 mg - Discharge Plan Discharge Plan: Inpatient Hospitalization
[2019-10-02] MEDS: Mirtazapine TAB* 15 MG PO SCH (20:31)
[2019-10-03 09:02] VITALS: BP 124/54
[2019-10-03] MEDS: Tamsulosin CAP* 0.4 MG PO SCH (10:12)
[2019-10-03] MEDS: Vitamin THERAPEUTIC TAB PO SCH (10:12)
[2019-10-03] MEDS: Nicotine Patch Removal NOTE PATCH OFF SCH (10:12)
[2019-10-03] MEDS: Sertraline* 100 MG TAB PO SCH (10:13)
[2019-10-03] MEDS: busPIRone TAB* 15 MG PO SCH (10:13)
[2019-10-03] MEDS: Pantoprazole TAB * 40 MG TAB PO SCH (10:13)
[2019-10-03] MEDS: OLANzapine TAB* 10 MG PO SCH (10:13)
[2019-10-03] MEDS: levETIRAcetam TAB* 500 MG PO SCH (10:13)
[2019-10-03] MEDS: Metoprolol Tartrate TAB* 25 MG PO SCH (10:13)
[2019-10-03] MEDS: traMADol TAB* 50 MG PO SCH (10:13)
[2019-10-03] MEDS: Ferrous Sulfate TAB* 325 MG PO SCH (10:13)
[2019-10-03] MEDS: hydrALAZINE TAB* 25 MG PO SCH ×2 (10:14→14:18)
[2019-10-03] MEDS: Mometasone/Formoter 200/5 MDI INH SCH (10:14)
[2019-10-03] MEDS: Nicotine PATCH 21 MG/24 HR* PATCH TRANSDERM SCH (10:17)
[2019-10-03] MEDS: Rivaroxaban TAB(*) 20 MG TAB PO SCH (13:32)
== END 2019-10-03 14:30 | disposition home or self-care (01) | DRG 885 ==
LOC: ED 02:34 → BSU 10:08
PROVIDERS: ADMIT Psychiatry & Neurology Psychiatry; ATTEND Psychiatry & Neurology Psychiatry
DX: F20.9 Schizophrenia, unspecified (principal); R45.851 Suicidal ideations; F41.9 Anxiety disorder, unspecified; I10 Essential (primary) hypertension; J44.9 Chronic obstructive pulmonary disease, unspecified; K21.9 Gastro-esophageal reflux disease without esophagitis; F32.9 Major depressive disorder, single episode, unspecified; F17.210 Nicotine dependence, cigarettes, uncomplicated; N40.0 Benign prostatic hyperplasia without lower urinary tract symptoms; G40.909 Epilepsy, unspecified, not intractable, without status epilepticus; D50.9 Iron deficiency anemia, unspecified; Z28.21 Immunization not carried out because of patient refusal; Z88.0 Allergy status to penicillin; Z88.8 Allergy status to other drugs, medicaments and biological substances; Z91.5 Personal history of self-harm
CPT/HCPCS: 36415; 80053; 80061; 80307; 80320; 80329; 81003; 82607; 82728; 82746; 83036; 83540; 83550; 84443; 85025; 93005; 99222; 99231; 99233; 99238; 99285; A9270-GY; G0480

== ENCOUNTER 2022-02-09 23:01 | Inpatient (IN) ==
[2022-02-10] MEDS ORDERED: NS 0.9% 1000 ml BAG 1,000 ML IV SCH (01:00)
[2022-02-10] MEDS ORDERED: Heparin DRIP 25,000 UNITS BAG 25,000 UNITS/500 ML BAG IV SCH (01:00)
[2022-02-10] MEDS: Heparin 5000 UNITS/ML 1 mL VIAL IV SCH ×2 (01:37→09:09)
[2022-02-10 01:44] LABS: High Sensitivity Troponin 1 Hr 342 pg/mL (<20)
[2022-02-10] MEDS ORDERED: Nitroglycerin 0.4 mg/hr PATCH (10 mg) TRANSDERM ONE (01:45)
[2022-02-10] MEDS ORDERED: Nicotine GUM 4MG FRUIT FLAVOR PO PRN (01:46)
[2022-02-10] MEDS ORDERED: Albuterol HFA INHALER 8 gm MDI INH PRN (02:02)
[2022-02-10] MEDS: Nicotine PATCH 21 MG/24 HR PATCH TRANSDERM SCH ×2 (02:07→14:50)
[2022-02-10] MEDS: Nitroglycerin 0.6 mg TAB SL PRN ×2 (05:40→14:55)
[2022-02-10 07:32] LABS: ABS Lymphocytes 0.8 10^3/ul (1.0-4.8); ABS Monocytes 0.8 10^3/ul (0-0.8); ABS Neutrophils 5.7 10^3/ul (1.5-7.7); Eosinophil % 0.4 %; Hematocrit 39 % (42-52); Hemoglobin 12.7 g/dL (14.0-18.0); Lymphocyte % 11.4 %; Mean Corpuscular HGB Conc 33 g/dL (31-36); Mean Corpuscular Hemoglobin 28 pg (27-31); Mean Corpuscular Volume 84 fL (80-94); Mean Platelet Volume 8.2 fL (7.4-10.4); Platelet Count 233 10^3/uL (150-450); Red Blood Count 4.61 10^6 /uL (4.18-5.48); Red Cell Distribution Width 14 % (10-15); White Blood Count 7.4 10^3/uL (3.5-10.8)
[2022-02-10] MEDS: Mometasone/Formoter 200/5 MDI INH SCH ×2 (07:47→20:01)
[2022-02-10 08:17] LABS: C Reactive Protein 19.61 mg/L (<8.01); Calcium 8.6 mg/dL (8.6-10.3); Magnesium 1.9 mg/dL (1.9-2.7); Potassium 4.6 mmol/L (3.5-5.0); eGFR CKD-EPI 94.1 (>60)
[2022-02-10] MEDS ORDERED: Fluticasone-Salmeterol 250-50 DISKUS NF INH SCH (09:00)
[2022-02-10 16:30] LABS: HDL Cholesterol 24.8 mg/dL
[2022-02-10 16:52] LABS: TSH Ultra Thyroid Stim Horm 1.87 mcIU/mL (0.34-5.60)
[2022-02-10 19:27] LABS: Urine Color Yellow
[2022-02-10 19:28] LABS: Urine Appearance Slightly Cloudy; Urine Blood Trace (Intact) (Negative); Urine Ketones Negative (Negative); Urine Protein Negative (Negative); Urine Specific Gravity 1.025 (1.005-1.030); Urine Urobilinogen 0.2 (Negative) (Negative)
[2022-02-10 19:29] LABS: Urine Bilirubin Negative (Negative); Urine Glucose Negative (Negative); Urine Nitrite Positive (Negative)
[2022-02-10 19:36] LABS: Urine Bacteria Absent (Absent); Urine Red Blood Cell Trace(0-2/hpf) (Absent); Urine White Blood Cell 3+(>20/hpf) (Absent)
[2022-02-10] MEDS ORDERED: Heparin 5000 UNITS/ML 1 mL VIAL SUBCUT SCH (22:00)
[2022-02-11] MEDS: Mometasone/Formoter 200/5 MDI INH SCH ×2 (07:59→19:56)
[2022-02-11 08:17] LABS: ABS Lymphocytes 0.8 10^3/ul (1.0-4.8); ABS Monocytes 0.6 10^3/ul (0-0.8); ABS Neutrophils 3.8 10^3/ul (1.5-7.7); Hematocrit 38 % (42-52); Hemoglobin 12.7 g/dL (14.0-18.0); Lymphocyte % 15.1 %; Mean Corpuscular HGB Conc 34 g/dL (31-36); Mean Corpuscular Hemoglobin 28 pg (27-31); Mean Corpuscular Volume 84 fL (80-94); Mean Platelet Volume 8.5 fL (7.4-10.4); Nucleated Red Blood Cells % 0.1; Platelet Count 228 10^3/uL (150-450); Red Blood Count 4.52 10^6 /uL (4.18-5.48); Red Cell Distribution Width 13 % (10-15); White Blood Count 5.2 10^3/uL (3.5-10.8)
[2022-02-11 08:54] LABS: PCO2 Arterial 57 mmHg (35-45); PO2 Arterial 81 mmHg (80-100)
[2022-02-11] MEDS ORDERED: Isosorbide Mononit ER 30mg TAB PO SCH (09:00)
[2022-02-11 09:06] LABS: Calcium 8.7 mg/dL (8.6-10.3); eGFR CKD-EPI 88.9 (>60)
[2022-02-11] MEDS: Aspirin EC 81 mg TAB.EC (enteric coated) PO SCH (12:42)
[2022-02-11] MEDS: Nicotine PATCH 21 MG/24 HR PATCH TRANSDERM SCH (12:43)
[2022-02-11] MEDS: Heparin 5000 UNITS/ML 1 mL VIAL SUBCUT SCH (20:34)
[2022-02-12] MEDS: Heparin 5000 UNITS/ML 1 mL VIAL SUBCUT SCH ×3 (05:53→22:11)
[2022-02-12 06:22] LABS: ABS Lymphocytes 1.4 10^3/ul (1.0-4.8); ABS Monocytes 0.8 10^3/ul (0-0.8); ABS Neutrophils 5.2 10^3/ul (1.5-7.7); Hematocrit 38 % (42-52); Hemoglobin 12.6 g/dL (14.0-18.0); Lymphocyte % 18.7 %; Mean Corpuscular HGB Conc 33 g/dL (31-36); Mean Corpuscular Hemoglobin 28 pg (27-31); Mean Corpuscular Volume 83 fL (80-94); Mean Platelet Volume 8.8 fL (7.4-10.4); Platelet Count 242 10^3/uL (150-450); Red Blood Count 4.57 10^6 /uL (4.18-5.48); Red Cell Distribution Width 14 % (10-15); White Blood Count 7.4 10^3/uL (3.5-10.8)
[2022-02-12 06:57] LABS: Calcium 8.9 mg/dL (8.6-10.3); Magnesium 1.8 mg/dL (1.9-2.7); eGFR CKD-EPI 95.1 (>60)
[2022-02-12] MEDS ORDERED: Magnesium Sulfate IV 1GM/100ML 1 GM/100 ML BAG IV ONE (08:30)
[2022-02-12] MEDS: Mometasone/Formoter 200/5 MDI INH SCH ×3 (08:58→19:15)
[2022-02-12] MEDS ORDERED: LORazepam 2 mg VIAL 1 ml ONE (10:10)
[2022-02-12] MEDS ORDERED: Lorazepam PYXIS KEY ONE ×2 (10:10→11:08)
[2022-02-12] MEDS ORDERED: Regadenoson 0.4 MG/5 ML SYRINGE ONE (10:47)
[2022-02-12] MEDS ORDERED: Aminophylline 25 MG/ML VIAL ONE (10:47)
[2022-02-12] MEDS: Nicotine PATCH 21 MG/24 HR PATCH TRANSDERM SCH (12:31)
[2022-02-12] MEDS: Aspirin EC 81 mg TAB.EC (enteric coated) PO SCH (12:32)
[2022-02-12] MEDS ORDERED: Sulfamethox/Trimethoprim DS TAB 800/160 mg PO SCH (14:58)
[2022-02-13] MEDS: Heparin 5000 UNITS/ML 1 mL VIAL SUBCUT SCH (05:38)
[2022-02-13 05:49] LABS: ABS Lymphocytes 1.3 10^3/ul (1.0-4.8); ABS Monocytes 0.9 10^3/ul (0-0.8); ABS Neutrophils 6.1 10^3/ul (1.5-7.7); Hematocrit 37 % (42-52); Hemoglobin 12.2 g/dL (14.0-18.0); Lymphocyte % 16.2 %; Mean Corpuscular HGB Conc 33 g/dL (31-36); Mean Corpuscular Hemoglobin 28 pg (27-31); Mean Corpuscular Volume 84 fL (80-94); Mean Platelet Volume 8.6 fL (7.4-10.4); Platelet Count 247 10^3/uL (150-450); Red Blood Count 4.41 10^6 /uL (4.18-5.48); Red Cell Distribution Width 14 % (10-15); White Blood Count 8.3 10^3/uL (3.5-10.8)
[2022-02-13] MEDS: Mometasone/Formoter 200/5 MDI INH SCH (08:28)
[2022-02-13] MEDS: Aspirin EC 81 mg TAB.EC (enteric coated) PO SCH (08:35)
[2022-02-13] MEDS: Nicotine PATCH 21 MG/24 HR PATCH TRANSDERM SCH (10:58)
[2022-02-13 12:03] LABS: Rapid COVID-19 Molecular Undetected (Undetected)
[2022-02-13 16:27] VITALS: BP 128/63
== END 2022-02-13 16:08 | DRG 280 ==
LOC: ED 23:01 → EDHOLD 02-10 00:54 → SUATTDRO 02-10 00:54 → MEDTELE 02-10 03:26
PROVIDERS: ADMIT Internal Medicine; ATTEND Hospitalist

== ENCOUNTER 2023-02-09 18:44 | Inpatient (IN) ==
[2023-02-09] MEDS ORDERED: Albuterol/Ipratropium NEB.SOL (2.5/0.5 MG) 3 ML NEB.SOLN INH PRN (21:26)
[2023-02-09] MEDS ORDERED: cefTRIAXone 1 gm/50 mL D5W 1 GM/50 ML BAG IV SCH (21:45)
[2023-02-09] MEDS ORDERED: Azithromycin 500 mg/250 ml NS 500 MG/250 ML BAG IVPB SCH (22:00)
[2023-02-09] MEDS: Enoxaparin 40 MG/0.4 ML SYR SUBCUT SCH (22:02)
[2023-02-10 07:08] LABS: ABS Lymphocytes 0.6 10^3/uL (1.0-4.8); ABS Monocytes 0.4 10^3/uL (0.0-1.1); ABS Neutrophils 11.5 10^3/uL (1.5-7.6); Hematocrit 43.8 % (38-53); Hemoglobin 14.1 g/dL (13.2-16.3); Lymphocyte % 4.5 %; Mean Corpuscular Hemoglobin 27.9 pg (27-33); Mean Corpuscular Hgb Conc 32.3 g/dL (31-36); Mean Corpuscular Volume 86.4 fL (80-97); Mean Platelet Volume 9.6 fL (7.5-11.2); Platelet Count 136 10^3/uL (150-450); Red Blood Count 5.07 10^6/uL (4.06-5.63); Red Cell Distribution Width 14.5 % (12-17); White Blood Count 12.4 10^3/uL (3.6-10.2)
[2023-02-10 07:21] LABS: Calcium 8.6 mg/dL (8.6-10.3); Creatinine, Serum 1.07 mg/dL (0.67-1.17); Potassium 4.8 mmol/L (3.5-5.0); eGFR CKD-EPI 74.7 (>60)
[2023-02-10 08:05] LABS: TSH Ultra Thyroid Stim Horm 1.43 mcIU/mL (0.34-5.60)
[2023-02-10] MEDS ORDERED: Aspirin EC 81 mg TAB.EC (enteric coated) PO SCH (09:00)
[2023-02-10] MEDS: Nicotine PATCH 21 MG/24 HR PATCH TRANSDERM SCH (09:07)
[2023-02-10] MEDS: CMCS: FLUTICAS/UMECLI/VILANT 100-62.5-25 MDI (NF) INH SCH (09:35)
[2023-02-10] MEDS ORDERED: Iohexol 350 (CONTRAST) 500 ML MDV IV ONE (11:00)
[2023-02-10] MEDS ORDERED: Sulfur Hexaflouride MICROSPHR 25 MG VIAL ONE (14:17)
[2023-02-10 15:20] LABS: High Sensitivity Troponin 1 Hr 150 pg/mL (<20)
[2023-02-10 17:21] LABS: High Sensitivity Troponin 3 Hr 136 pg/mL (<20)
[2023-02-10] MEDS: cefTRIAXone 1 gm/50 mL D5W 1 GM/50 ML BAG IV SCH (20:15)
[2023-02-10] MEDS: Enoxaparin 40 MG/0.4 ML SYR SUBCUT SCH (20:22)
[2023-02-10] MEDS: Azithromycin 500 mg/250 ml NS 500 MG/250 ML BAG IVPB SCH (21:15)
[2023-02-11] MEDS: CMCS: FLUTICAS/UMECLI/VILANT 100-62.5-25 MDI (NF) INH SCH (07:05)
[2023-02-11] MEDS: Nicotine PATCH 21 MG/24 HR PATCH TRANSDERM SCH (10:15)
[2023-02-11 10:37] LABS: Hemoglobin 13.3 g/dL (13.2-16.3); Mean Corpuscular Hemoglobin 28.1 pg (27-33); Mean Corpuscular Hgb Conc 32.6 g/dL (31-36); Mean Corpuscular Volume 86.4 fL (80-97); Red Blood Count 4.74 10^6/uL (4.06-5.63); White Blood Count 10.6 10^3/uL (3.6-10.2)
[2023-02-11 10:43] LABS: ALT 32 U/L (7-52); AST 28 U/L (13-39); Albumin 3.1 g/dL (3.2-5.2); Albumin/Globulin Ratio 1.2 (1-3); Alkaline Phosphatase 75 U/L (35-149); Anion Gap 5 mmol/L (2-16); Blood Urea Nitrogen 29 mg/dL (6-24); CO2 Carbon Dioxide 29 mmol/L (22-32); Calcium 8.7 mg/dL (8.6-10.3); Chloride 107 mmol/L (101-111); Creatinine, Serum 0.92 mg/dL (0.67-1.17); Globulin 2.6 g/dL (2-4); Glucose 87 mg/dL (70-100); Magnesium 1.9 mg/dL (1.9-2.7); Potassium 4.5 mmol/L (3.5-5.0); Sodium 141 mmol/L (135-145); Total Protein 5.7 g/dL (6.4-8.9); eGFR CKD-EPI 89.5 (>60)
[2023-02-11 10:44] LABS: CRP High Sensitivity > 80.00 mg/L (<2.00)
[2023-02-11 12:53] LABS: ABS Lymphocytes 1.4 10^3/uL (1.0-4.8); ABS Monocytes 1.1 10^3/uL (0.0-1.1); ABS Neutrophils 8.2 10^3/uL (1.5-7.6); Lymphocyte % 12.8 %; Mean Platelet Volume 9.1 fL (7.5-11.2); Platelet Count 160 10^3/uL (150-450)
[2023-02-11 17:38] LABS: PCO2 Arterial 57 mmHg (35-45); PO2 Arterial 71 mmHg (80-100)
[2023-02-11] MEDS: cefTRIAXone 1 gm/50 mL D5W 1 GM/50 ML BAG IV SCH (21:05)
[2023-02-11] MEDS: Enoxaparin 40 MG/0.4 ML SYR SUBCUT SCH (21:05)
[2023-02-11] MEDS: Azithromycin 500 mg/250 ml NS 500 MG/250 ML BAG IVPB SCH (22:33)
[2023-02-12 05:36] LABS: ABS Lymphocytes 1.5 10^3/uL (1.0-4.8); ABS Monocytes 0.9 10^3/uL (0.0-1.1); ABS Neutrophils 7.5 10^3/uL (1.5-7.6); Hematocrit 40.6 % (38-53); Hemoglobin 13.3 g/dL (13.2-16.3); Lymphocyte % 14.9 %; Mean Corpuscular Hemoglobin 27.7 pg (27-33); Mean Corpuscular Hgb Conc 32.9 g/dL (31-36); Mean Corpuscular Volume 84.1 fL (80-97); Mean Platelet Volume 8.9 fL (7.5-11.2); Platelet Count 210 10^3/uL (150-450); Red Blood Count 4.82 10^6/uL (4.06-5.63); Red Cell Distribution Width 14.8 % (12-17); White Blood Count 9.9 10^3/uL (3.6-10.2)
[2023-02-12 05:45] LABS: Albumin 2.9 g/dL (3.2-5.2); Albumin/Globulin Ratio 1.2 (1-3); C Reactive Protein 50.07 mg/L (<8.01); Calcium 8.4 mg/dL (8.6-10.3); Creatinine, Serum 0.98 mg/dL (0.67-1.17); Globulin 2.5 g/dL (2-4); Magnesium 1.7 mg/dL (1.9-2.7); Potassium 4.7 mmol/L (3.5-5.0); Total Bilirubin 0.2 mg/dL (0.2-1.0); Total Protein 5.4 g/dL (6.4-8.9)
[2023-02-12] MEDS ORDERED: Magnesium Sulf 4 GM/100 ML IV 4,000 MG/100 ML BAG IVPB ONE (07:13)
[2023-02-12] MEDS: CMCS: FLUTICAS/UMECLI/VILANT 100-62.5-25 MDI (NF) INH SCH (08:23)
[2023-02-12] MEDS: Nicotine PATCH 21 MG/24 HR PATCH TRANSDERM SCH (10:24)
[2023-02-12] MEDS: cefTRIAXone 1 gm/50 mL D5W 1 GM/50 ML BAG IV SCH (20:48)
[2023-02-12] MEDS: Enoxaparin 40 MG/0.4 ML SYR SUBCUT SCH (20:59)
[2023-02-12] MEDS: Azithromycin 500 mg/250 ml NS 500 MG/250 ML BAG IVPB SCH (22:09)
[2023-02-13 05:23] LABS: Hematocrit 41.8 % (38-53); Hemoglobin 13.9 g/dL (13.2-16.3); Mean Corpuscular Hemoglobin 27.8 pg (27-33); Mean Corpuscular Hgb Conc 33.3 g/dL (31-36); Mean Corpuscular Volume 83.5 fL (80-97); Mean Platelet Volume 8.2 fL (7.5-11.2); Platelet Count 215 10^3/uL (150-450); Red Cell Distribution Width 14.4 % (12-17); White Blood Count 9.6 10^3/uL (3.6-10.2)
[2023-02-13 05:42] LABS: Calcium 8.5 mg/dL (8.6-10.3); Creatinine, Serum 1.21 mg/dL (0.67-1.17); Potassium 4.7 mmol/L (3.5-5.0); eGFR CKD-EPI 64.4 (>60)
[2023-02-13 06:32] LABS: ABS Basophils 0.1 10^3/uL (0.0-0.1); ABS Lymphocytes 1.1 10^3/uL (1.0-4.8); ABS Neutrophils 7.5 10^3/uL (1.5-7.6); ABS Nucleated RBC 0.01 10^3/ul; Nucleated Red Blood Cells % 0.1 /100 WBC (0.0-0.4)
[2023-02-13] MEDS: CMCS: FLUTICAS/UMECLI/VILANT 100-62.5-25 MDI (NF) INH SCH (07:13)
[2023-02-13] MEDS: Nicotine PATCH 21 MG/24 HR PATCH TRANSDERM SCH (09:22)
[2023-02-13] MEDS: cefTRIAXone 1 gm/50 mL D5W 1 GM/50 ML BAG IV SCH (20:00)
[2023-02-13] MEDS: Enoxaparin 40 MG/0.4 ML SYR SUBCUT SCH (20:00)
[2023-02-13] MEDS: Azithromycin 500 mg/250 ml NS 500 MG/250 ML BAG IVPB SCH (21:49)
[2023-02-14 06:48] LABS: Calcium 8.6 mg/dL (8.6-10.3); Creatinine, Serum 0.85 mg/dL (0.67-1.17); Potassium 4.3 mmol/L (3.5-5.0); eGFR CKD-EPI 93.5 (>60)
[2023-02-14] MEDS: CMCS: FLUTICAS/UMECLI/VILANT 100-62.5-25 MDI (NF) INH SCH (07:19)
[2023-02-14] MEDS: Nicotine PATCH 21 MG/24 HR PATCH TRANSDERM SCH (10:31)
[2023-02-14] MEDS: Enoxaparin 40 MG/0.4 ML SYR SUBCUT SCH (21:16)
[2023-02-15 07:02] LABS: ABS Lymphocytes 1.2 10^3/uL (1.0-4.8); ABS Monocytes 0.9 10^3/uL (0.0-1.1); ABS Neutrophils 8.1 10^3/uL (1.5-7.6); ABS Nucleated RBC 0.01 10^3/ul; Eosinophil % 0.1 %; Hematocrit 47.2 % (38-53); Hemoglobin 15.5 g/dL (13.2-16.3); Mean Corpuscular Hemoglobin 28.2 pg (27-33); Mean Corpuscular Hgb Conc 32.9 g/dL (31-36); Mean Corpuscular Volume 85.6 fL (80-97); Platelet Count 229 10^3/uL (150-450); Red Blood Count 5.51 10^6/uL (4.06-5.63); Red Cell Distribution Width 14.6 % (12-17); White Blood Count 10.3 10^3/uL (3.6-10.2)
[2023-02-15 07:19] LABS: C Reactive Protein 8.19 mg/L (<8.01); Calcium 9.1 mg/dL (8.6-10.3); Creatinine, Serum 1.08 mg/dL (0.67-1.17); Magnesium 1.9 mg/dL (1.9-2.7); Potassium 4.8 mmol/L (3.5-5.0); eGFR CKD-EPI 73.8 (>60)
[2023-02-15] MEDS: CMCS: FLUTICAS/UMECLI/VILANT 100-62.5-25 MDI (NF) INH SCH (07:58)
[2023-02-15] MEDS: Nicotine PATCH 21 MG/24 HR PATCH TRANSDERM SCH (08:22)
[2023-02-15 10:35] VITALS: BP 180/83
== END 2023-02-15 15:20 | DRG 193 ==
LOC: ED 18:44 → EDHOLD 18:44 → MEDTELE 02-10 12:24 → SUATTDRO 02-11 10:30
PROVIDERS: ADMIT Physician Assistant; ATTEND Internal Medicine